=== PATIENT | female | born 1935 | race Caucasian/White ===

== ENCOUNTER 2018-05-18 10:21 | Observation (INO) | payer MEDICARE ==
--- NOTE | 2018-05-18 10:59 | ED ---
Lower Extremity - HPI Summary HPI Summary: A 83 y/o female brought in by ambulance presents to the ED c/o left leg pain reaching 6/10 in severity. In the ED room, the patient has a pulse of 164/83. As per triage, "Pt complaints of left leg pain since jan. Patient was suppose to have Sx but didn't go through with surgery due to bad heart valve. Patient fell 6 weeks ago". Patient stated that she is worried about her dog (11 y/o adela) as it is very thin and has not been eating. Additionally, the patient noted that her house is a disaster. She stated that she is being treated at several hospitals for medical issues for incontinence, aortic stenosis, valve replacement, and hip replacement, but cannot remember what hospitals she is being treated at. She mentions [facility] and [facility], but cannot recall her treatment at each facility. She stated that there was a planned hip replacement on February 07, 2018, but it was not done due to the patient's valve condition where it was pushed to May 2018. She came to the ED today because when she was attempting to feed her dog, all of her muscles in the left leg hurt. She noted that she could not ambulate and came to [facility] because she does not have any close friends and family and is hoping someone will feed her dog. Patient stated that she use to have a productive cough that brought up yellow flem, however, she is fine now. She denies any diarrhea, fever, chills, or diaphoresis. She stated that she fell 4 weeks back. Patient has not been eating well for past 2 days. Patient stated that she has no electricity and rodent infestation at her home. - History of Current Complaint Chief Complaint: EDExtremityLower Stated Complaint: DECREASED MOBILITY Time Seen by Provider: 05/18/18 10:26 Hx Obtained From: Patient Mechanism Of Injury: Fall From A Standing Position, Other - PAIN HAS BEEN PRESENT SINCE JANUARY 2018 Onset of Pain: Immediate Onset/Duration: Still Present Severity Initially: Moderate Severity Currently: Moderate Pain Intensity: 6 Pain Scale Used: 0-10 Numeric Location: Is Discrete @ - LEFT LEG Character Of Pain: Spasmodic Associated Signs And Symptoms: Positive: Negative Aggravating Factor(s): Standing Alleviating Factor(s): Nothing Able to Bear Weight: No - PER PATIENT - Allergies/Home Medications Allergies/Adverse Reactions: Allergies Allergy/AdvReac Type Severity Reaction Status Date / Time Opioids - Morphine Analogues Allergy Vomiting Verified 05/18/18 10:36 Penicillins Allergy Unknown Verified 05/18/18 10:36 Reaction Details Home Medications: Home Medications Metoprolol Tartrate TAB* [Lopressor TAB*] 25 mg PO BID 05/18/18 [History Confirmed 05/18/18] PMH/Surg Hx/FS Hx/Imm Hx Endocrine/Hematology History: Reports: Hx Thyroid Disease Denies: Hx Diabetes Cardiovascular History: Reports: Hx Hypertension, Other Cardiovascular Problems/ Disorders - MILD AORTIC STENOSIS PER PT Respiratory History: Reports: Hx Asthma Denies: Hx Chronic Obstructive Pulmonary Disease (COPD) GI History: Denies: Hx Ulcer Musculoskeletal History: Reports: Hx Arthritis - KNEES Sensory History: Reports: Hx Cataracts - BILAT, Hx Contacts or Glasses - GLASSES Denies: Hx Hearing Aid Opthamlomology History: Reports: Hx Cataracts - BILAT, Hx Contacts or Glasses - GLASSES Psychiatric History: Reports: Hx Anxiety - Surgical History Surgery Procedure, Year, and Place: THYROIDECTOMY, GALL BLADDER REMOVED, right knee replacement Hx Anesthesia Reactions: No Infectious Disease History: No Infectious Disease History: Denies: Hx Clostridium Difficile, Hx Hepatitis, Hx Human Immunodeficiency Virus (HIV), Hx of Known/Suspected MRSA, Hx Shingles, Hx Tuberculosis, Hx Known/ Suspected VRE, Hx Known/Suspected VRSA, History Other Infectious Disease, Traveled Outside the [place] in Last 30 Days - Family History Known Family History: Positive: Cardiac Disease - CHF, Hypertension, Diabetes - Social History Alcohol Use: None Substance Use Type: Reports: None Smoking Status (MU): Never Smoked Tobacco Review of Systems Negative: Fever, Chills, Skin Diaphoresis Negative: Erythema Negative: Sore Throat Negative: Chest Pain Negative: Shortness Of Breath, Cough Positive: Other - POSITIVE: APPETITE CHANGES. Negative: Abdominal Pain, Vomiting, Diarrhea, Nausea Negative: dysuria, hematuria Positive: Other - POSITIVE: LEFT LEG PAIN. Negative: Myalgia, Edema Negative: Rash Neurological: Other - NEGATIVE: DIZZINESS All Other Systems Reviewed And Are Negative: Yes Physical Exam - Summary Physical Exam Summary: Constitutional: Well-developed, Well-nourished, Alert. (-) Distressed Skin: Warm, Dry HENT: Normocephalic; Atraumatic Eyes: Conjunctiva normal Neck: Musculoskeletal ROM normal neck. (-) JVD, (-) Stridor, (-) Tracheal deviation Cardio: Rhythm regular, rate normal, Heart sounds normal; Intact distal pulses; The pedal pulses are 2+ and symmetric. Radial pulses are 2+ and symmetric. (-) Murmur Pulmonary/Chest wall: Effort normal. (-) Respiratory distress, (-) Wheezes, (-) Rales Abd: Soft, (-) epigastric tenderness, (-) Distension, (-) Guarding, (-) Rebound Musculoskeletal: Tender in left hip and left knee. Significant weeping edema retirement up to the calf. Lymph: (-) Cervical adenopathy Neuro: Alert, Oriented x3 Psych: Mood and affect Normal Triage Information Reviewed: Yes Vital Signs On Initial Exam: Initial Vitals Temp Pulse Resp BP Pulse Ox 99.0 F 79 16 164/83 100 05/18/18 10:26 05/18/18 10:26 05/18/18 10:26 05/18/18 10:26 05/18/18 10:26 Vital Signs Reviewed: Yes Diagnostics - Vital Signs Vital Signs Temp Pulse Resp BP Pulse Ox 05/18/18 10:26 99.0 F 79 16 164/83 100 - Laboratory Result Diagrams: 05/18/18 11:40 05/18/18 11:17 Lab Statement: Any lab studies that have been ordered have been reviewed, and results considered in the medical decision making process. - Radiology CXR Radiology Interpretation Completed By: Radiologist Summary of Radiographic Findings: CARDIOMEGALY. INTERSTITIAL EDEMA CONSISTENT WITH VASCULAR CONGESTION. NO ALVEOLAR CONSOLIDATION IS NOTED. ED PHYSICIAN REVIEWED THIS RADIOLOGY REPORT. KNEE XR Radiology Interpretation Completed By: Radiologist Summary of Radiographic Findings: There is deformity of the left knee with degenerative changes of the. patellofemoral joint. ED PHYSICIAN REVIEWED THIS RADIOLOGY REPORT. - CT PELVIS CT CT Interpretation Completed By: Radiologist Summary of CT Findings: 1. OSTEOPENIA. 2. OSTEOARTHRITIS. 3. NO ACUTE OSSEOUS INJURY. IF SYMPTOMS PERSIST, RECOMMEND REPEAT IMAGING. ED PHYSICIAN REVIEWED THIS RADIOLOGY REPORT. Lower Extremity Course/Dx - Course Assessment/Plan: A 83 y/o female brought in by ambulance presents to the ED c/o left leg pain reaching 6/10 in severity. In the ED room, the patient has a pulse of 164/83. She came to the ED today because when she was attempting to feed her dog, all of her muscles in the left leg hurt. She noted that she could not ambulate and came to [facility] because she does not have any close friends and family and is hoping someone will feed her dog. Patient stated that she use to have a productive cough that brought up yellow flem, however, she is fine now. She denies any diarrhea, fever, chills, or diaphoresis. She stated that she fell 4 weeks back. Patient has not been eating well for past 2 days. Patient stated that she has no electricity and rodent infestation at her home. Physical examination findings significant for tender in left hip and left knee. Significant weeping edema retirement up to the calf. Assessment/Plan revealed significant concerns for the patient. Patient is not eating. There could be safety issues with hoarding at patient's house. Patient has no electricity and has a rodent infestation. A Pelvis CT revealed 1. Osteopenia. 2. Osteoarthritis. 3. No acute osseous injury. If symptoms persist, recommend repeat imaging. A CXR revealed cardiomegaly. Interstitial edema consistent with vascular congestion. No alveolar consolidation is noted. A Knee XR revealed there is deformity of the left knee with degenerative changes of the patellofemoral joint. Hematology, coagulation, and Chemistry screens were done. No significant laboratory abnormalities were found except hyperglycemia of 103 mg/dL and elevated BNP of 264 pg/mL. Troponin I was 0.01. In the ED course, the patient received [place] and Lasix IV. Patient care was discussed with hospitalist , Dr. Benji Contreras, who accepts patient for admission. Patient will be admitted with a diagnosis of failure to thrive, degenerative joint disease of hip, CHF, and pulmonary edema. Patient is agreeable with this plan. - Diagnoses Provider Diagnoses: Failure to thrive, Degenerative joint disease (DJD) of hip, CHF (congestive heart failure), Pulmonary edema - Physician Notifications Discussed Care Of Patient With: Benji Contreras Time Discussed With Above Provider: 13:01 Instructed by Provider To: Other - ACCEPTS PATIETN FOR ADMISSION. Discharge - Sign-Out/Discharge Documenting (check all that apply): Patient Departure - ADMIT, Sign-Out Jennifer - JAXON Signing out patient TO: Benji Contreras Receiving patient FROM: Varinder Silveira - Discharge Plan Condition: Stable Disposition: ADMITTED TO [facility] Referrals: Ronda COOPER DANCE CHOREOGRAPHERGertrude Dietrich [Primary Care Provider] - - Attestation Statements Document Initiated by Scribe: Yes Documenting Scribe: Jeanmarie Rodrigues Provider For Whom Scribe is Documenting (Include Credential): Varinder Silveira MD Scribe Attestation: Jeanmarie Candelaria, scribed for Varinder Silveira MD on 05/18/18 at 1310. Status of Scribe Document: Ready
[2018-05-18 11:33] LABS: Activated Partial Thrombo Time 18.3 seconds (26.0-36.3); INR 0.9 (0.77-1.02)
[2018-05-18 11:47] LABS: Hematocrit 42 % (35-47); Hemoglobin 13.4 g/dl (12.0-16.0); Mean Corpuscular HGB Conc 32 g/dl (31-36); Mean Corpuscular Hemoglobin 28 pg (27-31); Mean Corpuscular Volume 88 fL (80-97); Mean Platelet Volume 7.6 fL (7.4-10.4); Platelet Count 287 10^3/ul (150-450); Red Blood Count 4.73 10^6/ul (4.00-5.40); Red Cell Distribution Width 15 % (10.5-15); White Blood Count 7.7 10^3/ul (3.5-10.8)
[2018-05-18 12:09] LABS: Albumin 4.1 g/dL (3.2-5.2); Calcium 9.6 mg/dL (8.6-10.3); Potassium 4.3 mmol/L (3.5-5.0); Total Bilirubin 0.6 mg/dL (0.2-1.0)
[2018-05-18 12:15] LABS: Albumin/Globulin Ratio 1.4 (1-3); BUN/Creatinine Ratio 58.8 (8-20); EGFR African American 139.4 (>60); EGFR Non-African American 115.2 (>60); Globulin 2.9 g/dL (2-4)
[2018-05-18] MEDS ORDERED: Furosemide IV* 10 MG/ML 2 ML VIAL (20 MG) IV ONE (12:21)
[2018-05-18 12:22] LABS: Troponin I 0.01 ng/mL (<0.04)
[2018-05-18 12:59] LABS: Immature Granulocytes 1 % (0-9); Lymphocytes % 14 %; Neutrophil % 81 %
[2018-05-18 13:01] LABS: ABS Neutrophils 6.3 10^3/ul (1.5-7.7)
[2018-05-18 13:02] LABS: ABS Basophils 0 10^3/ul (0-0.2); ABS Eosinophils 0.3 10^3/ul (0-0.6)
[2018-05-18] MEDS: HYDROcodone/ACETAMIN 5-325 MG* 1 TAB PO ONE ×2 (13:31→14:27)
[2018-05-18] MEDS ORDERED: Ondansetron ODT TAB* 4 MG SL ONE (13:36)
[2018-05-18] MEDS ORDERED: Acetaminophen TAB* 325 MG PO PRN (13:37)
[2018-05-18] MEDS ORDERED: Ondansetron INJ* 2 MG/ML VIAL IV PRN (13:37)
[2018-05-18] MEDS ORDERED: Diazepam TAB(*) 5 MG ONE (13:46)
[2018-05-18] MEDS: Diazepam TAB(*) 5 MG PO PRN ×2 (13:47→20:01)
[2018-05-18] MEDS ORDERED: Albuterol 2.5 MG/3 ML NEB.SOL* (0.083%) INH PRN (14:00)
--- NOTE | 2018-05-18 15:39 | HP ---
AMENDED REPORT NOW INCLUDES DESIGNATED COSIGNER CC: Dr. Alisa De Souza; Dr. Amado; Dr. Koehler, [place] * HISTORY AND PHYSICAL: DATE OF ADMISSION: 05/18/18 PRIMARY CARE PROVIDER: Dr. Alisa De Souza. ATTENDING PHYSICIAN WHILE IN THE HOSPITAL: Dr. Benji Contreras * (report dictated by Rick Glez NP). CONSULTING HANDYMAN: Dr. Amado. PRIMARY ORTHOPEDIC SURGEON: Dr. Koehler from [place]. CHIEF COMPLAINT: 1. Left hip pain. 2. Fall. HISTORY OF PRESENT ILLNESS: Ms. Lamar is an 83-year-old female patient, carries a history of severe aortic stenosis to critical aortic stenosis, who has a history of cataracts, hypothyroidism, COPD, fibromyalgia, aortic stenosis , there is a question of history of atrial fibrillation, and history of breast cancer, who also has significant arthritis particularly in her left hip and left knee, who comes into the ED today stating that she was having trouble getting around the house because she was having significant amount of pain in the left hip. She said that she fell on her knee about a week ago. She has had increasing falls. She has been having trouble setting mouse traps and taking care of her home and having trouble bathing because she has been in so much pain. She does have a hip replacement scheduled for a month out from now with Dr. Koehler in [place], [place], but unfortunately, she just could not bear the pain anymore, so she decided to come into the ED today. She denies having any chest pain or shortness of breath. Denies having any abdominal pain. She denies having any vomiting or diarrhea. There have been no fevers or chills. She denies having any recent change in medications with the exception she was recently started on Valium and tramadol for pain. She says that the discomfort was just becoming too great. She decided to come into the ED today to be evaluated. She was evaluated here in the ED. There was concern initially by our ED provider that she may have CHF, although she does not exhibit any signs of shortness of breath or complaints of this. We were asked to evaluate for admission. PAST MEDICAL HISTORY: Again, significant for: 1. Severe aortic stenosis. 2. Cataracts. 3. Hypothyroidism. 4. COPD. 5. Fibromyalgia. 6. Question of history of atrial fibrillation. 7. Breast cancer. 8. She has a history of left bundle branch block as well. PAST SURGICAL HISTORY: She has had: 1. Tonsillectomy. 2. D and C. 3. Thyroidectomy. 4. Laparoscopic cholecystectomy. 5. Mastectomy. 6. Right total knee replacement. MEDICATIONS: Home medications include according to the list that she provided: 1. Toprol 25 mg p.o. twice a day. 2. Synthroid 100 mcg p.o. daily. 3. Aspirin 325 mg t.i.d. as needed. 4. Amlodipine 10 mg daily. 5. Valium 5 mg daily. ALLERGIES TO MEDICATIONS: Include: 1. PENICILLIN. 2. OPIATES. FAMILY HISTORY: Reviewed and essentially noncontributory. SOCIAL HISTORY: She does not smoke. She does not drink. Surrogate decision maker is not appointed at this point. She lives alone. REVIEW OF SYSTEMS: There is no documented fever. She denies having any significant weight change. She denies having any double vision. There was no ear discharge. There is no rhinorrhea, no sore throat. She denies having any chest pain. She denies any shortness of breath. Denies any orthopnea. There is no nocturnal dyspnea. No nausea, no vomiting, no abdominal pain. No dysuria , no frequency. No seizure, no loss of consciousness. No pruritus and no skin ulcerations. Review of 14 systems was completed, all others negative. PHYSICAL EXAMINATION GENERAL: At this time, Ms. Lamar is an 83-year-old female patient. She appears to be again disheveled. She appears to be chronically ill-appearing. She does not appear to be in any acute distress. VITAL SIGNS: Blood pressure 158/87, pulse of 78, respirations are 18, O2 sat 95 %, temperature 99.0. HEENT: Head: Atraumatic and normocephalic. Eyes: EOMs intact. Sclerae anicteric and not pale. Throat: Oral mucosa appears to be moist. No oropharyngeal erythema. NECK: Supple. LUNGS: Clear to auscultation. There were no wheezes, rales, or rhonchi. HEART: Sounds S1, S2. She had a regular rate and rhythm. There were no murmurs, rubs, or gallops. ABDOMEN: Soft, flat, nontender. Bowel sounds were present. EXTREMITIES: She had bilateral lower extremity edema. She has a history of chronic lymphedema. The bottom of her feet did appear to have fecal matter on them, but no open areas were noted. She had no erythema or redness, but she did have pitting edema bilaterally and chronic venous stasis changes. She has limited range of motion to her left hip with hip extension and flexion that causes her significant pain in her quadriceps and hamstring muscles. She is moving upper extremities with 5/5 strength. NEUROLOGIC: She is awake. She is alert. She is oriented. She knows it is April, but she does not know what day of the week it is. Her speech was clear. Tongue was midline. No facial drooping. She had no gross focal deficits. SKIN: Intact. DIAGNOSTIC STUDIES/LAB DATA: Labs today are revealing a WBC of 7.7, RBC of 4.73, hemoglobin of 13.4, hematocrit of 42, platelet count 287. INR of 0.90, PTT of 18.3. Sodium 141, potassium of 4.3, chloride 108, bicarb 23, BUN 30, creatinine of 0.51, glucose 103, lactic 0.9, calcium 9.6. Total bili 0.6, AST 15, ALT 10, alk phos 59. Troponin 0.01, BNP of 264. Albumin of 4.1. She had a knee x-ray obtained today, which showed there is varus deformity of the knee with degenerative changes of the patellofemoral joint. She had a pelvis CT obtained today, which showed osteopenia, osteoarthritis severe in the left hip. No acute osseous injury is seen. Chest x-ray obtained today, which revealed cardiomegaly, interstitial edema consistent with vascular congestion. No alveolar consolidation is noted. Old medical records were reviewed. ASSESSMENT AND PLAN: Ms. Lamar is an 83-year-old female patient coming into the ED today with complaints of significant left hip pain, difficulty with ambulation. She was evaluated in the ED. There were initial concerns for congestive heart failure. She will be admitted under observation status for: 1. Left hip pain: I suspect this is probably a chronic issue related to the patient's severe osteoarthritis. She has scheduled hip replacement in a month from now with Dr. Koehler. I am getting records. She has known severe to critical aortic stenosis. According to the patient's PCP who I touched base with, Dr. Alisa De Souza, number [phone], explained to me that they were planning on fixing her valve in conjunction with replacing her hip down in [place]. She is not having any cardiac symptoms, but her main complaint is pain in the left hip and having decreased mobilization. I would like to go ahead and get her Lidoderm patch, start tramadol p.r.n. and Valium, have PT evaluate her and get the records from Dr. Koehler' office and continue to follow. 2. Concern for congestive heart failure: She is not having any shortness of breath. She is not wheezing on exam. I would be hesitant to give her Lasix because if we lower her blood pressure too much with significant aortic stenosis that could certainly cause her to faint and other symptoms, so at this point, I am holding off and not giving her any diuretics. I will repeat her echo. She apparently had a cath done in January of 2018 just recently, so I am trying to get that record from the [place] if possible. 3. Social issues: Again, according to Dr. De Souza, the patient's house is in disarray, she is not able to care for herself, she has not been able to bathe herself because of the pain, she has been missing appointments occasionally, in addition to this having trouble with her medications and remembering when to take them. She has been having a significant amount of pain. There has been concern that she has been declining because she has not been up ambulatory due to the pain. So, at this point, Social Work is evaluating the patient. We may need to consider a rehab stay until she has the procedure done. 4. Hypothyroidism: Continue Synthroid. 5. Chronic obstructive pulmonary disease: I will order p.r.n. albuterol. She does not appear to be in exacerbation. 6. Fibromyalgia: We will continue pain meds as prescribed. 7. History of question of atrial fibrillation: I do not see this mentioned in Dr. Amado's notes, but there is a history of left bundle branch block. We will monitor her. 8. Breast cancer: Follow up with PCP. 9. DVT prophylaxis: She is high risk. She will be placed on heparin subcu. 10. Code status: Full code. 11. Fluids, electrolytes, and nutrition: She can have a regular diet. TIME SPENT: Time spent on the admission was 60 minutes, greater than half of the time was spent [id number] with the patient obtaining my history and physical, other half time was spent going over the plan of care with the patient and implementing plan of care. I discussed the plan of care with my attending, Dr. Contreras; he is in agreement. RICK GLEZ, MAIL OPENER [id number]/CPS #: [id number] INÉS
[2018-05-18] MEDS: Heparin VIAL(*) 5000 UNITS/ML VIAL (FIVE THOUSAND) SUBCUT SCH ×2 (15:57→22:35)
[2018-05-18] MEDS: Gabapentin CAP(*) 100 MG PO SCH ×2 (16:22→19:56)
[2018-05-18 18:24] LABS: EGFR African American 98.3 (>60); EGFR Non-African American 81.3 (>60)
[2018-05-18] MEDS: traMADol TAB* 50 MG PO PRN (20:00)
[2018-05-18] MEDS: Metoprolol Tartrate TAB* 25 MG PO SCH (20:02)
[2018-05-18] MEDS ORDERED: Ondansetron ODT TAB* 4 MG PO PRN (20:35)
[2018-05-18] MEDS ORDERED: Ondansetron ODT TAB* 4 MG ONE (20:51)
[2018-05-18] MEDS ORDERED: Lidocaine Patch REMOVE* 1 NOTE MISC SCH (21:00)
[2018-05-19] MEDS: traMADol TAB* 50 MG PO PRN (04:06)
[2018-05-19] MEDS: Diazepam TAB(*) 5 MG PO PRN (04:16)
[2018-05-19] MEDS ORDERED: Levothyroxine TAB* 100 MCG TAB PO SCH (06:00)
[2018-05-19] MEDS: Heparin VIAL(*) 5000 UNITS/ML VIAL (FIVE THOUSAND) SUBCUT SCH ×2 (06:17→13:27)
[2018-05-19 06:58] LABS: Hematocrit 34 % (35-47); Hemoglobin 11.3 g/dl (12.0-16.0); Mean Corpuscular HGB Conc 33 g/dl (31-36); Mean Corpuscular Hemoglobin 29 pg (27-31); Mean Corpuscular Volume 88 fL (80-97); Mean Platelet Volume 7.6 fL (7.4-10.4); Platelet Count 218 10^3/ul (150-450); Red Blood Count 3.88 10^6/ul (4.00-5.40); Red Cell Distribution Width 15 % (10.5-15); White Blood Count 6.1 10^3/ul (3.5-10.8)
[2018-05-19 07:10] LABS: INR 0.95 (0.77-1.02)
[2018-05-19 07:16] LABS: BUN/Creatinine Ratio 60.3 (8-20); Calcium 8.8 mg/dL (8.6-10.3); EGFR African American 109.2 (>60); EGFR Non-African American 90.2 (>60); Potassium 4.3 mmol/L (3.5-5.0)
[2018-05-19 07:31] LABS: ABS Basophils 0 10^3/ul (0-0.2); ABS Eosinophils 0.3 10^3/ul (0-0.6); ABS Lymphocytes 1.2 10^3/ul (1.0-4.8); ABS Monocytes 0.6 10^3/ul (0-0.8); ABS Neutrophils 4.1 10^3/ul (1.5-7.7)
[2018-05-19 07:35] LABS: Lymphocytes % 25 %; Monocytes % 8 %; Neutrophil % 65 %
[2018-05-19] MEDS ORDERED: amLODIPine TAB* 5 MG PO SCH (09:00)
[2018-05-19] MEDS ORDERED: Lidocaine PATCH 5%* 1 PATCH TRANSDERM SCH (09:00)
[2018-05-19] MEDS ORDERED: Polyethylene Glycol 3350* 17 GM PACKET PO SCH (09:00)
[2018-05-19 10:02] LABS: Troponin I 0.03 ng/mL (<0.04)
[2018-05-19] MEDS: Metoprolol Tartrate TAB* 25 MG PO SCH (10:54)
[2018-05-19] MEDS: Gabapentin CAP(*) 100 MG PO SCH ×2 (10:54→13:26)
[2018-05-19 12:40] LABS: Urine Appearance Cloudy; Urine Bacteria 3+ (Absent); Urine Bilirubin Negative (Negative); Urine Blood 1+ (Negative); Urine Color Yellow; Urine Glucose Negative (Negative); Urine Ketones Negative (Negative); Urine Nitrite Negative (Negative); Urine Protein Negative (Negative); Urine Red Blood Cell Trace(0-2/hpf) (Absent); Urine Specific Gravity 1.023 (1.010-1.030); Urine Urobilinogen Negative (Negative); Urine White Blood Cell 2+(11-20/hpf) (Absent)
--- NOTE | 2018-05-19 14:05 | TRS ---
TRANSFER SUMMARY: DATE OF ADMISSION: 05/18/18 DATE OF TRANSFER: 05/19/18 ACCEPTING FACILITY: [facility]. PRINCIPAL TRANSFER DIAGNOSES: 1. Failure to thrive. 2. Critical aortic stenosis. 3. Left hip osteoarthritis. 4. Left hip flexion contracture. 5. Left knee osteoarthritis. SECONDARY TRANSFER DIAGNOSES: 1. Hypothyroidism. 2. Cataract. 3. Chronic obstructive pulmonary disease. 4. Fibromyalgia. 5. History of left bundle branch block. 6. Questionable history of atrial fibrillation. MEDICATIONS AT THE TIME OF TRANSFER: 1. Metoprolol 25 mg b.i.d. 2. Valium 5 mg q.6 p.r.n. anxiety. 3. Aspirin 325 t.i.d., p.r.n. pain. 4. Levothyroxine 100 mcg daily. 5. Amlodipine 10 mg daily. PHYSICAL EXAM AT THE TIME OF TRANSFER: Temperature 97.5, heart rate 80, respiratory rate 20, pulse ox 96% on room air, blood pressure 123/62. General: Alert, well-appearing female in no acute distress. She is breathing comfortably, has no orthopnea, is able to speak in full sentences and is oriented to person, place, time and situation. HEENT: Pupils equal, round and reactive to light. Oral mucosa is moist with no pharyngeal exudates or erythema. Neck: Jugular veins are distended with JVP noted to approximately 10 cm. Chest: She is in a regular rate and rhythm with a systolic murmur and S2 is diminished. The murmur radiates to the carotids. She has diminished breath sounds at the bases, but no wheezes or rhonchi. Abdomen: Soft, nontender, nondistended. No guarding or rebound. No CVA tenderness. Extremities: She is tender to palpation in the left thigh, but it is soft and without any skin changes. She has decreased active and passive range of motion in the left hip and the left knee. Bilateral feet have chronic skin changes with shriveled skin and unkempt toenails. She has no lower extremity edema. Her deep tendon reflexes are 2+ in the patellar and her DP and PT pulses are 2+ bilaterally. HOSPITAL COURSE BY PROBLEM: 1. Failure to thrive: Ms. Lamar came to the emergency department because she was unable to walk. It sounds like these symptoms have been ongoing for several weeks and has slowly progressed possibly even over the past month. She had been barely been able to get around her mobile home. She does not cite any specific events that led up to this, but that this has been a slow decline recently. She has fallen several times over the past month. Her workup has included a pelvis CT and a knee x-ray, neither of which showed fractures. he has no metabolic evidence for weakness. I am waiting for a urinalysis to see if that may be contributing to her weakness; however, it has been very subacute in her description and she has had no fever or leukocytosis to suggest an underlying infectious etiology. She denies syncope or shortness of breath or chest pain contributing to her decreased functional capacity. So I do not believe or sense that it is her critical aortic stenosis that is being symptomatic and leading to her decline, but rather that it is her hip, knee and flexion contracture as she describes ongoing pain that has prevented her from maintaining mobility. Currently in our hospital, she has a 2 person max assist to get to the commode just a few feet away from her bed. Certainly, one option would be to discharge her from [facility] to a short-term rehab in hopes of completing rehabilitation in preparation for her scheduled surgery on 06/21/18, which she tells me is when her valve will be replaced, so that her hip can be repaired, though I do not have records from [facility] confirming this. While this is an option, I am very concerned that she would deteriorate further at rehab and I do not think she has viable rehab potential given critical aortic stenosis and in fact rehab could be dangerous for someone given her valvular heart disease. Therefore, I have spoken with Dr. Nunes from [facility], who agrees to accept her on his service. My proposal would be that the aortic valve repair or replacement occurs sooner than later with the hopes that this would allow her to proceed with orthopedic intervention, which is very would give her the potential to live independently as she had been doing prior to this event. 2. Critical aortic stenosis: I do not believe she is in decompensated heart failure. She has had 2 troponins here, which have been negative and she has not had syncope, chest pain, shortness of breath or orthopnea. Still, this certainly need to be repaired sooner than later and certainly prior to any orthopedic intervention, which is why I have proposed transfer as summarized previously. 3. Hypothyroidism: Continue current dose of Synthroid. 4. Hypertension: I have continued her home doses of Toprol and amlodipine with caution for hypotension and I would have a low threshold to discontinue the amlodipine. Her MAP at the time of discharge is 75. 5. Disposition: Ms. Lamar is being transferred to [facility] on . She is agreeable to this transfer and I have arranged for this to occur with Dion Bradford and the transfer center. [id number]/[facility] #: [id number] MTDD
[2018-05-19 14:08] LABS: ABS Eosinophils 0.1 10^3/ul (0-0.6)
[2018-05-19 14:39] VITALS: BP 117/47
== END 2018-05-19 14:40 | disposition short-term general hospital (02) ==
LOC: ED 10:21 → MED 13:31
PROVIDERS: ADMIT Internal Medicine; ATTEND Internal Medicine
DX: I35.0 Nonrheumatic aortic (valve) stenosis (principal); M79.605 Pain in left leg; I50.9 Heart failure, unspecified; J81.1 Chronic pulmonary edema; Z88.0 Allergy status to penicillin; M25.552 Pain in left hip; I10 Essential (primary) hypertension; R62.7 Adult failure to thrive; M85.80 Other specified disorders of bone density and structure, unspecified site; M19.90 Unspecified osteoarthritis, unspecified site
CPT/HCPCS: 36415; 71045; 72192; 80048; 80053; 81003; 81015; 82565; 83605; 83880; 84484; 84520; 85025; 85060; 85610; 85730; 87040; 87077; 87086; 87186; 96372; 96374; 96375; 99284; A9270-GY; G0378; J1644; J1940; J2405

== ENCOUNTER → 2018-08-09 12:40 | Emergency (ER) | payer MEDICARE ==
[~2018-08-09 12:40] MED LIST: Diazepam TAB(*) 5 MG PO ONE
[2018-08-09 13:52] LABS: Urine Appearance Clear; Urine Bilirubin Negative (Negative); Urine Blood Negative (Negative); Urine Color Straw; Urine Glucose Negative (Negative); Urine Ketones Negative (Negative); Urine Nitrite Negative (Negative); Urine Protein Negative (Negative); Urine Specific Gravity 1.008 (1.010-1.030); Urine Urobilinogen Negative (Negative)
[2018-08-09 13:53] LABS: Hematocrit 38 % (33-41); Hemoglobin 12.6 g/dL (12.0-16.0); Mean Corpuscular HGB Conc 33 g/dL (31-36); Mean Corpuscular Hemoglobin 28 pg (27-31); Mean Corpuscular Volume 83 fL (80-97); Mean Platelet Volume 7.4 fL (7.4-10.4); Platelet Count 266 10^3/uL (150-450); Red Blood Count 4.55 10^6 /uL (3.70-4.87); Red Cell Distribution Width 15 % (10.5-15); White Blood Count 8.2 10^3/uL (3.5-10.8)
--- NOTE | 2018-08-09 14:08 | ED ---
Abdominal Pain/Female - HPI Summary HPI Summary: This patient is an 83 year old F sent by the physicians kennel assistant of [facility] via EMS to [facility] with a chief complaint of RLQ abdominal pain since 4 weeks ago. The patient rates the pain 10/10 in severity. Abdominal pain pathway initiated upon arrival. Patient denies urinary symptoms and an indwelling Keita. UA is negative. WBC is 8.2 (normal). PMHx of dementia, PSHx of appendectomy. She reports that she is in physical therapy because she is unable to ambulate. No explanation was given as to why she can not ambulate. Vital signs while in room: HR 68 bpm, BP 159/98. Home Medications Medication Instructions Recorded Confirmed Type Amlodipine Besylate 5 mg PO DAILY 12/29/13 08/09/18 History Levothyroxine TAB* [Synthroid 100 100 mcg PO 0800 12/29/13 08/09/18 History MCG TAB*] Diazepam TAB(*) [Valium TAB(*)] 5 mg PO Q12H PRN 08/05/15 08/09/18 History Metoprolol Tartrate TAB* 25 mg PO BID 05/18/18 08/09/18 History [Lopressor TAB*] Acetaminophen [Acetaminophen ER] 650 mg PO Q4H PRN 05/26/18 08/09/18 History Albuterol Sulfate [Proventil Hfa] 2 puff INH Q4H PRN 05/26/18 08/09/18 History Mirabegron [Myrbetriq] 25 mg PO DAILY 05/26/18 08/09/18 History Olopatadine 0.1% OPHTH (NF) 1 drop BOTH EYES DAILY 05/26/18 08/09/18 History [Patanol 0.1% OPHTH (NF)] Ondansetron HCl [Zofran 4 MG TAB] 4 mg PO QID PRN 05/26/18 08/09/18 History Pregabalin CAP(*) [Lyrica CAP(*)] 25 mg PO BID 05/26/18 08/09/18 History QUEtiapine TAB* [Seroquel 25 MG 50 mg PO BEDTIME 05/26/18 08/09/18 History TAB*] Senna TAB* [Senokot TAB*] 1 tab PO BID PRN 05/26/18 08/09/[address] CAP* [Cymbalta CAP*] 20 mg PO ONCE 08/09/18 08/09/18 History Polyethylene Glycol 3350* 17 gm PO DAILY 08/09/18 08/09/18 History [Miralax*] traMADol TAB* [Ultram*] 50 mg PO Q12H PRN 08/09/18 08/09/18 History - History of Current Complaint Chief Complaint: EDAbdPain Stated Complaint: ABD PAIN PER EMS Time Seen by Provider: 08/09/18 12:53 Hx Obtained From: Patient Onset/Duration: Lasting Weeks, Still Present Timing: Constant Severity Currently: Severe Pain Intensity: 10 Pain Scale Used: 0-10 Numeric Location: Discrete At: RLQ Radiates: No Aggravating Factor(s): Nothing Alleviating Factor(s): Nothing Associated Signs and Symptoms: Negative: Urinary Symptoms, Other: - indwelling Keita Allergies/Adverse Reactions: Allergies Allergy/AdvReac Type Severity Reaction Status Date / Time Opioids - Morphine Analogues Allergy Vomiting Verified 05/26/18 18:35 Penicillins Allergy Unknown Verified 05/26/18 18:35 Reaction Details Home Medications: Home Medications DULoxetine DR CAP* [Cymbalta CAP*] 20 mg PO ONCE 08/09/18 [History Confirmed ] Polyethylene Glycol 3350* [Miralax*] 17 gm PO DAILY 08/09/18 [History Confirmed 08/09/18] traMADol TAB* [Ultram*] 50 mg PO Q12H PRN 08/09/18 [History Confirmed 08/09/18] PMH/Surg Hx/FS Hx/Imm Hx Endocrine/Hematology History: Reports: Hx Thyroid Disease Denies: Hx Diabetes Cardiovascular History: Reports: Hx Hypertension, Other Cardiovascular Problems/ Disorders - MILD AORTIC STENOSIS PER PT Respiratory History: Reports: Hx Asthma Denies: Hx Chronic Obstructive Pulmonary Disease (COPD) GI History: Denies: Hx Ulcer Musculoskeletal History: Reports: Hx Arthritis - KNEES Sensory History: Reports: Hx Cataracts - BILAT, Hx Contacts or Glasses - GLASSES Denies: Hx Hearing Aid Opthamlomology History: Reports: Hx Cataracts - BILAT, Hx Contacts or Glasses - GLASSES Psychiatric History: Reports: Hx Anxiety - Surgical History Surgery Procedure, Year, and Place: THYROIDECTOMY, GALL BLADDER REMOVED, right knee replacement Hx Anesthesia Reactions: No Infectious Disease History: No Infectious Disease History: Denies: Hx Clostridium Difficile, Hx Hepatitis, Hx Human Immunodeficiency Virus (HIV), Hx of Known/Suspected MRSA, Hx Shingles, Hx Tuberculosis, Hx Known/ Suspected VRE, Hx Known/Suspected VRSA, History Other Infectious Disease, Traveled Outside the [place] in Last 30 Days - Family History Known Family History: Positive: Cardiac Disease - CHF, Hypertension, Diabetes - Social History Alcohol Use: None Substance Use Type: Reports: None Smoking Status (MU): Never Smoked Tobacco Review of Systems Positive: Abdominal Pain - RLQ abdominal pain Negative: other - Urinary symptoms and indwelling keita All Other Systems Reviewed And Are Negative: Yes Physical Exam - Summary Physical Exam Summary: Appearance: Ill-appearing, moderate pain distress, well-nourished. Patient examined while she is lying down flat. Skin: Warm, color reflects adequate perfusion, dry Head: Normal Head/Face inspection, atraumatic Eyes: Conjunctiva clear ENT: Normal inspection Neck: Supple, no nodes, no JVD Respiratory: Lungs clear, normal breath sounds, no respiratory distress Cardio: RRR, No murmur, pulses normal, brisk capillary refill Abdomen: Complains of pain from her hernia, but umbilical hernia is reducible. No redness and no swelling. No rebound, no guarding, no masses, no bruits, non- distended Bowel sounds: Present Musculoskeletal: Strength Intact/ROM intact, no calf tenderness, no edema. Diffuse scaly plaques on her lower anterior tibia. Psychological: Normal Neuro: Alert, muscle tone normal, no focal deficit Triage Information Reviewed: Yes Vital Signs On Initial Exam: Initial Vitals Temp Pulse Resp BP Pulse Ox 99.6 F 69 16 159/98 93 08/09/18 12:49 08/09/18 12:49 08/09/18 12:49 08/09/18 12:49 08/09/18 12:49 Vital Signs Reviewed: Yes Diagnostics - Vital Signs Vital Signs Temp Pulse Resp BP Pulse Ox 08/09/18 13:33 20 08/09/18 13:23 68 19 178/89 94 08/09/18 13:00 71 14 92 08/09/18 12:53 67 159/98 94 08/09/18 12:51 69 93 08/09/18 12:49 99.6 F 69 16 159/98 93 - Laboratory Lab Results: Lab Results 08/09/18 08/09/18 Range/Units 13:38 13:42 WBC 8.2 (3.5-10.8) 10^3/uL RBC 4.55 (3.70-4.87) 10^6 /uL Hgb 12.6 (12.0-16.0) g/dL Hct 38 (33-41) % MCV 83 (80-97) fL MCH 28 (27-31) pg MCHC 33 (31-36) g/dL RDW 15 (10.5-15) % Plt Count 266 (150-450) 10^3/uL MPV 7.4 (7.4-10.4) fL Neut % (Auto) Pending Lymph % (Auto) Pending [place] % (Auto) Pending Eos % (Auto) Pending Baso % (Auto) Pending Absolute Neuts (auto) Pending Absolute Lymphs (auto) Pending Absolute Monos (auto) Pending Absolute Eos (auto) Pending Absolute Basos (auto) Pending Absolute Nucleated RBC Pending Nucleated RBC % Pending Urine Color Straw Urine Appearance Clear Urine pH 9.0 (5-9) Ur Specific [place] 1.008 L (1.010-1.030) Urine Protein Negative (Negative) Urine Ketones Negative (Negative) Urine Blood Negative (Negative) Urine Nitrate Negative (Negative) Urine Bilirubin Negative (Negative) Urine Urobilinogen Negative (Negative) Ur Leukocyte Esterase Negative (Negative) Urine Glucose Negative (Negative) Result Diagrams: 08/09/18 13:42 08/09/18 13:42 Lab Statement: Any lab studies that have been ordered have been reviewed, and results considered in the medical decision making process. - EKG 14:18 Cardiac Rate: NL - 71 bpm EKG Rhythm: Sinus Rhythm ST Segment: Non-Specific Ectopy: None EKG Comparison: Other - No prior EKG to compare. Summary of EKG Findings: First degree AV block. Prolonged IVCT in LBBB pattern. Prolonged QTc. No prior EKG to compare. Re-Evaluation - Re-Evaluation 1 Re-Evaluation Time: 15:19 Comment: Patient is hungry and received a sandwich. 2 Re-Evaluation Time: 15:55 Comment: I performed another physical exam of the patient. She says, "I don't think I should stay here longer." Patient keeps repeating that she wants the door open. Vitals: HR 78 bpm, BP 172/70. 3 Re-Evaluation Time: 16:11 Comment: Patient asked about how to treat the pain. She was advised to undergo measures to stop the hernia from popping out and to take Tylenol. Vitals: HR 83 bpm. BP 156/84. Abdominal Pain Fem Course/Dx - Course Course Of Treatment: Pt complains of claustrophobia, has difficulty remaining in room for evaluation. Pt given diazepam 5 mg PO, her usual medicine for anxiety. Pt asks for something to calm her down. Labs are unremarkable except for CRP which is 29.67. She was able to eat a sandwich in the ED and her pain improved here. She agreed that she should go home. Negative Sgarbossa criteria. Patient is d/c with dx of abdominal pain and umbilical hernia, advised to follow up with Dr. Mohan Gomes, surgery. - Diagnoses Provider Diagnoses: Abdominal pain, Umbilical hernia Discharge - Sign-Out/Discharge Documenting (check all that apply): Patient Departure - D/C home Patient Received Moderate/Deep Sedation with Procedure: No - Discharge Plan Condition: Stable Disposition: HOME Patient Education Materials: Umbilical Hernia (ED), Abdominal Pain (ED) Referrals: Mohan Gomes MD [Medical Doctor] - 08/16/18 (for umbilical hernia, abdominal pain) Gertrude West RN [Primary Care Provider] - 2 Days Additional Instructions: Your labs did not show any serious abnormalities except an elevated CRP which is a nonspecific marker for infection or inflammation, but your white blood cell count was elsa. The labs did not indicate a definite cause of your pain today. You were able to eat a turkey sandwich in the ER. Your urine did not show infection. In the ER you were given your usual dose of valium 5mg to help you with claustrophobia while you were being evaluated in the ER. Your pain was improved without any pain medication. We saw your umbilical hernia but it does not need emergency surgery at this time. We did not make an appointment with surgery for you, but you should follow up with them within a week for evaluation for elective surgery of the umbilical hernia. Return to the ER if you have any new or worsening symptoms. - Attestation Statements Document Initiated by Kaseyibe: Yes Documenting Scribe: Jasper Brenner Provider For Whom Scribe is Documenting (Include Credential): Pamela Hudson MD Scribe Attestation: Jasper Candelaria, scribed for Pamela Hudson MD on 08/09/18 at 1941.
[2018-08-09 14:11] LABS: ALT 6 U/L (7-52); AST 11 U/L (13-39); Albumin 3.5 g/dL (3.2-5.2); Albumin/Globulin Ratio 1.1 (1-3); Alkaline Phosphatase 66 U/L (34-104); Amylase 45 U/L (29-103); Anion Gap 6 mmol/L (2-11); BUN/Creatinine Ratio 20.9 (8-20); Blood Urea Nitrogen 9 mg/dL (6-24); C Reactive Protein 29.67 mg/L (<8.01); CO2 Carbon Dioxide 27 mmol/L (22-32); Calcium 9.1 mg/dL (8.6-10.3); Chloride 104 mmol/L (101-111); EGFR African American 169.7 (>60); EGFR Non-African American 140.2 (>60); Globulin 3.2 g/dL (2-4); Glucose 88 mg/dL (70-100); Potassium 3.9 mmol/L (3.5-5.0); Sodium 137 mmol/L (135-145); Total Protein 6.7 g/dL (6.4-8.9)
[2018-08-09 14:12] LABS: Troponin I 0.01 ng/mL (<0.04)
[2018-08-09 14:18] LABS: INR 1.04 (0.77-1.02)
[2018-08-09 14:26] LABS: Lymphocytes % 14 %; Monocytes % 11 %; Neutrophil % 75 %
[2018-08-09 14:29] LABS: ABS Neutrophils 6.2 10^3/ul (1.5-7.7)
[2018-08-09 16:11] VITALS: BP 156/84
== END | disposition home or self-care (01) ==
LOC: ED 12:40
DX: R10.31 Right lower quadrant pain (principal); I44.7 Left bundle-branch block, unspecified; R94.31 Abnormal electrocardiogram [ECG] [EKG]; I10 Essential (primary) hypertension; K42.9 Umbilical hernia without obstruction or gangrene; E07.9 Disorder of thyroid, unspecified; J45.909 Unspecified asthma, uncomplicated; Z79.899 Other long term (current) drug therapy; Z79.890 Hormone replacement therapy; Z88.5 Allergy status to narcotic agent; Z88.0 Allergy status to penicillin
CPT/HCPCS: 36415; 80053; 81003; 82150; 83605; 83690; 84484; 85025; 85060; 85610; 85730; 86140; 93005; 99283; A9270-GY

== ENCOUNTER 2018-11-14 06:37 | Inpatient (IN) | payer MEDICARE ==
[2018-11-14] MEDS ORDERED: Levofloxacin 750 MG IVPREMIX(* 750 MG/150 ML BAG IVPB ONE (06:55)
[2018-11-14 07:20] LABS: ABS Basophils 0.1 10^3/ul (0-0.2); ABS Eosinophils 0.1 10^3/ul (0-0.6); ABS Lymphocytes 0.6 10^3/ul (1.0-4.8); ABS Monocytes 0.9 10^3/ul (0-0.8); Eosinophil % 0.5 %; Hematocrit 34 % (35-47); Hemoglobin 11.4 g/dL (12.0-16.0); Lymphocyte % 5.7 %; Mean Corpuscular HGB Conc 34 g/dL (31-36); Mean Corpuscular Hemoglobin 28 pg (27-31); Mean Corpuscular Volume 82 fL (80-97); Mean Platelet Volume 7.4 fL (7.4-10.4); Platelet Count 209 10^3/uL (150-450); Red Blood Count 4.09 10^6 /uL (3.70-4.87); Red Cell Distribution Width 17 % (10-15); White Blood Count 10.6 10^3/uL (3.5-10.8)
[2018-11-14 07:36] LABS: INR 1.21 (0.82-1.09)
[2018-11-14 07:37] LABS: Albumin 3.7 g/dL (3.2-5.2); Albumin/Globulin Ratio 1.2 (1-3); BUN/Creatinine Ratio 48.9 (8-20); C Reactive Protein 115.95 mg/L (<8.01); Calcium 8.9 mg/dL (8.6-10.3); EGFR Non-African American 133.1 (>60); Globulin 3.1 g/dL (2-4); Potassium 3.9 mmol/L (3.5-5.0); Total Bilirubin 0.7 mg/dL (0.2-1.0); Total Protein 6.8 g/dL (6.4-8.9)
[2018-11-14 07:45] LABS: Troponin I 0.01 ng/mL (<0.04)
--- NOTE | 2018-11-14 08:25 | ED ---
HPI Febrile Illness - HPI Summary HPI Summary: This patient is an 83-year-old female presenting to the ED from [facility] with worsening SOB 2 days. [facility] medical staff noted a decline with worsening shortness of breath requiring cough. Patient is brought by way of EMS. She denies history of COPD or asthma. Per nursing staff, they state they have had an influx of PNA throughout the group home. She is currently on 2L with sat at 93%. - History of Current Complaint Chief Complaint: EDShortnessOfBreath Time Seen by Provider: 11/14/18 06:47 Hx Obtained From: Patient, EMS, Medical Records Hx From Patient Unobtainable Due To: Dementia Onset/Duration: Started Days Ago Timing: Constant Initial Severity: Severe Current Severity: Severe Pain Intensity: 0 Pain Scale Used: 0-10 Numeric Alleviating Factors: Nothing Associated Signs and Symptoms: Negative - Risk Factors Pseudomonas Risk Factors: Negative Serious Bacterial Infection Risk Factors: Negative - Allergy/Home Medications Allergies/Adverse Reactions: Allergies Allergy/AdvReac Type Severity Reaction Status Date / Time Opioids - Morphine Analogues Allergy Intermediate Vomiting Verified 11/14/18 07: 20 codeine Allergy Unknown Unknown Verified 11/14/18 06:51 Reaction Details Penicillins Allergy Unknown Unknown Verified 11/14/18 07:20 Reaction Details Home Medications: Home Medications Al Hydrox/Mg Hydrox/Simet LIQ* [Maalox Plus*] 30 ml PO Q6H PRN 11/14/18 [ History Confirmed 11/14/18] Albuterol HFA INHALER* [Ventolin HFA Inhaler*] 2 puff INH Q4H PRN 11/14/18 [ History Confirmed 11/14/18] Bisacodyl SUPP* [Dulcolax Supp*] 1 supp [place] DAILY PRN 11/14/18 [History Confirmed 11/14/18] Capsaicin 0.025% CREAM* [Zostrix 0.025% CREAM*] 1 applic TOPICAL TID 11/14/18 [ History Confirmed 11/14/18] DULoxetine CAP* [Cymbalta CAP*] 30 mg PO DAILY 11/14/18 [History Confirmed ] Estradiol VAG CM (NF) [Estrace VAG CM (NF)] 1 dose VAGINAL QPM 11/14/18 [ History Confirmed 11/14/18] Levothyroxine TAB* [Synthroid 88 MCG TAB*] 88 mcg PO DAILY 11/14/18 [History Confirmed 11/14/18] Lidocaine [Aspercreme] 1 patch TOPICAL DAILY 11/14/18 [History Confirmed ] Magnesium Hydroxide [Milk of Magnesia] 30 ml PO DAILY PRN 11/14/18 [History Confirmed 11/14/18] Methocarbamol TAB* [Robaxin 500 MG TAB*] 500 mg PO Q12H PRN 11/14/18 [History Confirmed 11/14/18] Quetiapine Fumarate [Seroquel 50 mg tab] 50 mg PO BEDTIME 11/14/18 [History Confirmed 11/14/18] Sennosides [Senokot] 1 tab PO DAILY 11/14/18 [History Confirmed 11/14/18] Simethicone [Gas Relief] 1 tab PO Q6H PRN 11/14/18 [History Confirmed 11/14/18] PMH/Surg Hx/FS Hx/Imm Hx Previously Healthy: Yes Endocrine/Hematology History: Reports: Hx Thyroid Disease Denies: Hx Diabetes Cardiovascular History: Reports: Hx Hypertension, Hx Valvular Heart Disease - mild , per pt , Other Cardiovascular Problems/Disorders - MILD AORTIC STENOSIS PER PT Respiratory History: Reports: Hx Asthma Denies: Hx Chronic Obstructive Pulmonary Disease (COPD) GI History: Denies: Hx Ulcer Musculoskeletal History: Reports: Hx Arthritis - KNEES Sensory History: Reports: Hx Cataracts - BILAT, Hx Contacts or Glasses - GLASSES Denies: Hx Hearing Aid Opthamlomology History: Reports: Hx Cataracts - BILAT, Hx Contacts or Glasses - GLASSES Neurological History: Reports: Hx Dementia Psychiatric History: Reports: Hx Anxiety - Surgical History Surgery Procedure, Year, and Place: THYROIDECTOMY, GALL BLADDER REMOVED, appendectomy, right knee replacement Hx Anesthesia Reactions: No - Immunization History Hx Pertussis Vaccination: No Immunizations Up to Date: Yes Infectious Disease History: No Infectious Disease History: Denies: Hx Clostridium Difficile, Hx Hepatitis, Hx Human Immunodeficiency Virus (HIV), Hx of Known/Suspected MRSA, Hx Shingles, Hx Tuberculosis, Hx Known/ Suspected VRE, Hx Known/Suspected VRSA, History Other Infectious Disease, Traveled Outside the [place] in Last 30 Days - Family History Known Family History: Positive: Cardiac Disease - CHF, Hypertension, Diabetes - Social History Occupation: Unemployed Lives: [facility] Alcohol Use: None Hx Substance Use: No Substance Use Type: Reports: None Hx Tobacco Use: No Smoking Status (MU): Never Smoked Tobacco Review of Systems Negative: Fever, Chills, Fatigue, Skin Diaphoresis Negative: Palpitations, Chest Pain Positive: Shortness Of Breath, Cough Genitourinary: Negative Positive: no symptoms reported, see HPI Negative: Arthralgia, Myalgia Neurological: Negative All Other Systems Reviewed And Are Negative: Yes Physical Exam Triage Information Reviewed: Yes Vital Signs On Initial Exam: Initial Vitals Pulse Resp Pulse Ox 84 30 96 11/14/18 06:42 11/14/18 06:42 11/14/18 06:42 Vital Signs Reviewed: Yes Appearance: Positive: Well-Appearing, Well-Nourished Skin: Positive: Warm, Skin Color Reflects Adequate Perfusion Head/Face: Positive: Normal Head/Face Inspection Eyes: Positive: EOMI, Conjunctiva Clear Neck: Positive: Supple Respiratory/Lung Sounds: Positive: Clear to Auscultation, Breath Sounds Present Cardiovascular: Positive: RRR, Pulses are Symmetrical in both Upper and Lower Extremities Musculoskeletal: Positive: Strength/ROM Intact Neurological: Positive: Speech Normal Psychiatric: Positive: Affect/Mood Appropriate Diagnostics - Vital Signs Vital Signs Temp Pulse Resp BP Pulse Ox 11/14/18 08:01 87 25 94 11/14/18 07:43 83 22 152/65 94 11/14/18 07:37 96 11/14/18 07:12 80 24 154/64 97 11/14/18 07:01 26 11/14/18 06:44 98.8 F 81 22 148/67 96 11/14/18 06:42 84 30 96 - Laboratory Lab Results: Lab Results 11/14/18 11/14/18 11/14/18 Range/Units 07:03 07:03 07:03 WBC 10.6 (3.5-10.8) 10^3/uL RBC 4.09 (3.70-4.87) 10^6 /uL Hgb 11.4 L (12.0-16.0) g/dL Hct 34 L (35-47) % MCV 82 (80-97) fL MCH 28 (27-31) pg MCHC 34 (31-36) g/dL RDW 17 H (10-15) % Plt Count 209 (150-450) 10^3/uL MPV 7.4 (7.4-10.4) fL Neut % (Auto) 84.7 % Lymph % (Auto) 5.7 % [place] % (Auto) 8.3 % Eos % (Auto) 0.5 % Baso % (Auto) 0.8 % Absolute Neuts (auto) 9.0 H (1.5-7.7) 10^3/ul Absolute Lymphs (auto) 0.6 L (1.0-4.8) 10^3/ul Absolute Monos (auto) 0.9 H (0-0.8) 10^3/ul Absolute Eos (auto) 0.1 (0-0.6) 10^3/ul Absolute Basos (auto) 0.1 (0-0.2) 10^3/ul Absolute Nucleated RBC 0.0 10^3/ul Nucleated RBC % 0.0 INR (Anticoag Therapy) (0.82-1.09) Sodium 134 L (135-145) mmol/L Potassium 3.9 (3.5-5.0) mmol/L Chloride 101 (101-111) mmol/L Carbon Dioxide 25 (22-32) mmol/L Anion Gap 8 (2-11) mmol/L BUN 22 (6-24) mg/dL Creatinine 0.45 L (0.51-0.95) mg/dL Est GFR ( Amer) 161.0 (>60) Est GFR (Non-Af Amer) 133.1 (>60) BUN/Creatinine Ratio 48.9 H (8-20) Glucose 113 H (70-100) mg/dL Lactic Acid 0.5 (0.5-2.0) mmol/L Calcium 8.9 (8.6-10.3) mg/dL Total Bilirubin 0.70 (0.2-1.0) mg/dL AST 11 L (13-39) U/L ALT 6 L (7-52) U/L Alkaline Phosphatase 58 (34-104) U/L Troponin I 0.01 (<0.04) ng/mL C-Reactive Protein 115.95 H (<8.01) mg/L B-Natriuretic Peptide (<=100) pg/mL Total Protein 6.8 (6.4-8.9) g/dL Albumin 3.7 (3.2-5.2) g/dL Globulin 3.1 (2-4) g/dL Albumin/Globulin Ratio 1.2 (1-3) 11/14/18 11/14/18 Range/Units 07:03 07:03 WBC (3.5-10.8) 10^3/uL RBC (3.70-4.87) 10^6 /uL Hgb (12.0-16.0) g/dL Hct (35-47) % MCV (80-97) fL MCH (27-31) pg MCHC (31-36) g/dL RDW (10-15) % Plt Count (150-450) 10^3/uL MPV (7.4-10.4) fL Neut % (Auto) % Lymph % (Auto) % [place] % (Auto) % Eos % (Auto) % Baso % (Auto) % Absolute Neuts (auto) (1.5-7.7) 10^3/ul Absolute Lymphs (auto) (1.0-4.8) 10^3/ul Absolute Monos (auto) (0-0.8) 10^3/ul Absolute Eos (auto) (0-0.6) 10^3/ul Absolute Basos (auto) (0-0.2) 10^3/ul Absolute Nucleated RBC 10^3/ul Nucleated RBC % INR (Anticoag Therapy) 1.21 H (0.82-1.09) Sodium (135-145) mmol/L Potassium (3.5-5.0) mmol/L Chloride (101-111) mmol/L Carbon Dioxide (22-32) mmol/L Anion Gap (2-11) mmol/L BUN (6-24) mg/dL Creatinine (0.51-0.95) mg/dL Est GFR ( Amer) (>60) Est GFR (Non-Af Amer) (>60) BUN/Creatinine Ratio (8-20) Glucose (70-100) mg/dL Lactic Acid (0.5-2.0) mmol/L Calcium (8.6-10.3) mg/dL Total Bilirubin (0.2-1.0) mg/dL AST (13-39) U/L ALT (7-52) U/L Alkaline Phosphatase (34-104) U/L Troponin I (<0.04) ng/mL C-Reactive Protein (<8.01) mg/L B-Natriuretic Peptide 300 H (<=100) pg/mL Total Protein (6.4-8.9) g/dL Albumin (3.2-5.2) g/dL Globulin (2-4) g/dL Albumin/Globulin Ratio (1-3) Result Diagrams: 11/14/18 07:03 11/14/18 07:03 Lab Statement: Any lab studies that have been ordered have been reviewed, and results considered in the medical decision making process. Course/Dx - Course Course Of Treatment: Patient evaluated for worsening SOB and cough x 2 days. Severely rhonchorous throughout with no wheezing. BNP 300. CXR shows R infiltrate. Levaquin 750mg given to cover PNA. Patient improved and currently denies any SOB following O2 delivery. Hx includes dementia, wheelchair bound ( unknown reason) other than recent multiple falls. Dr. Hodges primary. - Febrile Illness Differential Diagnoses: Pneumonia - Diagnoses Provider Diagnoses: Pneumonia Discharge - Sign-Out/Discharge Documenting (check all that apply): Patient Departure Patient Received Moderate/Deep Sedation with Procedure: No - Discharge Plan Condition: Fair Disposition: ADMITTED TO [facility] Referrals: Ronda COOPER ANIMAL CARE TAKER,Gertrude [Primary Care Provider] - - Billing Disposition and Condition Condition: FAIR Disposition: Admitted to [facility]
[2018-11-14] MEDS ORDERED: Albuterol/Ipratropium NEB.SOL* Albuterol 2.5 MG/Ipratropium 0.5 MG 3 ML INH PRN (09:59)
[2018-11-14] MEDS ORDERED: Acetaminophen TAB* 325 MG PO PRN (09:59)
[2018-11-14] MEDS ORDERED: Albuterol/Ipratropium NEB.SOL* Albuterol 2.5 MG/Ipratropium 0.5 MG 3 ML INH ONE (10:03)
[2018-11-14] MEDS ORDERED: Al Hydrox/Mg Hydrox/Simet LIQ* 30 ML UDC PO PRN (10:21)
[2018-11-14] MEDS ORDERED: Bisacodyl SUPP* 10 MG SUPP PR PRN (10:21)
[2018-11-14] MEDS ORDERED: Albuterol HFA INHALER* 8 gm MDI INH PRN (10:21)
[2018-11-14] MEDS ORDERED: Simethicone TAB* 80 MG TAB.CHEW PO PRN (10:21)
[2018-11-14] MEDS ORDERED: Ondansetron TAB* 4 MG PO PRN (10:21)
[2018-11-14] MEDS ORDERED: ACETAMINOPHEN 650 MG PO PRN (10:21)
[2018-11-14] MEDS ORDERED: Magnesium Hydroxide LIQ* 30 ML UDC PO PRN (10:21)
[2018-11-14] MEDS ORDERED: cefTRIAXone(*) 1 GM in NS 0.9% 50 ML* 50 ML IVPB SCH (11:00)
[2018-11-14] MEDS ORDERED: cefTRIAXone(*) 1 GM in NS 0.9% 50 ML* 50 ML IVPB ONE (11:00)
[2018-11-14 11:42] LABS: Urine Appearance Cloudy; Urine Bacteria Absent (Absent); Urine Bilirubin Negative (Negative); Urine Blood Negative (Negative); Urine Color Amber; Urine Glucose Negative (Negative); Urine Ketones Negative (Negative); Urine Nitrite Negative (Negative); Urine Protein 1+(30 mg/dL) (Negative); Urine Red Blood Cell 1+(3-5/hpf) (Absent); Urine Specific Gravity 1.027 (1.010-1.030); Urine Urobilinogen Negative (Negative); Urine White Blood Cell Trace(0-5/hpf) (Absent)
[2018-11-14] MEDS: Enoxaparin(*) 40 MG/0.4 ML SYR SUBCUT SCH (12:35)
--- NOTE | 2018-11-14 13:56 | HP ---
CC: Gertrude Bond NP; Dr. Tori Hodges * HISTORY AND PHYSICAL: DATE OF ADMISSION: 11/14/18 PRIMARY CARE PROVIDER: Gertrude Bond NP. OTHER PROVIDER: Dr. Tori Hodges, [facility]. ATTENDING PHYSICIAN: Dr. Giovanna Chamberlain * (dictated by CHRISSY Adamson) CHIEF COMPLAINT: Cough. HISTORY OF PRESENT ILLNESS: Ms. Lamar is an 83-year-old female with a past medical history of dementia, personality disorder, aortic stenosis, hypertension , asthma, who is a poor historian. She presented to the ER from [facility] due to increasing confusion and cough. It is noted in her chart that she has had a recent URI and she has not felt well since. The plan was to begin her on azithromycin, but this was not yet started. She is here today with cough. She is unable to give an estimate of the length or time of her cough. She notes she has a "rattling" in her chest, again unsure how long she has had this. She admits to wheezing, productive cough with "milky colored" sputum and shortness of breath. She is currently requiring oxygen, which is not her baseline. She denies fevers, chills, confusion, although staff at [facility] report that the patient is more confused than usual. She denies chest pain, abdominal pain , vomiting or diarrhea. She admits to occasional nausea, which is chronic. She denies changes in urinary habits. She denies recent falls. In ER the patient received a full workup, which revealed an elevated an CRP of 115.95. She has O2 requirements due to shortness of breath. She is currently on 4 L of oxygen. ECG reveals normal sinus rhythm. Heart rate of 83, left bundle branch block, which is unchanged from 08/11/18. Chest x-ray shows right basilar infiltrate. The patient was given levofloxacin due to concern for pneumonia. Hospitalist team was asked to evaluate the patient for admission. PAST MEDICAL HISTORY: 1. Aortic stenosis. 2. Hypertension. 3. Asthma. 4. COPD. 5. Hypothyroidism. 6. History of left bundle branch block. 7. Fibromyalgia. 8. Osteoarthritis, bilateral knees. 9. Questionable history of AFib. 10. Dementia. 11. Personality disorder. 12. Anxiety. 13. Bilateral cataracts. PAST SURGICAL HISTORY: Thyroidectomy, cholecystectomy, appendectomy, right total knee arthroplasty. HOME MEDICATIONS: 1. Acetaminophen 650 mg p.o. q.4 hours p.r.n. pain, fever. 2. Maalox 30 mL p.o. q.6 hours p.r.n. dyspepsia. 3. Ventolin HFA 2 puffs inhalation q.4 hours p.r.n. shortness of breath. 4. Amlodipine besylate 5 mg p.o. daily. 5. Bisacodyl suppository 1 suppository per rectum daily p.r.n. constipation. 6. Zostrix 0.025% cream 1 application topically b.i.d. 7. Duloxetine 30 mg p.o. daily. 8. Estradiol vaginal cream 1 application vaginally q.p.m. 9. Levothyroxine 88 mcg p.o. daily. 10. Lidocaine 1 patch topically daily. 11. Milk of magnesium 30 mL p.o. daily p.r.n. constipation. 12. Methocarbamol 500 mg p.o. q.6 hours p.r.n. spasm. 13. Metoprolol tartrate 25 mg p.o., b.i.d. 14. Myrbetriq 25 mg p.o. daily. 15. Patanol 0.1% ophthalmic 1 drop to both eyes daily. 16. Ondansetron 4 mg p.o. q.4 hours p.r.n. nausea. 17. Polyethylene glycol 17 g p.o. daily. 18. Pregabalin 25 mg p.o. at bedtime. 19. Quetiapine fumarate 50 mg p.o. at bedtime. 20. Senna tab 1 tab p.o. daily. 21. Sennosides 1 tab p.o. daily. 22. Simethicone 1 tab p.o. q.6 hours p.r.n. dyspepsia. 23. Tramadol 50 mg p.o. daily. DRUG ALLERGIES: OPIOIDS, CODEINE, and PENICILLIN. FAMILY HISTORY: The patient is unable to give adequate family history. SOCIAL HISTORY: She does not smoke or drink. She currently resides at [facility]. REVIEW OF SYSTEMS: A 10-point review of systems has been performed and all the pertinent positives and negatives are in the HPI, all other systems are negative. PHYSICAL EXAMINATION GENERAL: Ms. Lamar is a well-developed well nourished, older white woman who is sitting up in bed. She is obese. She is pleasantly confused and often tangential, unable to reliably answer questions. She has audible stridor from across the room. She has some increased work of breathing, but is not currently in respiratory distress. VITAL SIGNS: Temperature 98.8 temporal, heart rate 94, respiratory rate 32, oxygen saturation 100% on 2L of O2. Blood pressure 159/68. HEENT: PERRL. Nonicteric sclerae. Hearing grossly intact. Oral mucous membranes are dry. There are no lesions. Pharynx is clear. CARDIOVASCULAR: Regular rate and rhythm with S1 and S2 present. There is a harsh systolic murmur. There is no rubs or gallops. No JVD. No lower extremity edema. Radial and pedal pulses are palpable. RESPIRATORY: Symmetrical chest expansion, slight increase in work of breathing. There are wheezes present throughout bilateral lungs, crackles at bilateral bases. There is no digital clubbing or cyanosis. ABDOMEN: Obese. Bowel sounds noted in all quadrants. The abdomen is soft and there is mild tenderness to palpation. MUSCULOSKELETAL: The patient has chronic arthritic changes noted on bilateral hands, bilateral feet with foot and toe disfigurement, right greater than left. NEURO: The patient is awake. She is alert. She is oriented to self. She is not oriented to place, but is easily redirected and able to relate where she is. Later in the conversation, she is unsure of the date. DIAGNOSTIC STUDIES/LABORATORY DATA: HGB 11.4, HCT 34. Sodium 134, creatinine 0.45, BUN 48.9, glucose 113, lactic acid 0.5, CRP 115/95, BNP 300. ASSESSMENT AND PLAN: Ms. Lamar is an 83-year-old female with a past medical history of hypertension, COPD, asthma, aortic stenosis, who presented to the ER today from [facility] with complaints of productive cough, shortness of breath , wheeze and was found to have right basilar infiltrate on chest x-ray. The patient will be admitted inpatient for, 1. Right basilar infiltrate. The patient is likely to have pneumonia. She is a poor historian and there is some concern that there may be aspiration. She received a dose of levofloxacin in the ER. She will transitioned to ceftriaxone 1 g IV daily. Clindamycin has been added for anaerobic coverage. Speech eval has been ordered. If this is within normal limits, it would be reasonable to discontinue clindamycin. Urine for legionella and strep has been ordered, DuoNeb q.4 hours while awake ordered due to wheezing. 2. Aortic stenosis. The patient has a history of aortic stenosis. No recent echo is seen, but it is noted that she was transferred to [place] in April due to failure to thrive, critical aortic stenosis and left hip osteoarthritis. Records have been requested from [place] to get further details. 3. Hypertension. Continue home medications, amlodipine, metoprolol. 4. Hypothyroidism. Continue levothyroxine . 5. Chronic obstructive pulmonary disease, asthma. Continue home inhaler. We will also add DuoNeb q.4 hours while awake. 6. Psychiatric. Patient has history of personality disorder, anxiety. She will continue her home medications, duloxetine and Seroquel. 7. Fibromyalgia. Continue home medications, pregabalin and tramadol. 8. History of left bundle branch block. Noted on today's EKG. No change from EKG from 08/11/18. 9. FEN. The patient has been placed on heart healthy diet. 10. DVT prophylaxis. According to the DVT Risk Assessment, the patient scores 3, placing her at high risk. She will be started on Lovenox. 11. Code status. Full code. TIME SPENT: Approximately 60 minutes was spent on this admission, approximately half that time was spent with the patient and in chart in review, obtaining history, performing physical, and reviewing the plan of care. The case has been reviewed with my attending, Dr. Chamberlain, who is agreement with the plan of care. CHRISSY QUIÑONEZ [id number]/[facility] #: [id number] INÉS
[2018-11-14] MEDS: Capsaicin 0.025% CREAM* 60 GM TOPICAL SCH ×2 (14:34→22:33)
[2018-11-14] MEDS: Clindamycin CAP* 150 MG PO SCH ×3 (14:34→23:37)
[2018-11-14] MEDS: NF: Estradiol VAG CM (NF) 1 APPLIC TUBE VAGINAL SCH (17:10)
[2018-11-14] MEDS: Pregabalin CAP(*) 25 MG PO SCH (20:43)
[2018-11-14] MEDS: QUEtiapine TAB* 25 MG PO SCH (20:43)
[2018-11-14] MEDS: Metoprolol Tartrate TAB* 25 MG PO SCH (20:43)
[2018-11-15 05:54] LABS: ABS Eosinophils 0.1 10^3/ul (0-0.6); ABS Monocytes 0.7 10^3/ul (0-0.8); ABS Neutrophils 6.7 10^3/ul (1.5-7.7); Eosinophil % 1.2 %; Hematocrit 31 % (35-47); Hemoglobin 10.3 g/dL (12.0-16.0); Lymphocyte % 12.1 %; Mean Corpuscular HGB Conc 34 g/dL (31-36); Mean Corpuscular Hemoglobin 28 pg (27-31); Mean Corpuscular Volume 82 fL (80-97); Mean Platelet Volume 7.9 fL (7.4-10.4); Nucleated Red Blood Cells % 0.1; Platelet Count 199 10^3/uL (150-450); Red Cell Distribution Width 17 % (10-15); White Blood Count 8.6 10^3/uL (3.5-10.8)
[2018-11-15 06:09] LABS: BUN/Creatinine Ratio 39.1 (8-20); Calcium 8.6 mg/dL (8.6-10.3); EGFR Non-African American 129.7 (>60); Potassium 3.8 mmol/L (3.5-5.0)
[2018-11-15 06:24] LABS: TSH (Thyroid Stimulating Horm) 1.75 mcIU/mL (0.34-5.60)
[2018-11-15] MEDS: Clindamycin CAP* 150 MG PO SCH ×2 (07:36→11:59)
[2018-11-15] MEDS: Levothyroxine TAB* 88 MCG TAB PO SCH (07:36)
[2018-11-15] MEDS: LIDOCAINE TOPICAL SCH ×2 (09:00→09:43)
[2018-11-15] MEDS ORDERED: SENNOSIDES PO SCH (09:00)
[2018-11-15] MEDS: DULoxetine DR CAP* 30 MG CAP.DR PO SCH (09:42)
[2018-11-15] MEDS: traMADol TAB* 50 MG PO SCH (09:42)
[2018-11-15] MEDS: Metoprolol Tartrate TAB* 25 MG PO SCH ×2 (09:43→20:05)
[2018-11-15] MEDS: amLODIPine TAB* 5 MG PO SCH (09:43)
[2018-11-15] MEDS: NF:Mirabegron (NF) 25 MG TAB PO SCH (09:44)
[2018-11-15] MEDS: Polyethylene Glycol 3350* 17 GM PACKET PO SCH (09:44)
[2018-11-15] MEDS: Senna TAB PO SCH (09:44)
[2018-11-15] MEDS: Enoxaparin(*) 40 MG/0.4 ML SYR SUBCUT SCH (09:45)
[2018-11-15] MEDS: NF:Olopatadine 0.1% OPHTH (NF) 1 DROP BTL BOTH EYES SCH (11:11)
[2018-11-15] MEDS: Capsaicin 0.025% CREAM* 60 GM TOPICAL SCH ×3 (11:11→20:04)
[2018-11-15] MEDS: cefTRIAXone(*) 1 GM in NS 0.9% 50 ML* 50 ML IVPB SCH (11:19)
--- NOTE | 2018-11-15 13:03 | PN ---
Subjective Date of Service: 11/15/18 Interval History: Patient is still feeling SOB. Patient has significant cough with intermittent sputum production. Patient has intermittent F/C, and N/V which respond to medication. Patient denies diarrhea, CP, dizziness or wheezing. [facility]. Family History: Unchanged from Admission Social History: Unchanged from Admission Past Medical History: Unchanged from Admission Objective Active Medications: Acetaminophen (Tylenol Tab*) 650 mg PO Q4H PRN PRN Reason: FEVER/PAIN Al Hydrox/Mg Hydrox/Simethicone (Maalox Plus*) 30 ml PO Q6H PRN PRN Reason: DYSPEPSIA Albuterol (Ventolin Hfa Inhaler*) 2 puff INH Q4H PRN PRN Reason: SHORTNESS OF BREATH Albuterol/Ipratropium (Duoneb (Albuterol 2.5 Mg/Ipratropium 0.5 Mg)) 1 neb INH RT.[id number] AWAKE PRN PRN Reason: sob/wheexing Amlodipine Besylate (Norvasc Tab*) 5 mg PO DAILY [facility] Last Admin: 11/15/18 09:43 Dose: 5 mg Bisacodyl (Dulcolax Supp*) 10 mg PA DAILY PRN PRN Reason: CONSTIPATION Capsaicin (Zostrix 0.025% Cream*) 1 applic TOPICAL TID [facility] Last Admin: 11/15/18 11:11 Dose: 1 applic Clindamycin HCl (Cleocin Cap*) 150 mg PO Q6HR [facility] Last Admin: 11/15/18 11:59 Dose: 150 mg Duloxetine HCl (Cymbalta Cap*) 30 mg PO DAILY [facility] Last Admin: 11/15/18 09:42 Dose: 30 mg Enoxaparin Sodium (Lovenox(*)) 40 mg SUBCUT Q24H [facility] Last Admin: 11/15/18 09:45 Dose: 40 mg Estradiol (Estrace Vag Cm (Nf)) 1 applic VAGINAL QPM [facility] Last Admin: 11/14/18 17:10 Dose: Not Given Ceftriaxone Sodium 1 gm/ (Sodium Chloride) 50 mls @ 100 mls/hr IVPB 1100 [facility] Last Admin: 11/15/18 11:19 Dose: 100 mls/hr Levothyroxine Sodium (Synthroid Tab*) 88 mcg PO 0600 [facility] Last Admin: 11/15/18 07:36 Dose: 88 mcg Magnesium Hydroxide (Milk Of Magnesia Liq*) 30 ml PO DAILY PRN PRN Reason: CONSTIPATION Metoprolol Tartrate (Lopressor Tab*) 25 mg PO BID [facility] Last Admin: 11/15/18 09:43 Dose: 25 mg Mirabegron (Myrbetriq (Nf)) 25 mg PO DAILY [facility] Last Admin: 11/15/18 09:44 Dose: Not Given Nf:Lidocaine [ (Aspercreme] 1 Patch)) 1 patch TOPICAL DAILY [facility] Last Admin: 11/15/18 09:43 Dose: Not Given Olopatadine HCl (Patanol 0.1% Ophth (Nf)) 1 drop BOTH EYES DAILY [facility]; Protocol Last Admin: 11/15/18 11:11 Dose: Not Given Ondansetron HCl (Zofran Tab*) 4 mg PO Q4H PRN PRN Reason: NAUSEA Last Admin: 11/15/18 11:58 Dose: 4 mg Polyethylene Glycol/Electrolytes (Miralax*) 17 gm PO DAILY [facility] Last Admin: 11/15/18 09:44 Dose: Not Given Pregabalin (Lyrica Cap(*)) 25 mg PO BEDTIME [facility] Last Admin: 11/14/18 20:43 Dose: 25 mg Quetiapine Fumarate (Seroquel Tab*) 50 mg PO BEDTIME [facility] Last Admin: 11/14/18 20:43 Dose: 50 mg Senna (Senokot Tab*) 1 tab PO DAILY [facility] Last Admin: 11/15/18 09:44 Dose: Not Given Simethicone (Mylicon Tab*) 80 mg PO Q6H PRN PRN Reason: DYSPEPSIA Tramadol HCl (Ultram*) 50 mg PO DAILY [facility] Last Admin: 11/15/18 09:42 Dose: 50 mg Vital Signs - 8 hr 11/15/18 11/15/18 11/15/18 07:15 09:42 11:15 Temperature 97.5 F 98.1 F Pulse Rate 76 66 Respiratory 16 17 20 Rate Blood Pressure 143/54 137/55 (mmHg) O2 Sat by Pulse 95 99 Oximetry 11/15/18 11:59 Temperature Pulse Rate Respiratory 18 Rate Blood Pressure (mmHg) O2 Sat by Pulse Oximetry Oxygen Devices in Use Now: None Appearance: Patient is an 83yo female who appears stated age and is sitting in the bed in NAD. Eyes: No Scleral Icterus, PERRLA Ears/Nose/Mouth/Throat: NL Teeth, Lips, Gums, Clear Oropharnyx, Mucous Membranes Moist Neck: NL Appearance and Movements; NL JVP, Trachea Midline Respiratory: Symmetrical Chest Expansion and Respiratory Effort, Clear to Auscultation Cardiovascular: NL Sounds; No Murmurs; No JVD, RRR, No Edema Abdominal: NL Sounds; No Tenderness; No Distention, No Hepatosplenomegaly Lymphatic: No Cervical Adenopathy Extremities: No Edema, No Clubbing, Cyanosis Skin: No Rash or Ulcers, No Nodules or Sclerosis Neurological: Alert and Oriented x 3, NL Sensation, NL Muscle Strength and Tone , - - CN II-XII Result Diagrams: 11/15/18 05:11 11/15/18 05:11 Additional Lab and Data: Lab Results Microbiology and Other Data: Microbiology 11/14/18 11:24 Urine Culture - Final Urine No Growth (<1,000 CFU/mL) 11/14/18 07:08 Aerobic Blood Culture - Preliminary Blood Venous No Growth Day 1 Anaerobic Blood Culture - Preliminary No Growth Day 1 11/14/18 07:03 Aerobic Blood Culture - Preliminary Blood Venous No Growth Day 1 Anaerobic Blood Culture - Preliminary No Growth Day 1 11/14/18 11:24 Legionella Urinary Antigen - Final Urine Negative Legionella Antigen Streptococcus pneumoniae Ag Screen - Final Negative S. pneumo Antigen Assess/Plan/Problems-Billing Assessment: Patient is an 83yo female with a PMH for Borderline Personality disorder, Advanced OA, and Advanced who is admitted to the hospital for pneumonia and is improving on IV antibiotics and supportive care. - Patient Problems (1) Pneumonia Current Visit: Yes Status: Acute Code(s): J18.9 - PNEUMONIA, UNSPECIFIED ORGANISM SNOMED Code(s): 538973642 Comment: - Community Acquired - Responding to IV antibiotics, Ceftriaxone and Azithromycin - Start Pulmonary Toilet - Able to be weaned off O2. (2) COPD (chronic obstructive pulmonary disease) Current Visit: Yes Status: Acute Code(s): J44.9 - CHRONIC OBSTRUCTIVE PULMONARY DISEASE, UNSPECIFIED SNOMED Code(s): 39325235 Comment: - Moderate exacerbation from Pneumonia - Continue scheduled inhalers - Improving, no longer hypoxic (3) Aortic stenosis Current Visit: Yes Status: Acute Code(s): I35.0 - NONRHEUMATIC AORTIC (VALVE ) STENOSIS SNOMED Code(s): 58051437 Comment: - Previously severe - Not symptomatic - Monitor fluid status - Not in HF (4) Osteoarthritis Current Visit: Yes Status: Acute Code(s): M19.90 - UNSPECIFIED OSTEOARTHRITIS, UNSPECIFIED SITE SNOMED Code(s): 926786443 Comment: - Continue outpatient PT/OT and F/U Orthopedists (5) Anxiety Current Visit: Yes Status: Acute Code(s): F41.9 - ANXIETY DISORDER, UNSPECIFIED SNOMED Code(s): 57212133 Comment: - Very anxious and confrontational - Continue home treatments. (6) HTN (hypertension) Current Visit: Yes Status: Acute Code(s): I10 - ESSENTIAL (PRIMARY) HYPERTENSION SNOMED Code(s): 88086366 Comment: - Continue Amlodipine and Metoprolol - Normotensive (7) Full code status Current Visit: Yes Status: Acute Code(s): Z78.9 - OTHER SPECIFIED HEALTH STATUS SNOMED Code(s): 727935038 (8) DVT prophylaxis Current Visit: Yes Status: Acute Code(s): Z29.9 - ENCOUNTER FOR PROPHYLACTIC MEASURES, UNSPECIFIED SNOMED Code(s): 319747217 Comment: - Lovenox SubQ Status and Disposition: Inpatient for Pneumonia
[2018-11-15] MEDS: NF: Estradiol VAG CM (NF) 1 APPLIC TUBE VAGINAL SCH (16:49)
[2018-11-15] MEDS: guaiFENesin ER TAB 600 MG PO SCH (20:04)
[2018-11-15] MEDS: Pregabalin CAP(*) 25 MG PO SCH (20:05)
[2018-11-15] MEDS: QUEtiapine TAB* 25 MG PO SCH (20:05)
[2018-11-16] MEDS: Levothyroxine TAB* 88 MCG TAB PO SCH (05:27)
[2018-11-16 07:14] LABS: ABS Eosinophils 0.2 10^3/ul (0-0.6); ABS Lymphocytes 1.1 10^3/ul (1.0-4.8); ABS Monocytes 0.5 10^3/ul (0-0.8); ABS Neutrophils 3.8 10^3/ul (1.5-7.7); Eosinophil % 4.1 %; Hematocrit 31 % (35-47); Hemoglobin 10.5 g/dL (12.0-16.0); Mean Corpuscular HGB Conc 33 g/dL (31-36); Mean Corpuscular Hemoglobin 28 pg (27-31); Mean Corpuscular Volume 83 fL (80-97); Nucleated Red Blood Cells % 0.1; Platelet Count 214 10^3/uL (150-450); Red Blood Count 3.79 10^6 /uL (3.70-4.87); Red Cell Distribution Width 17 % (10-15); White Blood Count 5.6 10^3/uL (3.5-10.8)
[2018-11-16 07:45] LABS: Calcium 8.8 mg/dL (8.6-10.3); EGFR African American 142.6 (>60); EGFR Non-African American 117.8 (>60); Magnesium 2.1 mg/dL (1.9-2.7); Potassium 3.8 mmol/L (3.5-5.0)
[2018-11-16] MEDS ORDERED: Azithromycin TAB* 250 MG PO SCH (09:00)
[2018-11-16] MEDS: traMADol TAB* 50 MG PO SCH (09:25)
[2018-11-16] MEDS: amLODIPine TAB* 5 MG PO SCH (09:25)
[2018-11-16] MEDS: Metoprolol Tartrate TAB* 25 MG PO SCH (09:25)
[2018-11-16] MEDS: DULoxetine DR CAP* 30 MG CAP.DR PO SCH (09:26)
[2018-11-16] MEDS: Capsaicin 0.025% CREAM* 60 GM TOPICAL SCH (09:26)
[2018-11-16] MEDS: LIDOCAINE TOPICAL SCH (09:26)
[2018-11-16] MEDS: guaiFENesin ER TAB 600 MG PO SCH (09:26)
[2018-11-16] MEDS: Senna TAB PO SCH (09:27)
[2018-11-16] MEDS: Enoxaparin(*) 40 MG/0.4 ML SYR SUBCUT SCH (09:27)
[2018-11-16] MEDS: Polyethylene Glycol 3350* 17 GM PACKET PO SCH (09:27)
[2018-11-16] MEDS: NF:Mirabegron (NF) 25 MG TAB PO SCH (09:27)
[2018-11-16] MEDS: NF:Olopatadine 0.1% OPHTH (NF) 1 DROP BTL BOTH EYES SCH (09:27)
[2018-11-16] MEDS: cefTRIAXone(*) 1 GM in NS 0.9% 50 ML* 50 ML IVPB SCH (11:05)
--- NOTE | 2018-11-16 11:14 | DS ---
CC: Dr. Tori Hodges * DISCHARGE SUMMARY: DATE OF ADMISSION: 11/14/18 DATE OF DISCHARGE: 11/16/18 PRIMARY CARE PROVIDER: Dr. Tori Hodges at [facility]. MY ATTENDING WHILE IN THE HOSPITAL: Dr. Purvi Fregoso.* (DICTATED BY CHRISSY HAMM) PRIMARY DISCHARGE DIAGNOSES: 1. Community-acquired pneumonia. 2. Mild chronic obstructive pulmonary disease exacerbation. SECONDARY DISCHARGE DIAGNOSES: 1. Aortic stenosis. 2. Hypertension. 3. Asthma. 4. Hypothyroidism. 5. Left bundle-branch block. 6. Fibromyalgia. 7. Osteoarthritis. 8. Dementia. 9. Personality disorder. 10. Anxiety. 11. Possible history of atrial fibrillation. 12. Cataracts. STUDIES DONE WHILE IN THE HOSPITAL: Chest x-ray from 11/14/18 read as right basilar infiltrate. Electrocardiogram from 11/14/18 read as left bundle-branch block, normal sinus rhythm, rate of 83, QTc of 499, no significant ST-segment elevation or depression. No significant changes from previous exam. MEDICATIONS AT DISCHARGE: 1. Amlodipine 5 mg p.o. daily. 2. Metoprolol tartrate 25 mg p.o. b.i.d. 3. Tylenol 650 mg p.o. q.4 hours as needed. 4. Zofran 4 mg p.o. q.4 hours as needed. 5. Senna 1 tab p.o. daily. 6. Pregabalin 25 mg p.o. at bedtime. 7. Patanol 1 drop both eyes daily. 8. Myrbetriq 25 mg p.o. daily. 9. Tramadol 50 mg p.o. daily. 10. MiraLAX 17 g p.o. daily. 11. Albuterol inhaler 2 puffs inhalation q.4 hours as needed. 12. Robaxin 500 mg p.o. q.12 hours as needed. 13. Milk of magnesia 30 mL p.o. daily as needed. 14. Simethicone 1 tab p.o. q.6 hours as needed. 15. Maalox 30 mL p.o. q.6 hours as needed. 16. Dulcolax 1 suppository per rectum daily as needed. 17. Sennosides 1 tab p.o. daily. 18. Quetiapine 50 mg p.o. at bedtime. 19. Synthroid 88 mcg p.o. daily. 20. Duloxetine 30 mg p.o. daily. 21. Lidocaine 1 patch topical daily. 22. Estradiol 1 dose vaginal daily. 23. Capsaicin 1 application topical t.i.d. 24. DuoNeb 1 nebulizer q.4 hours as needed. 25. Azithromycin 250 mg p.o. daily x3. 26. Cefuroxime 500 mg p.o. b.i.d. x14. 27. Guaifenesin 200 mg p.o. b.i.d. New medications at discharge: 1. DuoNeb. 2. Azithromycin. 3. Cefuroxime. 4. Mucinex. Medications discontinued at discharge: None. HOSPITAL COURSE: This is a brief summary of the patient's presentation. For more details, please see history and physical from 11/14/18 by CHRISSY Adamson, with past medical history significant for the above, who presented to the emergency department after being sent from [facility] with shortness of breath, wheezing, and productive cough as well as new hypoxia. The patient was admitted to the hospital, started on ceftriaxone and azithromycin. The patient did have a URI recently and had a dull thickening phenomenon. The patient had a chest x-ray showing right basilar infiltrate. The patient received levofloxacin in the emergency department. The patient improved on first day of her admission being able to be weaned initially down on her oxygen to 2 L and then off the evening of 11/15/18. The patient had no fevers, no tachycardia, no hypotension. The patient, as per her previous baseline, was very agitated while in the hospital and was constantly yelling and screaming for help despite not having complaints justifying this behavior. The patient on the morning of 11/16/18 was not needing oxygen and was able to scream into the hallway for approximately 3 minutes straight without getting short of breath. The patient was stable and amenable for discharge back to [facility] on 11/16/18. PHYSICAL EXAMINATION ON DISCHARGE: General: The patient is an 83-year-old female who appears the stated age and sitting comfortably in bed, in no acute distress. Vital Signs: At the time of evaluation, temperature 97.6, pulse rate of 70, respiratory rate 18, oxygen saturation 95% on room air, and blood pressure 146/44. HEENT: Head normocephalic and atraumatic. Sclerae anicteric. No conjunctival injection. Nasal mucosa moist. Oral mucosa moist. No pharyngeal erythema, discharge, or exudate. Neck: Supple and nontender. No lymphadenopathy. No carotid bruit auscultated. No JVD. Cardiac: Regular rate and rhythm. Grade 3/6 systolic ejection murmur heard best at the right upper sternal border. Respiratory: Slight expiratory wheezing heard throughout , significant improvement from previous exam. Rhonchi in the bases. Abdomen: Soft, nontender, and nondistended. Bowel sounds present and normoactive in all 4 quadrants. No hepatosplenomegaly. No abdominal bruits auscultated. No hepatojugular reflux. Genitourinary: No suprapubic or CVA tenderness. Skin: Clear and intact. No rashes. Neuro: Cranial nerves II through XII intact. Alert and oriented x3. Psychiatric: Agitated, screaming frequently, but calms down after a minor amount of time in the room. DISCHARGE PLAN: The patient will be discharged back to [facility]. The patient will continue on 7 more days of Ceftin and 3 more days of azithromycin. The patient has a slight COPD exacerbation from her pneumonia. The patient was not started on steroids in the hospital and is improving. It is likely that once she completes treatment for her pneumonia, her COPD exacerbation will be treated as well. Caution will be used with steroids due to the concern for exacerbating the patient's behavioral concerns, which are danger to herself and others. The patient should continue to be considered for outpatient aortic valve replacement as well as possible knee replacement both of which were previously considered, but were put on hold due to her poor rehab potential. The patient should continue with PT and OT to support her per goal of being able to go home independently. The patient should have heart healthy diet without caffeine, engage in activity as tolerated. The patient should have her home inhalers and then DuoNebs as needed every 4 hours as above. The patient should be considered for ongoing physical therapy as well to help improve her functional status if she has persistent symptoms after her pneumonia subsided. TIME SPENT: Approximately 60 minutes was spent on this discharge of this patient, 30 of which was spent [id number] with the patient obtaining history and physical and discussing treatment plan. CHRISSY HAMM [id number]/[facility] #: [id number] INÉS
[2018-11-16] MEDS ORDERED: Diazepam INJ (NF) 5 MG/ML 10 ML VIAL (50 MG TOTAL) IV ONE (12:19)
[2018-11-16] MEDS ORDERED: Haloperidol INJ IV/IM* 5 MG/ML AMP IV SLOW PU ONE (12:28)
[2018-11-16 13:18] VITALS: BP 120/56
== END 2018-11-16 13:00 | DRG 190 ==
LOC: ED 06:37 → MED 09:59
PROVIDERS: ADMIT Internal Medicine; ATTEND Internal Medicine
DX: J44.0 Chronic obstructive pulmonary disease with (acute) lower respiratory infection (principal); J18.9 Pneumonia, unspecified organism; J44.1 Chronic obstructive pulmonary disease with (acute) exacerbation; I35.0 Nonrheumatic aortic (valve) stenosis; I10 Essential (primary) hypertension; E03.9 Hypothyroidism, unspecified; I44.7 Left bundle-branch block, unspecified; M79.7 Fibromyalgia; F03.90 Unspecified dementia, unspecified severity, without behavioral disturbance, psychotic disturbance, mood disturbance, and anxiety; F60.9 Personality disorder, unspecified; F41.9 Anxiety disorder, unspecified; I48.91 Unspecified atrial fibrillation; M17.0 Bilateral primary osteoarthritis of knee; M19.042 Primary osteoarthritis, left hand; M19.041 Primary osteoarthritis, right hand; Z79.1 Long term (current) use of non-steroidal anti-inflammatories (NSAID); Z79.899 Other long term (current) drug therapy; Z88.5 Allergy status to narcotic agent; Z88.0 Allergy status to penicillin
CPT/HCPCS: 36415; 71046; 80048; 80053; 81003; 81015; 83605; 83735; 83880; 84443; 84484; 85025; 85610; 86140; 87040; 87086; 87899; 93005; 99284; A9270-GY; J0696; J1630; J1650; J3360

== ENCOUNTER 2019-04-27 11:53 | Inpatient (IN) | payer MEDICARE ==
[2019-04-27] MEDS ORDERED: NS 0.9% 1000 ML** 1,000 ML IV ONE (11:56)
--- NOTE | 2019-04-27 12:04 | ED ---
Altered Mental Status - HPI Summary HPI Summary: This pt is a 84 y/o female, with hx of dementia, presenting to [facility]. EMS reports aide noticed pt was not acting right and seemed more pale than usual today. Per EMS pt was saturating in the high 80s on room air. EMS states pt is not usually on oxygen. Per EMS second blood pressure was 80/50 and the first one was hard to get. Patient is c/ o left leg pain and left abdominal pain. Pt states her pain began 30 minutes ago. Denies vomiting or diarrhea. Patient presents screaming and yelling. PMHx: dementia, ulcer on coccyx, COPD, HTN, borderline personality disorder, anxiety disorder, hyperthyroidism. Per EMS pt is full code and has no family locally. Medications reviewed. Allergies noted. - History Of Current Complaint Stated Complaint: CONFUSION PER EMS Time Seen by Provider: 04/27/19 11:54 Hx Obtained From: Patient, EMS Onset/Duration: Still Present Timing: Lasting Hours Severity Currently: Moderate Character: Confusion Aggravating Factor(s): Unknown Alleviating Factor(s): Unknown Associated Signs And Symptoms: Negative: Fever - Allergies/Home Medications Allergies/Adverse Reactions: Allergies Allergy/AdvReac Type Severity Reaction Status Date / Time Opioids - Morphine Analogues Allergy Intermediate Vomiting Verified 04/27/19 12: 02 codeine Allergy Unknown Unknown Verified 04/27/19 12:02 Reaction Details Penicillins Allergy Unknown Unknown Verified 04/27/19 12:02 Reaction Details PMH/Surg Hx/FS Hx/Imm Hx Endocrine/Hematology History: Reports: Hx Thyroid Disease Denies: Hx Diabetes Cardiovascular History: Reports: Hx Hypertension, Hx Valvular Heart Disease - mild , per pt , Other Cardiovascular Problems/Disorders - MILD AORTIC STENOSIS PER PT Respiratory History: Reports: Hx Asthma Denies: Hx Chronic Obstructive Pulmonary Disease (COPD) GI History: Denies: Hx Ulcer Musculoskeletal History: Reports: Hx Arthritis - KNEES Sensory History: Reports: Hx Cataracts - BILAT, Hx Contacts or Glasses Denies: Hx Hearing Aid Opthamlomology History: Reports: Hx Cataracts - BILAT, Hx Contacts or Glasses Neurological History: Reports: Hx Dementia Psychiatric History: Reports: Hx Anxiety, Other Psychiatric Issues/Disorders - Borderline personality disorder - Surgical History Surgery Procedure, Year, and Place: THYROIDECTOMY, GALL BLADDER REMOVED, appendectomy, right knee replacement Hx Anesthesia Reactions: No Infectious Disease History: Denies: Hx Clostridium Difficile, Hx Hepatitis, Hx Human Immunodeficiency Virus (HIV), Hx of Known/Suspected MRSA, Hx Shingles, Hx Tuberculosis, Hx Known/ Suspected VRE, Hx Known/Suspected VRSA, History Other Infectious Disease - Family History Known Family History: Positive: Cardiac Disease - CHF, Hypertension, Diabetes - Social History Alcohol Use: None Hx Substance Use: No Substance Use Type: Reports: None Hx Tobacco Use: No Smoking Status (MU): Never Smoked Tobacco Review of Systems Negative: Fever Positive: Abdominal Pain. Negative: Vomiting, Diarrhea Musculoskeletal: Other - POSITIVE: left leg pain Neurological: Other - POSITIVE: confusion All Other Systems Reviewed And Are Negative: Yes Physical Exam - Summary Physical Exam Summary: Constitutional: Well-developed, Well-nourished, Alert. Screaming but redirectable. Skin: Warm, Dry HENT: Normocephalic; Atraumatic. No external signs of trauma. Eyes: Conjunctiva normal Neck: Musculoskeletal ROM normal neck. (-) JVD, (-) Stridor, (-) Tracheal deviation Cardio: Rhythm regular, rate normal, Heart sounds normal; Intact distal pulses; The pedal pulses are 2+ and symmetric. Radial pulses are 2+ and symmetric. (-) Murmur Pulmonary/Chest wall: Effort normal. (-) Respiratory distress, (-) Wheezes, (-) Rales Abd: Soft, Tenderness in the left abdomen, (-) Distension, (-) Guarding, (-) Rebound Musculoskeletal: (-) Edema. Tenderness in the left leg. No external signs of trauma. Lymph: (-) Cervical adenopathy Neuro: Alert but not oriented, some garbled speech. Psych: Mood and affect Normal Triage Information Reviewed: Yes Vital Signs On Initial Exam: Initial Vitals Temp Pulse Resp BP Pulse Ox 98.8 F 113 21 147/70 90 04/27/19 11:57 04/27/19 11:57 04/27/19 11:57 04/27/19 11:57 04/27/19 11:57 Vital Signs Reviewed: Yes Procedures - Sedation Patient Received Moderate/Deep Sedation with Procedure: No Diagnostics - Laboratory Result Diagrams: 04/27/19 12:10 04/27/19 12:10 Lab Statement: Any lab studies that have been ordered have been reviewed, and results considered in the medical decision making process. - Radiology Chest XR Radiology Interpretation Completed By: Radiologist Summary of Radiographic Findings: IMPRESSION: Question of right upper lobe infiltrate. Dr. Durant has reviewed this report. - CT Brain CT CT Interpretation Completed By: Radiologist Summary of CT Findings: IMPRESSION: Atrophy. There is no evidence of intracranial mass or hemorrhage. Dr. Durant has reviewed this report. Abdomen/Pelvis CT CT Interpretation Completed By: Radiologist Summary of CT Findings: IMPRESSION: Periumbilical hernia containing fat although there is stranding noted. Incarceration of the periumbilical herniated fat is not totally excluded and clinical correlation is suggested. Otherwise no other masses or fluid collections are noted. There is a right renal cyst. Prominent extra and intrahepatic ducts likely due to postcholecystectomy state of the patient. There is likely a sacral decubitus ulcer noted with underlying edema and scant fluid noted just left of midline at the distal tip of the sacrum and coccyx. Small foci of air and fluid are noted presumably within the gluteus muscle. Dr. Durant has reviewed this report. - EKG 12:00 Cardiac Rate: Tachycardia - at 108 bpm EKG Rhythm: Sinus Tachycardia EKG Comparison: No Significant Change - unchanged from EKG on 11/14/18. Summary of EKG Findings: EKG at 1200 shows sinus tachycardia at a rate of 108 bpm. LBBB. Unchanged from EKG on 11/14/18. Re-Evaluation - Re-Evaluation First Eval Re-Evaluation Time: 14:15 Comment: ED nurse called [facility] and they report patient is not normally on oxygen. Altered Mental Statu Course/Dx - Course Course Of Treatment: Patient is here with worsening altered mental status. Patient has dementia at baseline. Upon arrival, patient is screaming but able to have a normal conversation. Patient is not oriented to place or situation. Patient only complaint was left lower quadrant pain. Patient had a CT brain and CT abdomen/pelvis which were both negative for any acute process. Patient had chest x-ray showed a right upper lobe pneumonia. Patient was 88% on room air which is new for her. Patient is admitted to the hospitalist for pneumonia and hypoxemia. - Diagnoses Provider Diagnoses: Right upper lobe pneumonia, Hypoxia, Altered mental status, Dementia - Provider Notifications Discussed Care Of Patient With: Mary Diaz - hospitalist Time Discussed With Above Provider: 14:32 Instructed by Provider To: Admit As Inpatient Discharge ED - Sign-Out/Discharge Documenting (check all that apply): Patient Departure - Admit to [facility] - Discharge Plan Condition: Stable Disposition: ADMITTED TO [facility] - Billing Disposition and Condition Condition: STABLE Disposition: Admitted to [facility] - Attestation Statements Document Initiated by Diya: Yes Documenting Scribe: Purvi Montilla Provider For Whom Kaseyibdwayne is Documenting (Include Credential): Tunde Durant MD Scribe Attestation: Purvi Candelaria scribed for Tunde Durant MD on 04/27/19 at 1716. Scribe Documentation Reviewed: Yes Provider Attestation: The documentation as recorded by the Purvi hill accurately reflects the service I personally performed and the decisions made by Tunde jeong MD Status of Scribe Document: Viewed
[2019-04-27 12:18] LABS: Hematocrit 37 % (35-47); Hemoglobin 12.4 g/dL (12.0-16.0); Mean Corpuscular HGB Conc 34 g/dL (31-36); Mean Corpuscular Hemoglobin 29 pg (27-31); Mean Corpuscular Volume 85 fL (80-97); Mean Platelet Volume 7.5 fL (7.4-10.4); Platelet Count 394 10^3/uL (150-450); Red Blood Count 4.33 10^6 /uL (3.70-4.87); Red Cell Distribution Width 16 % (10-15)
[2019-04-27 12:29] LABS: INR 1.33 (0.82-1.09)
[2019-04-27 12:35] LABS: ALT 11 U/L (7-52); AST 25 U/L (13-39); Albumin 3.3 g/dL (3.2-5.2); Alkaline Phosphatase 74 U/L (34-104); Anion Gap 10 mmol/L (2-11); BUN/Creatinine Ratio 55.1 (8-20); Blood Urea Nitrogen 27 mg/dL (6-24); CO2 Carbon Dioxide 23 mmol/L (22-32); Calcium 8.9 mg/dL (8.6-10.3); Chloride 106 mmol/L (101-111); Creatine Kinase 448 U/L (10-223); EGFR African American 145.6 (>60); EGFR Non-African American 120.3 (>60); Globulin 3.3 g/dL (2-4); Glucose 151 mg/dL (70-100); Potassium 3.2 mmol/L (3.5-5.0); Sodium 139 mmol/L (135-145); Total Protein 6.6 g/dL (6.4-8.9)
[2019-04-27 12:40] LABS: Troponin I 0.03 ng/mL (<0.03)
[2019-04-27] MEDS ORDERED: Iohexol 300* (CONTRAST) 10 ML SDV IV ONE (12:52)
[2019-04-27 13:11] LABS: TSH (Thyroid Stimulating Horm) 0.81 mcIU/mL (0.34-5.60)
[2019-04-27 13:13] LABS: Free T4 1.24 ng/dL (0.61-1.12)
[2019-04-27] MEDS ORDERED: Morphine 4 MG/ML VIAL (1 ml) 4 MG/ML VIAL IV ONE ×2 (13:20→13:25)
[2019-04-27] MEDS ORDERED: Acetaminophen TAB* 325 MG PO ONE (13:20)
[2019-04-27] MEDS ORDERED: Ondansetron INJ* 2 MG/ML VIAL IV ONE (13:25)
[2019-04-27] MEDS ORDERED: Cefepime(*) 2 GM in NS 0.9% 50 ML* 50 ML IVPB ONE (13:41)
[2019-04-27] MEDS ORDERED: Levofloxacin 750 MG IVPREMIX(* 750 MG/150 ML BAG IVPB ONE (13:41)
[2019-04-27 15:06] LABS: C Reactive Protein 129.59 mg/L (<8.01)
[2019-04-27 15:48] LABS: Troponin I 0.04 ng/mL (<0.03)
[2019-04-27] MEDS ORDERED: NS 0.9% 1000 ML** 1,000 ML IV SCH (16:00)
--- NOTE | 2019-04-27 16:21 | PN ---
Sepsis Event Evaluation Date of Evaluation: 04/27/19 Time of Evaluation: 16:20 Current Stage of Sepsis: Sepsis Vital Signs - Last 12 Hours: Vital Signs - 12 hr Temp Pulse Resp BP Pulse Ox 04/27/19 16:03 108 26 117/57 97 04/27/19 16:00 118 21 97 04/27/19 15:33 143 17 91/63 88 04/27/19 15:25 98.8 F 93 18 133/71 97 04/27/19 15:04 118 35 133/71 96 04/27/19 15:00 129 22 92 04/27/19 14:33 117 25 102/79 80 04/27/19 14:03 115 32 111/72 92 04/27/19 14:00 95 27 90 04/27/19 13:36 110 30 136/66 92 04/27/19 13:34 106 27 56/22 86 04/27/19 13:16 103 31 92 04/27/19 12:33 17 152/90 04/27/19 12:03 93 22 147/70 93 04/27/19 12:00 112 24 92 04/27/19 11:58 105 19 91 04/27/19 11:57 98.8 F 113 21 147/70 90 Lactic Acid: 04/27/19 04/27/19 12:09 15:11 Lactic Acid 2.4 H* 1.8 - Cardiopulmonary Exam Capillary Refill: Immediate Respiratory: Symmetrical Chest Expansion and Respiratory Effort Cardiovascular: RRR, - - Systolic murmur at sternal border - Peripheral Pulse Exam Radial Pulses: Bilateral Normal Pedal Pulses: Bilateral Normal Posterior Tibial Pulse: Bilateral Normal Femoral Pulses: Bilateral Normal Popliteal Pulses: Bilateral Normal - Skin Exam Skin Exam: Normal Turgor - [place] Coma Scale Best Eye Response: 4 - Spontaneous Best Motor Response: 6 - Obeys Commands Best Verbal Response: 4 - Confused Coma Scale Total: 14 Assess/Plan/Problems-Billing Assessment:
[2019-04-27] MEDS: KCL 20 MEQ/100 ML IVPREMIX* 20 MEQ/100 ML BAG IV SCH ×2 (17:02→20:36)
[2019-04-27] MEDS ORDERED: Magnesium Hydroxide LIQ* 30 ML UDC PO PRN (18:45)
[2019-04-27] MEDS ORDERED: Bisacodyl SUPP* 10 MG SUPP PR PRN (18:45)
[2019-04-27] MEDS ORDERED: Acetaminophen TAB* 325 MG PO PRN (18:45)
[2019-04-27] MEDS ORDERED: Albuterol HFA INHALER* 8 gm MDI INH PRN (18:45)
[2019-04-27] MEDS ORDERED: oxyCODONE TAB* 5 MG TAB PO ONE (18:47)
[2019-04-27 18:59] LABS: Troponin I 0.05 ng/mL (<0.03)
[2019-04-27] MEDS: DOXYcycline CAP(*) 100 MG PO SCH (20:23)
[2019-04-27] MEDS: Cyclobenzaprine TAB* 10 MG PO SCH (20:24)
[2019-04-27] MEDS: QUEtiapine TAB* 25 MG PO SCH (20:25)
[2019-04-27] MEDS: Pregabalin 25 mg CAP (*) PO SCH (20:27)
[2019-04-27] MEDS: Metoprolol Tartrate TAB* 25 MG PO SCH (20:27)
[2019-04-27] MEDS: oxyCODONE TAB* 5 MG TAB PO SCH (20:28)
[2019-04-27] MEDS: traZODone TAB* 50 MG TAB PO SCH (20:28)
[2019-04-27] MEDS: Acetaminophen TAB* 325 MG PO SCH (20:29)
[2019-04-27] MEDS ORDERED: Lidocaine Patch REMOVE* 1 NOTE MISC SCH (21:00)
[2019-04-27] MEDS: Lidocaine Patch REMOVE* 1 NOTE MISC SCH (21:23)
[2019-04-27] MEDS: Capsaicin 0.025% CREAM* 60 GM TOPICAL SCH (21:23)
--- NOTE | 2019-04-27 22:44 | HP ---
CC: Providers at [facility] MEDICINE HISTORY AND PHYSICAL: DATE OF ADMISSION: 04/27/19 ATTENDING PHYSICIAN: Dr. Mary Diaz * (dictation provided by Olivia Berman NP ) CHIEF COMPLAINT: Hypoxia and altered mental status. HISTORY OF PRESENT ILLNESS: Ms. Lamar is an 84-year-old female with past medical history of dementia and all information is obtained from discussion with the [facility] staff today. Per the report, Ms. Lamar has a history of aortic stenosis noted to be severe to critical, hypertension, and asthma, dementia, and personality disorder. She has been noted to be "dusky, diaphoretic, and hallucinating." She has been noted to have leg weakness x24 to 48 hours. Today, she had an O2 saturation checked and it was 88% at rest and therefore she was brought to the emergency room for evaluation. Here in the ED, she was 88% on 2 L and now is responding well to 4 L nasal cannula. In the emergency room, the workup showed a white blood cell count of 11 only. Her CRP was elevated to 129.59, lactic acid 2.4. She is not febrile, but is mildly tachycardic with heart rate running 100, at times up to 120. Again, she does have acute hypoxic respiratory failure, requiring 4 L nasal cannula, which is new and she has a mildly elevated troponin to 0.03. Chest x-ray shows concern for a right upper lobe infiltrate. Abdomen and pelvis CT shows no abnormality other than the known sacral decubitus ulcer. She did have a CT brain that showed no acute abnormality. PAST MEDICAL HISTORY: 1. Dementia. 2. History of personality disorder. 3. Oxheoh-rq-cbdsxzcx aortic stenosis. 4. Hypertension. 5. Asthma. MEDICATIONS: 1. Amlodipine 5 mg p.o. daily. 2. Lidocaine 1 patch to each knee daily. 3. Escitalopram 5 mg p.o. daily (dose is being tapered). 4. Senna 1 tab p.o. daily. 5. Pregabalin 25 mg p.o. at bedtime. 6. Myrbetriq 25 mg p.o. daily. 7. Levothyroxine 88 mcg p.o. daily. 8. Capsicin cream topically t.i.d. 9. Quetiapine 25 mg p.o. bedtime (dose being tapered). 10. Polyethylene glycol 17 g p.o. daily. 11. Olopatadine 0.1% 1 drop both eyes daily. 12. Clotrimazole cream topically daily. 13. Ondansetron 4 mg p.r.n. 14. Albuterol inhaler p.r.n. 15. Tylenol 650 mg p.o. p.r.n. 16. Metoprolol tartrate 25 mg p.o. b.i.d. 17. Milk of magnesia 30 mL p.o. daily p.r.n. 18. Dulcolax suppository daily p.r.n. 19. Tylenol 975 mg p.o. b.i.d. routinely. 20. Trazodone 50 mg p.o. at bedtime. 21. Oxycodone 5 mg p.o. t.i.d. 22. Cyclobenzaprine 10 mg p.o. t.i.d. ALLERGIES: OPIOIDS including MORPHINE, AVELOX, CODEINE, and PENICILLIN. FAMILY HISTORY: Unobtainable. SOCIAL HISTORY: Unobtainable. The patient is resident of [facility]. REVIEW OF SYSTEMS: Unobtainable. PHYSICAL EXAMINATION GENERAL: Ms. Lamar is lying in the bed. She is screaming continuously throughout my attempted evaluation. She will stop at times and yell and converse more coherently, but otherwise is mostly screaming and yelling what appears to be gibberish, but very intently. She seemed to move all extremities. She has no facial asymmetry. VITAL SIGNS: Temperature 99.1, pulse rate 108, respiratory rate 26, O2 saturation 97% on 4 L nasal cannula, blood pressure 117/57. HEENT: Pupils equal and reactive. LUNG: Clear. There is no wheezing or rhonchi appreciated. HEART: S1, S2 with systolic murmur. ABDOMEN: Soft and nontender with bowel sounds positive x4. Periumbilical hernia noted, nontender to palpation. EXTREMITIES: No cyanosis. Positive 1+ edema. SKIN: The patient has a 2 x 2 x 2 cm packed decubitus ulcer sacral, which is covered now with a Mepilex. No evidence of erythema or drainage. The patient also has a left foot decubitus ulcer as well that is shallow and no erythema or drainage. DIAGNOSTIC STUDIES/LAB DATA: WBC 11.0, hemoglobin 12.4, hematocrit 37, platelet count 394. INR 1.33. VBG shows a pH of 7.50, pCO2 32, pO2 51.0, bicarbonate 26.5. Sodium 139, potassium 3.2, chloride 106, serum bicarbonate 23, BUN 27, creatinine 0.49, glucose 151, lactic acid 2.4. Troponin 0.03. CRP 129.59. BNP 52. Abdomen and pelvis CT is read as follows: "Periumbilical hernia containing fat , although there is stranding noted, incarceration of the periumbilical hernia, fat is not excluded and clinical correlation is suggested, otherwise no other masses or fluid collections are noted. There is a right renal cyst. Prominent extra and intrahepatic ducts likely due to post cholecystectomy state of the patient. There is a likely sacral decubitus ulcer noted with underlying edema and scant fluid noted just left of midline at the distal tip of the sacrum and coccyx. Small foci of air and fluid are noted presumably within the gluteus muscle." Chest x-ray shows question of right upper lobe infiltrate. CT brain shows atrophy. There is no evidence of intracranial mass or hemorrhage. ASSESSMENT: Ms. Lamar is an 84-year-old female with past medical history of dementia, personality disorder, severe aortic stenosis, hypertension, asthma, who presents to the hospital with concern for hypoxia, found to have acute hypoxemic respiratory failure with suspected pneumonia. Our plans are for observation in the hospital for the followin. Acute hypoxemic respiratory failure with pneumonia: Based on the overall clinical picture, I suspected that she does have pneumonia. Our plans will be to treat with ceftriaxone. She will have oxygen per titration. She will have albuterol inhaler p.r.n. with doxycycline. 2. Severe sepsis with pneumonia as per above. Her lactic acid was 2.4. We will repeat appropriately in 3 hours. She has had intravenous fluid in the emergency room. I am being cautious with intravenous fluid based on the fact she has severe- to-critical aortic stenosis and we will dose additional fluids based on the repeat lactic acid. Blood cultures are ordered. 3. Question of hernia. No evidence of significant pain on palpation. We will monitor. 4. Dementia. Plan for supportive care. 5. Chronic pain, continue home medications. 6. Question of aspiration. The patient is swallowing well with bedside swallow per nursing staff. We will order a full swallow evaluation by Speech Therapy when they are available. 7. DVT prophylaxis with heparin subcu. 8. Code status is full code and my MOLST form is on the chart. I did attempt to call the patient's proxy, but I left a message and I have not heard back from them. 9. Disposition: To telemetry. TIME SPENT: Approximately 60 minutes was spent on the admission of this patient , more than half that time was spent with the patient at the bedside reviewing the events leading up to this hospitalization, performing the physical examination, and reviewing my plan of care. OLIVIA BERMAN NP [id number]/CPS #: [id number] INÉS
[2019-04-27] MEDS: Heparin VIAL(*) 5000 UNITS/ML VIAL (FIVE THOUSAND) SUBCUT SCH (23:02)
[2019-04-28] MEDS: diPHENhydraMINE PO* 25 MG PO PRN ×2 (00:57→21:20)
[2019-04-28] MEDS: Acetaminophen TAB* 325 MG PO PRN (01:00)
--- NOTE | 2019-04-28 01:05 | PN ---
Resident Interval ProgressNote Date of Service: 04/28/19 Called to see patient for abdominal pain, Patient had been screaming loudly constantly since I am on shift. Nurse detected that she was screaming when pressing on her abdomen, especially the right lower abdomen. Patient was screaming harder when I stepped in the room. She is a [facility] resident came in for sepsis likely due to pneumonia. PE: Wide awake, screaming loudly with a hoarse voice, but no painful expression Abdomen: soft, BS positive suspicious diffuse tenderness (she actually screamed whenever I pressed on her abdomen, however she stopped screaming when I distracted her while still pressing on it). She again screamed when I palpated her legs, arms, chest. However she could talk to me normally without screaming when I distracted her. A+P I am not convinced that her diffuse pain was real, it's more attention seeking to me. She did have CTAP which didn't reveal any acute pathology when she came in yesterday. I would hold off further investigation, and give her some Benadryl for sleep. I will monitor her symptoms and consider repeat scan if any change in her signs and symptoms.
[2019-04-28] MEDS: Levothyroxine TAB* 88 MCG TAB PO SCH (06:04)
[2019-04-28] MEDS: Heparin VIAL(*) 5000 UNITS/ML VIAL (FIVE THOUSAND) SUBCUT SCH ×3 (06:05→20:19)
[2019-04-28 06:27] LABS: ABS Basophils 0.1 10^3/ul (0-0.2); ABS Eosinophils 0.1 10^3/ul (0-0.6); ABS Lymphocytes 1.1 10^3/ul (1.0-4.8); ABS Monocytes 1.3 10^3/ul (0-0.8); ABS Neutrophils 8.2 10^3/ul (1.5-7.7); Eosinophil % 0.6 %; Hematocrit 33 % (35-47); Hemoglobin 11.1 g/dL (12.0-16.0); Lymphocyte % 9.8 %; Mean Corpuscular HGB Conc 34 g/dL (31-36); Mean Corpuscular Hemoglobin 29 pg (27-31); Mean Corpuscular Volume 85 fL (80-97); Mean Platelet Volume 7.6 fL (7.4-10.4); Platelet Count 318 10^3/uL (150-450); Red Blood Count 3.85 10^6 /uL (3.70-4.87); Red Cell Distribution Width 16 % (10-15); White Blood Count 10.7 10^3/uL (3.5-10.8)
[2019-04-28 06:45] LABS: BUN/Creatinine Ratio 42.6 (8-20); Calcium 8.8 mg/dL (8.6-10.3); EGFR African American 99.7 (>60); EGFR Non-African American 82.4 (>60); Potassium 4.3 mmol/L (3.5-5.0)
[2019-04-28] MEDS ORDERED: Lidocaine PATCH 5%* 1 PATCH TRANSDERM SCH (09:00)
[2019-04-28] MEDS: Acetaminophen TAB* 325 MG PO SCH ×2 (09:59→20:08)
[2019-04-28] MEDS: amLODIPine TAB* 5 MG PO SCH (09:59)
[2019-04-28] MEDS: Senna TAB 8.6 mg* TAB PO SCH (09:59)
[2019-04-28] MEDS: DOXYcycline CAP(*) 100 MG PO SCH ×2 (09:59→20:19)
[2019-04-28] MEDS: Cyclobenzaprine TAB* 10 MG PO SCH ×3 (10:00→20:13)
[2019-04-28] MEDS: Metoprolol Tartrate TAB* 25 MG PO SCH ×2 (10:00→20:20)
[2019-04-28] MEDS: oxyCODONE TAB* 5 MG TAB PO SCH ×3 (10:00→20:20)
[2019-04-28] MEDS: Escitalopram * 5 MG TAB PO SCH (10:00)
[2019-04-28] MEDS: Lidocaine PATCH 5%* 1 PATCH TRANSDERM SCH (10:01)
[2019-04-28] MEDS: Clotrimazole 1% CREAM* 45 GM TOPICAL SCH (10:02)
[2019-04-28] MEDS: Capsaicin 0.025% CREAM* 60 GM TOPICAL SCH ×3 (10:02→20:24)
[2019-04-28] MEDS: Polyethylene Glycol 3350* 17 GM PACKET PO SCH (10:03)
[2019-04-28] MEDS: NF:Mirabegron (NF) 25 MG TAB PO SCH (11:04)
[2019-04-28] MEDS: cefTRIAXone(*) 1 GM in NS 0.9% 50 ML* 50 ML IVPB SCH (14:37)
--- NOTE | 2019-04-28 16:09 | PN ---
Subjective Date of Service: 04/28/19 Interval History: Behavioral disturbance at baseline. Yelling but able to have a full appropriate conversation.Reports that she feels better Objective Active Medications: Acetaminophen (Tylenol Tab*) 650 mg PO Q6H PRN PRN Reason: PAIN - MILD Last Admin: 04/28/19 01:00 Dose: 650 mg Acetaminophen (Tylenol Tab*) 975 mg PO BID [facility] Last Admin: 04/28/19 09:59 Dose: 975 mg Albuterol (Ventolin Hfa Inhaler*) 2 puff INH Q4H PRN PRN Reason: SHORTNESS OF BREATH Amlodipine Besylate (Norvasc Tab*) 5 mg PO DAILY [facility] Last Admin: 04/28/19 09:59 Dose: 5 mg Bisacodyl (Dulcolax Supp*) 10 mg DC DAILY PRN PRN Reason: CONSTIPATION Capsaicin (Zostrix 0.025% Cream*) 1 applic TOPICAL TID [facility] Last Admin: 04/28/19 14:42 Dose: 1 applic Clotrimazole (Clotrimazole 1%*) 1 applic TOPICAL DAILY [facility] Last Admin: 04/28/19 10:02 Dose: 1 applic Cyclobenzaprine HCl (Flexeril Tab*) 10 mg PO TID [facility] Last Admin: 04/28/19 14:40 Dose: 10 mg Diphenhydramine HCl (Benadryl Po*) 25 mg PO BEDTIME PRN PRN Reason: INSOMNIA Last Admin: 04/28/19 00:57 Dose: 25 mg Doxycycline Hyclate (Vibramycin Cap(*)) 100 mg PO BID [facility] Last Admin: 04/28/19 09:59 Dose: 100 mg Escitalopram Oxalate (Lexapro *) 5 mg PO DAILY [facility] Last Admin: 04/28/19 10:00 Dose: 5 mg Heparin Sodium (Porcine) (Heparin Vial(*)) 5,000 units SUBCUT Q8HR [facility] Last Admin: 04/28/19 14:39 Dose: 5,000 units Ceftriaxone Sodium 1 gm/ (Sodium Chloride) 50 mls @ 100 mls/hr IVPB Q24H [facility] Last Admin: 04/28/19 14:37 Dose: 100 mls/hr Levothyroxine Sodium (Synthroid Tab*) 88 mcg PO 0600 [facility] Last Admin: 04/28/19 06:04 Dose: 88 mcg Lidocaine (Lidoderm 5% Patch*) 1 patch TRANSDERM DAILY [facility] Last Admin: 04/28/19 10:01 Dose: 1 patch Magnesium Hydroxide (Milk Of Magnginna Liq*) 30 ml PO DAILY PRN PRN Reason: CONSTIPATION Metoprolol Tartrate (Lopressor Tab*) 25 mg PO BID [facility] Last Admin: 04/28/19 10:00 Dose: 25 mg Mirabegron (Myrbetriq (Nf)) 25 mg PO DAILY [facility] Last Admin: 04/28/19 11:04 Dose: Not Given Oxycodone HCl (Roxycodone Tab*) 5 mg PO TID [facility] Last Admin: 04/28/19 14:41 Dose: 5 mg Pharmacy Profile Note (Lidocaine Patch Remove*) 1 note N/A 2100 [facility] Last Admin: 04/27/19 21:23 Dose: Not Given Polyethylene Glycol/Electrolytes (Miralax*) 17 gm PO DAILY [facility] Last Admin: 04/28/19 10:03 Dose: 17 gm Pregabalin (Lyrica 25 Mg Cap (*)) 25 mg PO BEDTIME [facility] Last Admin: 04/27/19 20:27 Dose: 25 mg Quetiapine Fumarate (Seroquel Tab*) 25 mg PO BEDTIME [facility] Last Admin: 04/27/19 20:25 Dose: 25 mg Senna (Senokot 8.6 Mg Tab*) 1 tab PO DAILY [facility] Last Admin: 04/28/19 09:59 Dose: 1 tab Trazodone HCl (Desyrel Tab*) 50 mg PO BEDTIME [facility] Last Admin: 04/27/19 20:28 Dose: 50 mg Vital Signs - 8 hr 04/28/19 04/28/19 04/28/19 10:00 14:40 14:41 Respiratory 20 20 20 Rate Oxygen Devices in Use Now: Nasal Cannula Eyes: No Scleral Icterus Ears/Nose/Mouth/Throat: NL Teeth, Lips, Gums Neck: NL Appearance and Movements; NL JVP Respiratory: Symmetrical Chest Expansion and Respiratory Effort Cardiovascular: NL Sounds; No Murmurs; No JVD Abdominal: NL Sounds; No Tenderness; No Distention Extremities: No Edema Neurological: Alert and Oriented x 3 Result Diagrams: 04/28/19 06:17 04/28/19 06:17 Microbiology and Other Data: Microbiology 04/27/19 16:30 Nasal Screen MRSA (PCR) - Final Nasal Mrsa Not Detected Assess/Plan/Problems-Billing Assessment: - Patient Problems (1) Pneumonia Current Visit: Yes Status: Acute Code(s): J18.9 - PNEUMONIA, UNSPECIFIED ORGANISM SNOMED Code(s): 058570164 Comment: Continue Ceftriaxone and Doxycycline Improving Will assess oximetry on ambulation urinary legionella,pneumococcal ag when able blood cx pending duoneb prn (2) Urinary incontinence Current Visit: Yes Status: Acute Code(s): R32 - UNSPECIFIED URINARY INCONTINENCE SNOMED Code(s): 645453055 Comment: on medications at home ?urinary retention but only 100 ml on bladder scan Will avoid keita catheter if able (3) Anxiety Current Visit: Yes Status: Acute Code(s): F41.9 - ANXIETY DISORDER, UNSPECIFIED SNOMED Code(s): 39633054 Comment: and personality disorder at baseline but able to have an appropriate conversation Status and Disposition: PT/OT
[2019-04-28] MEDS ORDERED: Albuterol/Ipratropium NEB.SOL* Albuterol 2.5 MG/Ipratropium 0.5 MG 3 ML INH PRN (16:10)
[2019-04-28] MEDS: Lidocaine Patch REMOVE* 1 NOTE MISC SCH ×2 (20:20→20:26)
[2019-04-28] MEDS: Pregabalin 25 mg CAP (*) PO SCH (20:21)
[2019-04-28] MEDS: QUEtiapine TAB* 25 MG PO SCH (20:22)
[2019-04-28] MEDS: traZODone TAB* 50 MG TAB PO SCH (20:22)
[2019-04-29] MEDS: Levothyroxine TAB* 88 MCG TAB PO SCH (04:59)
[2019-04-29 05:05] LABS: ABS Eosinophils 0.3 10^3/ul (0-0.6); ABS Lymphocytes 0.9 10^3/ul (1.0-4.8); ABS Monocytes 0.7 10^3/ul (0-0.8); ABS Neutrophils 4.7 10^3/ul (1.5-7.7); Eosinophil % 3.9 %; Hematocrit 31 % (35-47); Hemoglobin 10.4 g/dL (12.0-16.0); Lymphocyte % 13.5 %; Mean Corpuscular HGB Conc 33 g/dL (31-36); Mean Corpuscular Hemoglobin 29 pg (27-31); Mean Corpuscular Volume 86 fL (80-97); Mean Platelet Volume 7.9 fL (7.4-10.4); Platelet Count 281 10^3/uL (150-450); Red Blood Count 3.66 10^6 /uL (3.70-4.87); Red Cell Distribution Width 16 % (10-15); White Blood Count 6.5 10^3/uL (3.5-10.8)
[2019-04-29 05:31] LABS: BUN/Creatinine Ratio 65.1 (8-20); Calcium 8.6 mg/dL (8.6-10.3); EGFR African American 169.3 (>60); EGFR Non-African American 139.9 (>60); Potassium 3.9 mmol/L (3.5-5.0)
[2019-04-29] MEDS: NF:Mirabegron (NF) 25 MG TAB PO SCH (10:22)
[2019-04-29] MEDS: DOXYcycline CAP(*) 100 MG PO SCH ×2 (10:44→20:35)
[2019-04-29] MEDS: oxyCODONE TAB* 5 MG TAB PO SCH ×3 (10:45→20:38)
[2019-04-29] MEDS: Polyethylene Glycol 3350* 17 GM PACKET PO SCH (10:48)
[2019-04-29] MEDS: Heparin VIAL(*) 5000 UNITS/ML VIAL (FIVE THOUSAND) SUBCUT SCH ×2 (10:49→20:36)
[2019-04-29] MEDS: Senna TAB 8.6 mg* TAB PO SCH (10:49)
[2019-04-29] MEDS: Escitalopram * 5 MG TAB PO SCH (10:49)
[2019-04-29] MEDS: Cyclobenzaprine TAB* 10 MG PO SCH ×3 (10:50→20:35)
[2019-04-29] MEDS: Metoprolol Tartrate TAB* 25 MG PO SCH ×2 (10:50→20:37)
[2019-04-29] MEDS: amLODIPine TAB* 5 MG PO SCH (10:50)
[2019-04-29] MEDS: Acetaminophen TAB* 325 MG PO SCH ×2 (10:51→20:34)
[2019-04-29] MEDS: Clotrimazole 1% CREAM* 45 GM TOPICAL SCH (10:51)
[2019-04-29] MEDS: Lidocaine PATCH 5%* 1 PATCH TRANSDERM SCH (10:52)
[2019-04-29] MEDS: Capsaicin 0.025% CREAM* 60 GM TOPICAL SCH ×3 (10:56→20:44)
--- NOTE | 2019-04-29 11:24 | PN ---
Subjective Date of Service: 04/29/19 Interval History: Much better today.Very calm.Not yelling.Reports that she was in pain yesterday and not feeling well and scared and that makes her yell. Objective Active Medications: Acetaminophen (Tylenol Tab*) 650 mg PO Q6H PRN PRN Reason: PAIN - MILD Last Admin: 04/28/19 01:00 Dose: 650 mg Acetaminophen (Tylenol Tab*) 975 mg PO BID [facility] Last Admin: 04/29/19 10:51 Dose: 975 mg Albuterol (Ventolin Hfa Inhaler*) 2 puff INH Q4H PRN PRN Reason: SHORTNESS OF BREATH Albuterol/Ipratropium (Duoneb (Albuterol 2.5 Mg/Ipratropium 0.5 Mg)) 1 neb INH Q4H PRN PRN Reason: SOB/WHEEZING Amlodipine Besylate (Norvasc Tab*) 5 mg PO DAILY [facility] Last Admin: 04/29/19 10:50 Dose: 5 mg Bisacodyl (Dulcolax Supp*) 10 mg [place] DAILY PRN PRN Reason: CONSTIPATION Capsaicin (Zostrix 0.025% Cream*) 1 applic TOPICAL TID [facility] Last Admin: 04/29/19 10:56 Dose: 1 applic Clotrimazole (Clotrimazole 1%*) 1 applic TOPICAL DAILY [facility] Last Admin: 04/29/19 10:51 Dose: 1 applic Cyclobenzaprine HCl (Flexeril Tab*) 10 mg PO TID [facility] Last Admin: 04/29/19 10:50 Dose: 10 mg Diphenhydramine HCl (Benadryl Po*) 25 mg PO BEDTIME PRN PRN Reason: INSOMNIA Last Admin: 04/28/19 21:20 Dose: 25 mg Doxycycline Hyclate (Vibramycin Cap(*)) 100 mg PO BID [facility] Last Admin: 04/29/19 10:44 Dose: 100 mg Escitalopram Oxalate (Lexapro *) 5 mg PO DAILY [facility] Last Admin: 04/29/19 10:49 Dose: 5 mg Heparin Sodium (Porcine) (Heparin Vial(*)) 5,000 units SUBCUT Q12HR [facility] Last Admin: 04/29/19 10:49 Dose: 5,000 units Ceftriaxone Sodium 1 gm/ (Sodium Chloride) 50 mls @ 100 mls/hr IVPB Q24H [facility] Last Admin: 04/28/19 14:37 Dose: 100 mls/hr Sodium Chloride (Ns 0.9% 1000 Ml) 1,000 mls @ 75 mls/hr IV PER RATE [facility] Levothyroxine Sodium (Synthroid Tab*) 88 mcg PO 0600 [facility] Last Admin: 04/29/19 04:59 Dose: 88 mcg Lidocaine (Lidoderm 5% Patch*) 1 patch TRANSDERM DAILY [facility] Last Admin: 04/29/19 10:52 Dose: 1 patch Magnesium Hydroxide (Milk Of Magnesia Liq*) 30 ml PO DAILY PRN PRN Reason: CONSTIPATION Metoprolol Tartrate (Lopressor Tab*) 25 mg PO BID [facility] Last Admin: 04/29/19 10:50 Dose: 25 mg Mirabegron (Myrbetriq (Nf)) 25 mg PO DAILY [facility] Last Admin: 04/29/19 10:22 Dose: Not Given Oxycodone HCl (Roxycodone Tab*) 5 mg PO TID [facility] Last Admin: 04/29/19 10:45 Dose: 5 mg Pharmacy Profile Note (Lidocaine Patch Remove*) 1 note N/A 2100 [facility] Last Admin: 04/28/19 20:26 Dose: 1 note Polyethylene Glycol/Electrolytes (Miralax*) 17 gm PO DAILY [facility] Last Admin: 04/29/19 10:48 Dose: 17 gm Pregabalin (Lyrica 25 Mg Cap (*)) 25 mg PO BEDTIME [facility] Last Admin: 04/28/19 20:21 Dose: 25 mg Quetiapine Fumarate (Seroquel Tab*) 25 mg PO BEDTIME [facility] Last Admin: 04/28/19 20:22 Dose: 25 mg Senna (Senokot 8.6 Mg Tab*) 1 tab PO DAILY [facility] Last Admin: 04/29/19 10:49 Dose: 1 tab Trazodone HCl (Desyrel Tab*) 50 mg PO BEDTIME [facility] Last Admin: 04/28/19 20:22 Dose: 50 mg Vital Signs - 8 hr 04/29/19 04/29/19 04/29/19 03:34 07:56 10:45 Temperature 98.2 F 97.6 F Pulse Rate 82 85 Respiratory 16 16 16 Rate Blood Pressure 144/56 118/42 (mmHg) O2 Sat by Pulse 98 97 Oximetry 04/29/19 10:50 Temperature Pulse Rate Respiratory 16 Rate Blood Pressure (mmHg) O2 Sat by Pulse Oximetry Oxygen Devices in Use Now: Nasal Cannula Eyes: No Scleral Icterus Ears/Nose/Mouth/Throat: NL Teeth, Lips, Gums Neck: NL Appearance and Movements; NL JVP Respiratory: Symmetrical Chest Expansion and Respiratory Effort, - - bronchial breath sounds Cardiovascular: NL Sounds; No Murmurs; No JVD Abdominal: NL Sounds; No Tenderness; No Distention Extremities: No Edema Neurological: Alert and Oriented x 3 Result Diagrams: 04/29/19 04:39 04/29/19 04:39 Microbiology and Other Data: Microbiology 04/27/19 16:30 Nasal Screen MRSA (PCR) - Final Nasal Mrsa Not Detected Assess/Plan/Problems-Billing Assessment: - Patient Problems (1) Pneumonia Current Visit: Yes Status: Acute Code(s): J18.9 - PNEUMONIA, UNSPECIFIED ORGANISM SNOMED Code(s): 628851947 Comment: Continue Ceftriaxone and Doxycycline Improving Will assess oximetry on ambulation urinary legionella,pneumococcal ag when able blood cx pending duoneb prn (2) Urinary incontinence Current Visit: Yes Status: Acute Code(s): R32 - UNSPECIFIED URINARY INCONTINENCE SNOMED Code(s): 581239910 Comment: on medications at home ?urinary retention but only 100 ml on bladder scan Will avoid keita catheter if able (3) Anxiety Current Visit: Yes Status: Acute Code(s): F41.9 - ANXIETY DISORDER, UNSPECIFIED SNOMED Code(s): 09810715 Comment: and personality disorder at baseline but able to have an appropriate conversation (4) Rhabdomyolysis Current Visit: Yes Status: Acute Code(s): M62.82 - RHABDOMYOLYSIS SNOMED Code(s): 165658391 Comment: Gentle hydration CK rising Will be careful with her critical (5) Aortic stenosis Current Visit: No Status: Acute Code(s): I35.0 - NONRHEUMATIC AORTIC (VALVE ) STENOSIS SNOMED Code(s): 22400959 Comment: - Previously severe - Not symptomatic - Monitor fluid status - Not in HF -If no improvement in sob, will repeat Echo.No recent echo noted (6) Elevated troponin Current Visit: Yes Status: Acute Code(s): R79.89 - OTHER SPECIFIED ABNORMAL FINDINGS OF BLOOD CHEMISTRY SNOMED Code(s): 567099905 Comment: In the setting of Rhabdo No CP Status and Disposition: PT/OT
[2019-04-29] MEDS: NS 0.9% 1000 ML** 1,000 ML IV SCH (12:18)
[2019-04-29] MEDS: cefTRIAXone(*) 1 GM in NS 0.9% 50 ML* 50 ML IVPB SCH (14:34)
[2019-04-29] MEDS: Lidocaine Patch REMOVE* 1 NOTE MISC SCH (20:36)
[2019-04-29] MEDS: Pregabalin 25 mg CAP (*) PO SCH (20:42)
[2019-04-29] MEDS: QUEtiapine TAB* 25 MG PO SCH (20:43)
[2019-04-29] MEDS: traZODone TAB* 50 MG TAB PO SCH (20:43)
[2019-04-30] MEDS: NS 0.9% 1000 ML** 1,000 ML IV SCH (05:42)
[2019-04-30] MEDS: Levothyroxine TAB* 88 MCG TAB PO SCH (05:48)
[2019-04-30 06:27] LABS: ABS Basophils 0.1 10^3/ul (0-0.2); ABS Eosinophils 0.3 10^3/ul (0-0.6); ABS Lymphocytes 0.8 10^3/ul (1.0-4.8); ABS Monocytes 0.7 10^3/ul (0-0.8); ABS Neutrophils 5.1 10^3/ul (1.5-7.7); Eosinophil % 3.6 %; Hematocrit 32 % (35-47); Hemoglobin 10.6 g/dL (12.0-16.0); Lymphocyte % 11.8 %; Mean Corpuscular HGB Conc 33 g/dL (31-36); Mean Corpuscular Hemoglobin 29 pg (27-31); Mean Corpuscular Volume 86 fL (80-97); Mean Platelet Volume 7.9 fL (7.4-10.4); Platelet Count 309 10^3/uL (150-450); Red Blood Count 3.71 10^6 /uL (3.70-4.87); Red Cell Distribution Width 16 % (10-15)
[2019-04-30 06:42] LABS: BUN/Creatinine Ratio 64.1 (8-20); Calcium 8.4 mg/dL (8.6-10.3); EGFR African American 189.5 (>60); EGFR Non-African American 156.6 (>60); Potassium 3.9 mmol/L (3.5-5.0)
[2019-04-30] MEDS: Acetaminophen TAB* 325 MG PO SCH ×2 (10:17→21:37)
[2019-04-30] MEDS: Cyclobenzaprine TAB* 10 MG PO SCH ×4 (10:18→21:39)
[2019-04-30] MEDS: oxyCODONE TAB* 5 MG TAB PO SCH ×3 (10:18→21:38)
[2019-04-30] MEDS: Metoprolol Tartrate TAB* 25 MG PO SCH ×2 (10:19→21:39)
[2019-04-30] MEDS: Senna TAB 8.6 mg* TAB PO SCH (10:20)
[2019-04-30] MEDS: Heparin VIAL(*) 5000 UNITS/ML VIAL (FIVE THOUSAND) SUBCUT SCH ×2 (10:20→21:54)
[2019-04-30] MEDS: DOXYcycline CAP(*) 100 MG PO SCH ×2 (10:20→21:39)
[2019-04-30] MEDS: amLODIPine TAB* 5 MG PO SCH (10:20)
[2019-04-30] MEDS: Lidocaine PATCH 5%* 1 PATCH TRANSDERM SCH (10:20)
[2019-04-30] MEDS: Escitalopram * 5 MG TAB PO SCH (10:20)
[2019-04-30] MEDS: NF:Mirabegron (NF) 25 MG TAB PO SCH (10:21)
[2019-04-30] MEDS: Capsaicin 0.025% CREAM* 60 GM TOPICAL SCH ×3 (10:21→21:56)
[2019-04-30] MEDS: Polyethylene Glycol 3350* 17 GM PACKET PO SCH (10:21)
[2019-04-30] MEDS: Clotrimazole 1% CREAM* 45 GM TOPICAL SCH (10:21)
[2019-04-30] MEDS: cefTRIAXone(*) 1 GM in NS 0.9% 50 ML* 50 ML IVPB SCH (13:52)
--- NOTE | 2019-04-30 15:23 | PN ---
Subjective Date of Service: 04/30/19 Interval History: Still sob but reports feeling better.Tried to wean oxygen but still on 4.5l oxygen.Does not use any at baseline. Objective Active Medications: Acetaminophen (Tylenol Tab*) 650 mg PO Q6H PRN PRN Reason: PAIN - MILD Last Admin: 04/28/19 01:00 Dose: 650 mg Acetaminophen (Tylenol Tab*) 975 mg PO BID [facility] Last Admin: 04/30/19 10:17 Dose: 975 mg Albuterol (Ventolin Hfa Inhaler*) 2 puff INH Q4H PRN PRN Reason: SHORTNESS OF BREATH Albuterol/Ipratropium (Duoneb (Albuterol 2.5 Mg/Ipratropium 0.5 Mg)) 1 neb INH Q4H PRN PRN Reason: SOB/WHEEZING Amlodipine Besylate (Norvasc Tab*) 5 mg PO DAILY [facility] Last Admin: 04/30/19 10:20 Dose: 5 mg Bisacodyl (Dulcolax Supp*) 10 mg [place] DAILY PRN PRN Reason: CONSTIPATION Capsaicin (Zostrix 0.025% Cream*) 1 applic TOPICAL TID [facility] Last Admin: 04/30/19 13:52 Dose: 1 applic Clotrimazole (Clotrimazole 1%*) 1 applic TOPICAL DAILY [facility] Last Admin: 04/30/19 10:21 Dose: 1 applic Cyclobenzaprine HCl (Flexeril Tab*) 10 mg PO TID [facility] Last Admin: 04/30/19 14:04 Dose: Not Given Diphenhydramine HCl (Benadryl Po*) 25 mg PO BEDTIME PRN PRN Reason: INSOMNIA Last Admin: 04/28/19 21:20 Dose: 25 mg Doxycycline Hyclate (Vibramycin Cap(*)) 100 mg PO BID [facility] Last Admin: 04/30/19 10:20 Dose: 100 mg Escitalopram Oxalate (Lexapro *) 5 mg PO DAILY [facility] Last Admin: 04/30/19 10:20 Dose: 5 mg Heparin Sodium (Porcine) (Heparin Vial(*)) 5,000 units SUBCUT Q12HR [facility] Last Admin: 04/30/19 10:20 Dose: 5,000 units Ceftriaxone Sodium 1 gm/ (Sodium Chloride) 50 mls @ 100 mls/hr IVPB Q24H [facility] Last Admin: 04/30/19 13:52 Dose: 100 mls/hr Levothyroxine Sodium (Synthroid Tab*) 88 mcg PO 0600 [facility] Last Admin: 04/30/19 05:48 Dose: 88 mcg Lidocaine (Lidoderm 5% Patch*) 1 patch TRANSDERM DAILY [facility] Last Admin: 04/30/19 10:20 Dose: 1 patch Magnesium Hydroxide (Milk Of Magnesia Liq*) 30 ml PO DAILY PRN PRN Reason: CONSTIPATION Metoprolol Tartrate (Lopressor Tab*) 25 mg PO BID [facility] Last Admin: 04/30/19 10:19 Dose: 25 mg Mirabegron (Myrbetriq (Nf)) 25 mg PO DAILY [facility] Last Admin: 04/30/19 10:21 Dose: Not Given Oxycodone HCl (Roxycodone Tab*) 5 mg PO TID [facility] Last Admin: 04/30/19 13:51 Dose: 5 mg Pharmacy Profile Note (Lidocaine Patch Remove*) 1 note N/A 2100 [facility] Last Admin: 04/29/19 20:36 Dose: 1 note Polyethylene Glycol/Electrolytes (Miralax*) 17 gm PO DAILY [facility] Last Admin: 04/30/19 10:21 Dose: 17 gm Pregabalin (Lyrica 25 Mg Cap (*)) 25 mg PO BEDTIME [facility] Last Admin: 04/29/19 20:42 Dose: 25 mg Quetiapine Fumarate (Seroquel Tab*) 25 mg PO BEDTIME [facility] Last Admin: 04/29/19 20:43 Dose: 25 mg Senna (Senokot 8.6 Mg Tab*) 1 tab PO DAILY [facility] Last Admin: 04/30/19 10:20 Dose: 1 tab Trazodone HCl (Desyrel Tab*) 50 mg PO BEDTIME [facility] Last Admin: 04/29/19 20:43 Dose: 50 mg Vital Signs - 8 hr 04/30/19 04/30/19 04/30/19 07:46 08:00 10:18 Temperature 98.4 F Pulse Rate 87 Respiratory 16 16 18 Rate Blood Pressure 140/61 (mmHg) O2 Sat by Pulse 95 Oximetry 04/30/19 04/30/19 04/30/19 11:10 12:47 13:51 Temperature 98.6 F Pulse Rate 101 Respiratory 16 18 18 Rate Blood Pressure 147/61 (mmHg) O2 Sat by Pulse 95 Oximetry Oxygen Devices in Use Now: Nasal Cannula Eyes: No Scleral Icterus Ears/Nose/Mouth/Throat: NL Teeth, Lips, Gums Neck: NL Appearance and Movements; NL JVP Respiratory: Symmetrical Chest Expansion and Respiratory Effort Cardiovascular: NL Sounds; No Murmurs; No JVD Abdominal: NL Sounds; No Tenderness; No Distention Extremities: No Edema Neurological: Alert and Oriented x 3 Result Diagrams: 04/30/19 05:58 04/30/19 05:58 Microbiology and Other Data: Microbiology 04/27/19 16:30 Nasal Screen MRSA (PCR) - Final Nasal Mrsa Not Detected Assess/Plan/Problems-Billing Assessment: - Patient Problems (1) Pneumonia Current Visit: Yes Status: Acute Code(s): J18.9 - PNEUMONIA, UNSPECIFIED ORGANISM SNOMED Code(s): 413366044 Comment: Continue Ceftriaxone and Doxycycline Improving Will assess oximetry on ambulation urinary legionella,pneumococcal ag when able blood cx neg duoneb prn (2) Urinary incontinence Current Visit: Yes Status: Acute Code(s): R32 - UNSPECIFIED URINARY INCONTINENCE SNOMED Code(s): 480313794 Comment: on medications at home ?urinary retention but only 100 ml on bladder scan Will avoid keita catheter if able (3) Anxiety Current Visit: Yes Status: Acute Code(s): F41.9 - ANXIETY DISORDER, UNSPECIFIED SNOMED Code(s): 12746191 Comment: and personality disorder at baseline but able to have an appropriate conversation (4) Rhabdomyolysis Current Visit: Yes Status: Acute Code(s): M62.82 - RHABDOMYOLYSIS SNOMED Code(s): 921162047 Comment: Gently hydrated CK was rising Will be careful with her critical Will stop IVF today Recheck CPK (5) Aortic stenosis Current Visit: No Status: Acute Code(s): I35.0 - NONRHEUMATIC AORTIC (VALVE ) STENOSIS SNOMED Code(s): 52670103 Comment: - Previously severe - Not symptomatic - Monitor fluid status - Not in HF -If no improvement in sob, will repeat Echo.No recent echo noted (6) Elevated troponin Current Visit: Yes Status: Acute Code(s): R79.89 - OTHER SPECIFIED ABNORMAL FINDINGS OF BLOOD CHEMISTRY SNOMED Code(s): 514532319 Comment: In the setting of Rhabdo No CP Status and Disposition: Per d/w [facility], pt is a nina lift at baseline but on no oxygen.sob improving. if able to wean oxygen to 1-2l and pt improves, anticipate d/c back to [facility] tomorrow
--- NOTE | 2019-04-30 17:29 | CONSULT ---
Subjective Date of Service: 04/30/19 Interval History: Ms. Lamar is an 84 yo female with PMH significant for dementia, personality disorder, severe , HTN, asthma, and COPD; she presented to the emergency room with complaints of hypoxia and altered mental status. She was admitted to the hospital for acute hypoxic respiratory failure, severe sepsis, and PNA. 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 This has been present at least 208 days according to the documentation from [facility]. She has been followed by Dr. Mcneil with recommendations for packing the wound with 1/4 inch iodoform gauze and cover the wound with a dressing. Last measurements at [facility] on 04/16/19; 0.4 cm x 0.3 cm x 2.5 cm at 11 o'clock. The area was also previously sharp debrided. Also presented with a wound to the left lateral foot. Patient seen and examined at bedside. Verbal consent obtained for wound consultation and photograph. Family History: Unchanged from Admission Social History: Unchanged from Admission Past Medical History: Unchanged from Admission Review of Systems - Measurements Intake and Output: Intake and Output Last 24 Hours 04/28/19 04/29/19 04/30/19 05/01/19 06:59 06:59 06:59 06:59 Intake Total 771 228 3949 1160 Balance 116 538 0602 1160 Weight 145 lb 1.6 oz Intake: IV Fluids 200 500 859 NS (0.9%) 859 IVPB 60 ABX - CEFTRIAXONE 60 Oral 60 531 [id number] [id number] Other: Estimated Void Medium Large Medium # Voids 1 1 1 - Review of Systems Constitutional Symptoms: Negative: Fever, Other - Chills Dermatology: Positive: Other - Wound to buttocks Objective Active Medications: Acetaminophen (Tylenol Tab*) 650 mg PO Q6H PRN Reason: PAIN - MILD Acetaminophen (Tylenol Tab*) 975 mg PO BID [facility] Albuterol (Ventolin Hfa Inhaler*) 2 puff INH Q4H PRN Reason: SHORTNESS OF BREATH Albuterol/Ipratropium (Duoneb (Albuterol 2.5 Mg/Ipratropium 0.5 Mg)) 1 neb INH Q4H PRN Reason: SOB/WHEEZING Amlodipine Besylate (Norvasc Tab*) 5 mg PO DAILY [facility] Bisacodyl (Dulcolax Supp*) 10 mg [place] DAILY PRN Reason: CONSTIPATION Capsaicin (Zostrix 0.025% Cream*) 1 applic TOPICAL TID [facility] Clotrimazole (Clotrimazole 1%*) 1 applic TOPICAL DAILY [facility] Cyclobenzaprine HCl (Flexeril Tab*) 10 mg PO TID [facility] Diphenhydramine HCl (Benadryl Po*) 25 mg PO BEDTIME PRN Reason: INSOMNIA Doxycycline Hyclate (Vibramycin Cap(*)) 100 mg PO BID [facility] Escitalopram Oxalate (Lexapro *) 5 mg PO DAILY [facility] Heparin Sodium (Porcine) (Heparin Vial(*)) 5,000 units SUBCUT Q12HR [facility] Ceftriaxone Sodium 1 gm/ (Sodium Chloride) 50 mls @ 100 mls/hr IVPB Q24H [facility] Levothyroxine Sodium (Synthroid Tab*) 88 mcg PO 0600 [facility] Lidocaine (Lidoderm 5% Patch*) 1 patch TRANSDERM DAILY [facility] Magnesium Hydroxide (Milk Of Magnesia Liq*) 30 ml PO DAILY PRN Reason: CONSTIPATION Metoprolol Tartrate (Lopressor Tab*) 25 mg PO BID [facility] Mirabegron (Myrbetriq (Nf)) 25 mg PO DAILY [facility] Oxycodone HCl (Roxycodone Tab*) 5 mg PO TID [facility] Pharmacy Profile Note (Lidocaine Patch Remove*) 1 note N/A 2100 [facility] Polyethylene Glycol/Electrolytes (Miralax*) 17 gm PO DAILY [facility] Pregabalin (Lyrica 25 Mg Cap (*)) 25 mg PO BEDTIME [facility] Quetiapine Fumarate (Seroquel Tab*) 25 mg PO BEDTIME [facility] Senna (Senokot 8.6 Mg Tab*) 1 tab PO DAILY [facility] Trazodone HCl (Desyrel Tab*) 50 mg PO BEDTIME [facility] Vital Signs 04/30/19 04/30/19 04/30/19 10:18 11:10 12:47 Temperature 98.6 F Pulse Rate 101 Respiratory 18 16 18 Rate Blood Pressure 147/61 (mmHg) O2 Sat by Pulse 95 Oximetry Oxygen Devices in Use Now: Nasal Cannula Appearance: NAD, laying in bed Ears/Nose/Mouth/Throat: Mucous Membranes Moist Respiratory: Symmetrical Chest Expansion and Respiratory Effort Extremities: - - 1+ bilateral DP pulses Skin: - - See skin note below Neurological: - - Alert and Oriented to person Result Diagrams: 04/30/19 05:58 04/30/19 05:58 Additional Lab and Data: Laboratory Tests 04/27/19 04/30/19 04/30/19 12:10 05:58 05:58 WBC 7.0 Hgb 10.6 L Hct 32 L Plt Count 309 Sodium 140 Potassium 3.9 Chloride 110 Carbon Dioxide 25 BUN 25 H Creatinine 0.39 L Glucose 95 C-Reactive Protein 129.59 H Total Protein 6.6 Albumin 3.3 Skin Deviation Note - Skin Deviation Findings Left sacral area - There is a wound, measures 0.8 cm x 0.7 cm x 3 cm at 11 o' clock. The surrounding skin is intact, slightly macerated. There is scant drainage. Left foot - There is an area of dark discoloration, measures 2.3 cm x 2.5 cm. There is no fluctulance or induration. The surrounding skin is intact. There is no drainage. Wound Problem/Plan Assessment: Ms. Lamar is an 84 yo female with PMH significant for dementia, personality disorder, severe , HTN, asthma, and COPD; she presented to the emergency room with complaints of hypoxia and altered mental status. She was admitted to the hospital for acute hypoxic respiratory failure, sepsis, and PNA. 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 1. Left sacral wound. This wound has been present for at least 208. The wound has been treated by the wound care provider at [facility]. Was last debrided 04/16/19. Recommend gently packing the wound with iodoform 1/4 inch gauze and cover with a nonadherent dressing (i.e. Telfa), paper tape and change daily and as needed for soiling. Due to length of time that this has been present, should consider MRI to evaluate for underlying osteomyelitis. Frequent turning and repositioning. Will add a prealbumin to the last labs to evaluate nutritional status. She should not be up in a chair for more than 1-2 hours at a time. 2. Left lateral foot deep tissue injury. Keep the foot elevated off the bed and avoid pressure to the area. 3. Diet. Heart Healthy Diet. 4. Code Status. DNR. 5. Disposition. Inpatient, disposition per primary medicine team. TIME SPENT: Time for this wound culture was 25 minutes and 15 minutes was spent with the patient discussing past medical history; removing the old dressing; assessing, measuring, and photographing the wound; and reapplying a new dressing. Is Patient a Wound Clinic Patient: No Attending: Isabella Palumbo
[2019-04-30] MEDS: traZODone TAB* 50 MG TAB PO SCH (21:38)
[2019-04-30] MEDS: Pregabalin 25 mg CAP (*) PO SCH ×2 (21:39→21:52)
[2019-04-30] MEDS: QUEtiapine TAB* 25 MG PO SCH (21:40)
[2019-04-30] MEDS: Lidocaine Patch REMOVE* 1 NOTE MISC SCH (21:56)
[2019-05-01] MEDS: Acetaminophen TAB* 325 MG PO PRN (02:39)
[2019-05-01] MEDS: diPHENhydraMINE PO* 25 MG PO PRN (02:39)
[2019-05-01] MEDS: Levothyroxine TAB* 88 MCG TAB PO SCH (05:33)
[2019-05-01 12:31] LABS: Hematocrit 34 % (35-47); Hemoglobin 11.3 g/dL (12.0-16.0); Mean Corpuscular HGB Conc 33 g/dL (31-36); Mean Corpuscular Hemoglobin 29 pg (27-31); Mean Corpuscular Volume 86 fL (80-97); Mean Platelet Volume 7.6 fL (7.4-10.4); Platelet Count 340 10^3/uL (150-450); Red Blood Count 3.98 10^6 /uL (3.70-4.87); Red Cell Distribution Width 16 % (10-15); White Blood Count 7.6 10^3/uL (3.5-10.8)
[2019-05-01 12:48] LABS: BUN/Creatinine Ratio 68.4 (8-20); Calcium 8.7 mg/dL (8.6-10.3); EGFR African American 195.2 (>60); EGFR Non-African American 161.3 (>60)
[2019-05-01 13:27] LABS: ABS Basophils 0.1 10^3/ul (0-0.2); ABS Eosinophils 0.1 10^3/ul (0-0.6); ABS Lymphocytes 0.8 10^3/ul (1.0-4.8); ABS Monocytes 0.7 10^3/ul (0-0.8); ABS Neutrophils 5.8 10^3/ul (1.5-7.7); Eosinophil % 1.8 %; Lymphocyte % 10.9 %
[2019-05-01] MEDS: Capsaicin 0.025% CREAM* 60 GM TOPICAL SCH (14:23)
[2019-05-01] MEDS: Clotrimazole 1% CREAM* 45 GM TOPICAL SCH (14:23)
[2019-05-01] MEDS: Cyclobenzaprine TAB* 10 MG PO SCH ×2 (14:24→14:31)
[2019-05-01] MEDS: Heparin VIAL(*) 5000 UNITS/ML VIAL (FIVE THOUSAND) SUBCUT SCH (14:24)
[2019-05-01] MEDS: oxyCODONE TAB* 5 MG TAB PO SCH ×2 (14:25→14:32)
[2019-05-01] MEDS: NF:Mirabegron (NF) 25 MG TAB PO SCH (14:25)
[2019-05-01] MEDS: Senna TAB 8.6 mg* TAB PO SCH (14:25)
[2019-05-01] MEDS: Polyethylene Glycol 3350* 17 GM PACKET PO SCH (14:25)
[2019-05-01] MEDS: Acetaminophen TAB* 325 MG PO SCH (14:31)
[2019-05-01] MEDS: DOXYcycline CAP(*) 100 MG PO SCH (14:31)
[2019-05-01] MEDS: Escitalopram * 5 MG TAB PO SCH (14:31)
[2019-05-01] MEDS: amLODIPine TAB* 5 MG PO SCH (14:32)
[2019-05-01] MEDS: Metoprolol Tartrate TAB* 25 MG PO SCH (14:32)
[2019-05-01] MEDS: Lidocaine PATCH 5%* 1 PATCH TRANSDERM SCH (14:33)
--- NOTE | 2019-05-01 14:50 | DS ---
CC: [facility] * DISCHARGE SUMMARY: DATE OF ADMISSION: 04/27/19 DATE OF DISCHARGE: 05/01/19 DISCHARGE DIAGNOSES: 1. Acute hypoxemic respiratory failure. 2. Severe sepsis. 3. Right upper lobe pneumonia. 4. Left foot pressure injury. 5. Delirium. 6. Severe protein-calorie malnutrition. SECONDARY DIAGNOSES: 1. Dementia. 2. Personality disorder. 3. Severe to critical aortic stenosis. 4. Hypertension. 5. Asthma. 6. Sacral decubitus ulcer. MEDICATION LIST: 1. Acetaminophen 975 mg p.o. b.i.d. and 650 mg p.o. q.6 hours p.r.n. pain or fever to a maximum of 4 g of acetaminophen a day. 2. Albuterol HFA 2 puffs inhaled q.4 hours p.r.n. shortness of breath. 3. Amlodipine 5 mg p.o. daily. 4. Dulcolax suppository 1 per rectum daily as needed for constipation. 5. Capsaicin 0.025% cream topical t.i.d. 6. Clotrimazole 1% topical daily. 7. Cyclobenzaprine 10 mg p.o. t.i.d. 8. Escitalopram 5 mg p.o. daily. 9. Levothyroxine 88 mcg p.o. daily. 10. Lidocaine 1 patch topical daily. 11. Milk of magnesia 30 mL p.o. daily as needed for constipation. 12. Metoprolol tartrate 25 mg p.o. b.i.d. 13. Myrbetriq 25 mg p.o. daily. 14. Olopatadine 0.1% one drop to both eyes daily. 15. Ondansetron 4 mg p.o. q.4 hours p.r.n. nausea. 16. Oxycodone 5 mg p.o. t.i.d. 17. MiraLAX 17 g p.o. daily. 18. Lyrica 25 mg p.o. at bedtime. 19. Seroquel 25 mg p.o. at bedtime. 20. Senna 1 tablet p.o. daily. 21. Trazodone 50 mg p.o. at bedtime. New medication: 1. Doxycycline 100 mg p.o. b.i.d. for 3 more days. HOSPITAL COURSE: Ms. Lamar is an 84-year-old female with a past medical history as stated above, who was sent to the emergency room on 04/27/19 with hypoxia and altered mental status. As per HPI, the patient was noted to be dusky, diaphoretic and hallucinating and her oxygen saturation was 88%. For more details about her presentation, I refer you to her history and physical. Her workup in the emergency room included a chest x-ray that showed a right upper lobe infiltrate. The patient was admitted for further management. A CT of the abdomen and pelvis showed periumbilical hernia containing fat with no stranding noted, prominent extra and intrahepatic ducts likely due to post cholecystectomy state, and there is likely a sacral decubitus ulcer with underlying edema and scant fluid noted just left of midline at the distal tip of the sacrum and coccyx with small foci of air and fluid are noted presumably within the gluteus muscle. CT of the brain without contrast showed atrophy with no evidence of intracranial mass or hemorrhage. The patient's blood cultures yielded no growth. The patient's oxygen requirements while in the hospital increased up to 4.5 L and now with antibiotic therapy she has had progressive improvement and requires 2 L of supplemental oxygen. The patient was also seen in consultation by Wound Care and as per report the patient has a chronic sacral wound that has been present for more than 200 days according to documentation from [facility]. She also has an area of dark discoloration on her left foot. The recommendation was to gently pack the wound with iodoform one-quarter of an inch gauze and cover with a non-adherent dressing like Telfa, paper tape and change daily as needed for soiling. As the patient has had this wound for such a long time, they also recommended consideration for an MRI to evaluate for underlying osteomyelitis especially considering the findings on her CT. They also recommended checking her prealbumin level and that was low at 5. For the left foot deep tissue injury, the recommendation was to keep the foot elevated off the bed and avoid pressure to the area. The patient's respiratory status has improved. She will complete her pneumonia treatment and further workup of her wound can be pursued as an outpatient depending on her [facility] attending's opinion. PHYSICAL EXAMINATION: Vital Signs: Temperature 97.8, heart rate is 90, respiratory rate is 16, oxygen saturation 95% on 2 L nasal cannula, blood pressure is 118/46. General: The patient is an elderly lady, lying in bed, in no acute distress. HEENT: Pupils are equal. Moist mucous membranes. CVS: Normal S1, S2. Regular rate and rhythm. Chest: Breath sounds present bilaterally with no added sounds. Abdomen is soft, nontender. Bowel sounds present. Neuro: The patient is alert, awake, and oriented x2 to self and place. DIET: Heart-healthy diet. ACTIVITIES: As tolerated. DISPOSITION: Back to [facility]. STATUS WHILE IN THE HOSPITAL: Inpatient. Please keep in mind that this is a summarized version of this patient's hospital stay. If you need more information, please feel free to call me at or please obtain full medical records. TIME SPENT: Approximately 50 minutes was spent to complete this discharge. [id number]/CPS #: [id number] MTDD
[2019-05-01 15:16] VITALS: BP 114/50
== END 2019-05-01 15:53 | DRG 871 ==
LOC: ED 11:53 → MEDTELE 14:45 → OBSVTOIN 04-28 10:55
PROVIDERS: ADMIT Internal Medicine; ATTEND Internal Medicine
DX: A41.9 Sepsis, unspecified organism (principal); L89.324 Pressure ulcer of left buttock, stage 4; J96.01 Acute respiratory failure with hypoxia; J18.9 Pneumonia, unspecified organism; E43 Unspecified severe protein-calorie malnutrition; M62.82 Rhabdomyolysis; F03.91 Unspecified dementia, unspecified severity, with behavioral disturbance; F05 Delirium due to known physiological condition; R65.20 Severe sepsis without septic shock; L89.159 Pressure ulcer of sacral region, unspecified stage; L89.896 Pressure-induced deep tissue damage of other site; I10 Essential (primary) hypertension; J45.909 Unspecified asthma, uncomplicated; I35.0 Nonrheumatic aortic (valve) stenosis; R32 Unspecified urinary incontinence; R74.8 Abnormal levels of other serum enzymes; F41.9 Anxiety disorder, unspecified; F60.9 Personality disorder, unspecified; K42.9 Umbilical hernia without obstruction or gangrene; Z68.24 Body mass index [BMI] 24.0-24.9, adult; Z79.1 Long term (current) use of non-steroidal anti-inflammatories (NSAID); Z79.891 Long term (current) use of opiate analgesic; Z79.899 Other long term (current) drug therapy; Z88.5 Allergy status to narcotic agent; Z88.0 Allergy status to penicillin
CPT/HCPCS: 36415; 70450; 71045; 74177; 80048; 80053; 82550; 82803; 83605; 83690; 83880; 84134; 84439; 84443; 84484; 85025; 85060; 85610; 86140; 87040; 87641; 93005; 96374; 99285; A9270-GY; G0378; J0692; J0696; J1644; J2270; J2405; J3480; Q9967

== ENCOUNTER 2019-05-06 06:10 | Inpatient (IN) | payer MEDICARE ==
--- NOTE | 2019-05-06 06:19 | ED ---
Altered Mental Status - HPI Summary HPI Summary: The patient is an 84 y/o female arriving by ambulance to [facility] from [facility] with AMS with unknown time period. Per EMS, there is concern for sepsis as the patient was febrile at 103.1F with tachycardia and hypotension. Patient was recently diagnosed with PNA, and EMS auscultated fluid in the lungs. She was discharged from the hospital on 04/28/2019. PMHx: thyroid disease, HTN, valvular heart disease, aortic stenosis. Nonsmoker, no EtOH, no substance use. Medications reviewed. Allergies noted. Patient presents moaning in the stretcher unable to provide any history. Level 5 Caveat secondary to dementia and AMS. History obtained from EMS and medical records. Patient does not have any family locally. She has signed her MOLST form herself a year ago, but there is no current indication of her code status, although she has a health proxy on file that had not been successful in being contacted when the patient was last in the hospital. - History Of Current Complaint Stated Complaint: GENERAL ILLNESS PER EMS Time Seen by Provider: 05/06/19 06:15 Hx Obtained From: EMS, Medical Records Hx From Patient Unobtainable Due To: Altered Mental Status - Level 5 Caveat Onset/Duration: Unknown Severity Currently: Severe Associated Signs And Symptoms: Positive: Fever - Allergies/Home Medications Allergies/Adverse Reactions: Allergies Allergy/AdvReac Type Severity Reaction Status Date / Time Opioids - Morphine Analogues Allergy Intermediate Vomiting Verified 05/06/19 08: 03 codeine Allergy Unknown Unknown Verified 05/06/19 08:03 Reaction Details Penicillins Allergy Unknown Unknown Verified 05/06/19 08:03 Reaction Details Home Medications: Home Medications Ipratropium/Albuterol Sulfate [Iprat-Albut 0.5-3(2.5) mg/3 ml] 3 ml IH Q4H PRN 05/06/19 [History Confirmed 05/06/19] Lidocaine [Aspercreme Lidocaine Max] 4 % EX DAILY 05/06/19 [History Confirmed ] Mirabegron (NF) [Myrbetriq (NF)] 25 mg PO DAILY 05/06/19 [History Confirmed ] Polyethylene Glycol 3350 [Glycolax] 1 pow PO DAILY 05/06/19 [History Confirmed 05/06/19] PMH/Surg Hx/FS Hx/Imm Hx Endocrine/Hematology History: Reports: Hx Thyroid Disease Denies: Hx Diabetes Cardiovascular History: Reports: Hx Hypertension, Hx Valvular Heart Disease - mild , per pt , Other Cardiovascular Problems/Disorders - MILD AORTIC STENOSIS PER PT Respiratory History: Reports: Hx Asthma Denies: Hx Chronic Obstructive Pulmonary Disease (COPD) GI History: Denies: Hx Ulcer History: Denies: Hx Renal Disease Musculoskeletal History: Reports: Hx Arthritis - KNEES Sensory History: Reports: Hx Cataracts - BILAT, Hx Contacts or Glasses Denies: Hx Hearing Aid Opthamlomology History: Reports: Hx Cataracts - BILAT, Hx Contacts or Glasses Neurological History: Reports: Hx Dementia Psychiatric History: Reports: Hx Anxiety, Other Psychiatric Issues/Disorders - Borderline personality disorder - Surgical History Surgical History: Yes Surgery Procedure, Year, and Place: THYROIDECTOMY, GALL BLADDER REMOVED, appendectomy, right knee replacement Hx Anesthesia Reactions: No Infectious Disease History: Denies: Hx Clostridium Difficile, Hx Hepatitis, Hx Human Immunodeficiency Virus (HIV), Hx of Known/Suspected MRSA, Hx Shingles, Hx Tuberculosis, Hx Known/ Suspected VRE, Hx Known/Suspected VRSA, History Other Infectious Disease, Traveled Outside the [place] in Last 30 Days - Family History Known Family History: Positive: Cardiac Disease - CHF, Hypertension, Diabetes - Social History Alcohol Use: None Hx Substance Use: No Substance Use Type: Reports: None Hx Tobacco Use: No Smoking Status (MU): Never Smoked Tobacco Review of Systems Positive: Fever Positive: Other - tachycardia All Other Systems Reviewed And Are Negative: No - Comments Additional Review of Systems Comments: Level 5 Caveat secondary to dementia and AMS. Physical Exam - Summary Physical Exam Summary: Appearance: Elderly, Chronically ill-appearing, Moaning, Appearing uncomfortable , Contracted Skin: Warm, dry, no obvious rash Eyes: sclera anicteric, no conjunctival pallor ENT: mucous membranes moist Neck: deferred Respiratory: No signs of respiratory distress Cardiovascular: Appears well perfused, pulses are nml Abdomen: deferred Musculoskeletal: Contracted Neurological: Nonverbal and not responding to questions Psychiatric: Moaning in pain Triage Information Reviewed: Yes Vital Signs Reviewed: Yes Completion Of Physical Exam Limited Due To: Dementia, Altered Mental Status, Level 5 Procedures - Sedation Patient Received Moderate/Deep Sedation with Procedure: No Diagnostics - Laboratory Result Diagrams: 05/06/19 06:34 05/06/19 06:34 Lab Statement: Any lab studies that have been ordered have been reviewed, and results considered in the medical decision making process. - EKG 0619 Cardiac Rate: Other Rate - 191 BPM Summary of EKG Findings: Rate of 191 BPM, wide complex with irregularities, either sinus tachycardia or atrial fibrillation with RVR. ED physician has reviewed and interpreted this EKG. Re-Evaluation - Re-Evaluation First Eval Re-Evaluation Time: 06:20 Comment: Per nurse, patient has temperature of 105.1F rectally. Altered Mental Statu Course/Dx - Course Course Of Treatment: 84 y/o female presenting by ambulance from [facility] with concern for sepsis and AMS with fever, tachycardia, and hypotension en route. Patient unable to provide any history at this time. Recently discharged from [facility] on 04/28/19 with PNA. Physical exam reveals patient to be elderly, contracted, chronically ill-appearing, moaning, appearing uncomfortable but otherwise nonverbal and not responding to questions. We attempted to reach health proxy concerning the patient's curernt code status, but it went to the answering machine. I spoke with Dr. Zavala, who will pass along the patient's case. Patient was administered fluids and Tylenol for fever. EKG at 0619 reveals rate of 191 BPM, wide complex with irregularities, either sinus tachycardia or atrial fibrillation with RVR. Patient is a sign-out to Dr. Derrick Weldon MD, at 0700 on 05/06/2019, pending labs, CXR, and disposition. - Diagnoses Provider Diagnoses: Fever, Sepsis, Respiratory distress - Provider Notifications Discussed Care Of Patient With: Kenia Zavala - hospitalist Time Discussed With Above Provider: 06:30 Instructed by Provider To: Other - I discussed the patients case with Dr. Zavala , who is aware of the patient's case and will pass along her information. - Critical Care Time Critical Care Time: 30-74 min Discharge ED - Sign-Out/Discharge Documenting (check all that apply): Sign-Out Patient Signing out patient TO: Derrick Weldon - Patient is a sign-out to Dr. Derrick Weldon MD, at 0700 on 05/06/2019, pending labs, CXR, and disposition. - Discharge Plan Condition: Critical Disposition: ADMITTED TO [facility] - Billing Disposition and Condition Condition: CRITICAL Disposition: Admitted to [facility] - Attestation Statements Document Initiated by Diya: Yes Documenting Scribe: Susanne Rabago Provider For Whom Diya is Documenting (Include Credential): Dr. Suraj Blue MD Scribe Attestation: Susanne Candelaria, scribed for Dr. Suraj Blue MD on 05/09/19 at 1934. Scribe Documentation Reviewed: Yes Provider Attestation: The documentation as recorded by the Susanne hill accurately reflects the service I personally performed and the decisions made by me, Dr. Suraj Blue MD Status of Scribe Document: Viewed
[2019-05-06] MEDS: NS 0.9% 1000 ML** 1,000 ML IV.FLUID IV ONE ×2 (06:27→06:55)
[2019-05-06 06:47] LABS: ABS Basophils 0.1 10^3/ul (0-0.2); ABS Eosinophils 0.1 10^3/ul (0-0.6); ABS Lymphocytes 1.3 10^3/ul (1.0-4.8); ABS Monocytes 1.1 10^3/ul (0-0.8); ABS Neutrophils 6.5 10^3/ul (1.5-7.7); Eosinophil % 0.7 %; Hematocrit 36 % (35-47); Hemoglobin 11.9 g/dL (12.0-16.0); Lymphocyte % 14.8 %; Mean Corpuscular HGB Conc 34 g/dL (31-36); Mean Corpuscular Hemoglobin 29 pg (27-31); Mean Corpuscular Volume 86 fL (80-97); Platelet Count 393 10^3/uL (150-450); Red Blood Count 4.13 10^6 /uL (3.70-4.87); Red Cell Distribution Width 17 % (10-15)
[2019-05-06 07:00] LABS: Activated Partial Thrombo Time 54.1 seconds (26.0-38.0); INR 1.46 (0.82-1.09)
[2019-05-06] MEDS ORDERED: metroNIDAZOLE IV 500 MG/100ML* 500 MG/100 ML BAG IVPB ONE (07:00)
[2019-05-06] MEDS ORDERED: Ciprofloxacin 400MG IVPREMIX(* 400 MG/200 ML BAG IVPB ONE (07:00)
[2019-05-06] MEDS ORDERED: Vancomycin(*) 1,000 MG VIAL IVPB SCH (07:00)
[2019-05-06 07:03] LABS: ALT 16 U/L (7-52); AST 23 U/L (13-39); Albumin 3.2 g/dL (3.2-5.2); Alkaline Phosphatase 62 U/L (34-104); Anion Gap 9 mmol/L (2-11); BUN/Creatinine Ratio 54.2 (8-20); Blood Urea Nitrogen 39 mg/dL (6-24); CO2 Carbon Dioxide 26 mmol/L (22-32); Calcium 9.2 mg/dL (8.6-10.3); Chloride 107 mmol/L (101-111); EGFR African American 93.4 (>60); EGFR Non-African American 77.2 (>60); Globulin 3.3 g/dL (2-4); Glucose 152 mg/dL (70-100); Potassium 3.9 mmol/L (3.5-5.0); Sodium 142 mmol/L (135-145); Total Protein 6.5 g/dL (6.4-8.9)
--- NOTE | 2019-05-06 07:09 | ED ---
Progress - Progress Note Progress Note: This pt is a sign out to Dr. Weldon from Dr. Blue at shift change 0700 05/06 pending labs, CXR, and dispo. 7:15 I asked the patient's care with her friend Mohan Arita who is her POA. Per Mohan, patient does not want any significant interventions. He states he does not believe she would want intubation or CPR although she has not specifically stated this. patient covered broadly for infectious causes with Cipro, Flagyl, vancomycin. Patient given 3 L of fluids total. Patient given hypoxic to 80%, placed on nonrebreather, placed on Vapotherm. Patient O2 saturation up to 92, heart rate in the 120s. Patient's lactic acid was slightly elevated, troponin 0.08. Patient to be admitted to the ICU, discussed with Dr. Oliva Upon my evaluation, this patient had a high probability of imminent or life- threatening deterioration due to hypoxic respiratory failure, sepsis, which required my direct attention, intervention, and personal management. I have personally provided 75 minutes of critical care time exclusive of time spent on separately billable procedures. Time includes review of laboratory data , radiology results, discussion with consultants, and monitoring for potential decompensation. Interventions were performed as documented above. - Results/Orders Results/Orders: CXR shows: INCREASED DENSITY IN THE RIGHT PERIHILAR REGION. RECOMMEND FOLLOW-UP CHEST X-RAYS TO RESOLUTION. ED physician has reviewed this report. Re-Evaluation - Re-Evaluation First Eval Re-Evaluation Time: 07:35 Change: Unchanged Comment: Dr. Hodges is in the room reviewing if the pt is a suitable canidate for the ICU. Second Eval Re-Evaluation Time: 07:53 Change: Worse Comment: Pt was hypoxic at 80. Placed on face mask at 10 L and nasal canula at 5L. Dr. Oliva will be consulted to discuss admission to the ICU for further treatments. Course/Dx - Course Course Of Treatment: This pt is a sign out to Dr. Weldon from Dr. Blue at shift change 0700 05/06/2019 pending labs, CXR, and dispo. - Diagnoses Provider Diagnoses: Fever, Sepsis, Respiratory distress - Provider Notifications Discussed Care Of Patient With: Dayday Oliva Time Discussed With Above Provider: 08:03 Instructed by Provider To: Admit As Inpatient Discharge ED - Sign-Out/Discharge Documenting (check all that apply): Patient Departure - admitted to ICU - Discharge Plan Condition: Critical Disposition: ADMITTED TO [facility] - Billing Disposition and Condition Condition: CRITICAL Disposition: Admitted to [facility] - Attestation Statements Document Initiated by Diya: Yes Documenting Scribe: Charles Avelar Provider For Whom Diya is Documenting (Include Credential): Derrick Weldon MD Scribe Attestation: Charles Candelaria, scribed for Derrick Weldon MD on 05/06/19 at 0923. Scribe Documentation Reviewed: Yes Provider Attestation: The documentation as recorded by the Charles hill accurately reflects the service I personally performed and the decisions made by Derrick jeong MD Status of Scribe Document: Viewed
[2019-05-06] MEDS ORDERED: Vancomycin(*) 1,250 MG IV x ONCE IVPB ONE ×2 (07:15)
[2019-05-06 07:21] LABS: Troponin I 0.08 ng/mL (<0.03)
[2019-05-06 07:28] LABS: TSH (Thyroid Stimulating Horm) 0.55 mcIU/mL (0.34-5.60)
[2019-05-06 07:30] LABS: Free T4 1.05 ng/dL (0.61-1.12)
[2019-05-06] MEDS ORDERED: NS 0.9% 1000 ML** 1,000 ML IV.FLUID IV ONE (07:56)
[2019-05-06 08:03] LABS: Influenza A Molecular NEGATIVE (Negative); Influenza B Molecular NEGATIVE (Negative)
[2019-05-06] MEDS ORDERED: Ketorolac INJ* 30 MG/ML 1 ML VIAL IV ONE (08:30)
[2019-05-06] MEDS ORDERED: NS 0.9% 250 ML* 250 ML ONE (08:31)
[2019-05-06] MEDS ORDERED: Levalbuterol 0.63MG/3ML NEB* UNIT OF USE INH ONE (08:36)
[2019-05-06] MEDS ORDERED: Albuterol HFA INHALER* 8 gm MDI INH PRN (08:52)
[2019-05-06] MEDS ORDERED: oxyCODONE TAB* 5 MG TAB PO PRN (08:52)
[2019-05-06] MEDS ORDERED: Clotrimazole 1% CREAM* 45 GM TOPICAL SCH (09:00)
[2019-05-06] MEDS ORDERED: Olopatadine 0.1% OPHTH (NF) 1 DROP BTL BOTH EYES SCH (09:00)
[2019-05-06] MEDS ORDERED: Enoxaparin(*) 40 MG/0.4 ML SYR SUBCUT SCH (09:00)
[2019-05-06] MEDS ORDERED: Norepinephrine 16MCG/ML IVPRE* 4,000 MCG/250 ML BAG IV SCH (09:00)
[2019-05-06] MEDS ORDERED: Mirabegron (NF) 25 MG TAB PO SCH ×2 (09:00)
[2019-05-06] MEDS ORDERED: Escitalopram * 10 MG TAB PO SCH (09:00)
[2019-05-06] MEDS ORDERED: Norepinephrine 16MCG/ML IVPRE* 4,000 MCG/250 ML BAG IV ONE (09:01)
[2019-05-06 09:28] LABS: Troponin I 0.16 ng/mL (<0.03)
[2019-05-06 09:53] LABS: Urine Appearance Cloudy; Urine Bilirubin Negative (Negative); Urine Blood Negative (Negative); Urine Color Amber; Urine Glucose Negative (Negative); Urine Ketones Negative (Negative); Urine Nitrite Negative (Negative); Urine Protein 2+(100 mg/dL) (Negative); Urine Urobilinogen Negative (Negative)
[2019-05-06] MEDS ORDERED: Amiodarone IV VIAL** 50 MG/ML 3 ML (150 MG) VIAL IV PUSH ONE ×2 (09:53→16:29)
[2019-05-06] MEDS ORDERED: Amiodarone IV VIAL** 50 MG/ML 3 ML (150 MG) VIAL ONE (09:57)
[2019-05-06 10:00] LABS: Urine Bacteria Absent (Absent); Urine Red Blood Cell 1+(3-5/hpf) (Absent); Urine Squamous Epithelial Cell Present (Absent); Urine White Blood Cell 1+(6-10/hpf) (Absent)
[2019-05-06] MEDS ORDERED: Levothyroxine TAB* 88 MCG TAB PO SCH (10:00)
[2019-05-06] MEDS ORDERED: Ondansetron INJ* 2 MG/ML VIAL ONE (10:06)
[2019-05-06] MEDS ORDERED: Morphine INJ* 2 MG/ML 1 ML SYRINGE (TWO MG - NEW SYRINGE VERSION) ONE (10:06)
[2019-05-06] MEDS: Ondansetron INJ* 2 MG/ML VIAL IV PRN ×3 (10:07→22:08)
[2019-05-06] MEDS: Morphine INJ* 2 MG/ML 1 ML SYRINGE (TWO MG - NEW SYRINGE VERSION) IV PRN ×4 (10:08→22:08)
[2019-05-06] MEDS ORDERED: Amiodarone 360 MG IVPREMIX* 360 MG/200 ML BAG IV ONE (10:45)
[2019-05-06] MEDS: Metoprolol Tartrate TAB* 25 MG PO SCH ×2 (10:47→20:14)
[2019-05-06] MEDS ORDERED: Levalbuterol 0.63MG/3ML NEB* UNIT OF USE INH PRN (11:05)
[2019-05-06] MEDS ORDERED: Digoxin IV* 0.5 MG/2 ML AMP (0.25 MG/ML) IV SLOW PU ONE (11:42)
[2019-05-06] MEDS ORDERED: LORazepam INJ* 2 MG/ML 1 ML VIAL IV PUSH ONE (11:45)
[2019-05-06] MEDS ORDERED: Lorazepam PYXIS KEY PRN ×2 (11:45→23:53)
[2019-05-06] MEDS ORDERED: Lorazepam PYXIS KEY ONE (11:49)
[2019-05-06] MEDS ORDERED: LORazepam INJ* 2 MG/ML 1 ML VIAL ONE (11:50)
[2019-05-06] MEDS: Aztreonam (*) 2 GM in NS 0.9% 100 ML* 100 ML IV SCH ×2 (11:59→20:07)
[2019-05-06] MEDS: Phenylephrine 10 MG/ML VIAL* 50 MG in NS 0.9% 250 ML* 245 ML IV SCH ×2 (12:12→22:17)
[2019-05-06] MEDS ORDERED: Amiodarone IV VIAL** 50 MG/ML 3 ML (150 MG) VIAL SLOW PUSH ONE (12:14)
--- NOTE | 2019-05-06 13:24 | HP ---
ADMISSION HISTORY AND PHYSICAL: DATE OF ADMISSION: 05/06/19 PRIMARY CARE PROVIDER: Dr. Tori Hodges at [facility]. ATTENDING FOR THIS ADMISSION: Dr. Dayday Oliva.* (DICTATED BY GRACE REYES NP) CHIEF COMPLAINT: Hypoxia and altered mental status. HISTORY OF PRESENT ILLNESS: Ms. Lamar is an 84-year-old female patient who was just recently hospitalized from 04/27/19 through 05/01/19 for hypoxemic respiratory failure and pneumonia. The patient was transferred back to [facility] where she resides; however, the patient started to have some fever and there was concern for sepsis when she became tachycardic and hypotensive. In the ED, the patient was noted to have a very high heart rate, between the 180s to max heart rate of 201, temperature was 105 with a lactic acid of 2.3. She is encephalopathic and in severe respiratory distress. The patient was placed on Vapotherm in the emergency department and they reached out to the ICU for admission for septic shock and respiratory failure. PAST MEDICAL HISTORY: Significant for hypertension, asthma, critical aortic stenosis, dementia, personality disorder, osteoarthritis, chronic pain, and hypothyroidism. PAST SURGICAL HISTORY: Significant for thyroidectomy, cholecystectomy, appendectomy, and a right knee replacement. HOME MEDICATIONS: Include: 1. Amlodipine 5 mg p.o. daily. 2. Lidocaine patch to each knee daily. 3. Lexapro 5 mg p.o. daily. 4. Senna 1 tab p.o. daily. 5. Pregabalin 25 mg p.o. at bedtime. 6. Myrbetriq 25 mg p.o. daily. 7. Levothyroxine 88 mcg p.o. daily. 8. Capsaicin topical cream 3 times a day as needed. 9. Seroquel 25 mg at bedtime. 10. MiraLAX 17 g p.o. daily as needed. 11. Olopatadine ophthalmic 0.1% one drop each eye daily. 12. Clotrimazole cream topical daily. 13. Zofran 4 mg orally as needed. 14. Albuterol inhaler q.4 hours as needed. 15. Tylenol 650 mg p.o. q.4 hours as needed. 16. Metoprolol tartrate 25 mg p.o. b.i.d. 17. Milk of magnesia 30 mL p.o. daily as needed. 18. Dulcolax suppository daily as needed. 19. Trazodone 50 mg p.o. at bedtime. 20. Oxycodone 5 mg p.o. 3 times a day. 21. Cyclobenzaprine 10 mg p.o. 3 times a day. ALLERGIES: The patient has allergies to OPIOIDS, which include nausea and vomiting; however, she does take chronic opioids at home; AVELOX; CODEINE; and PENICILLIN. FAMILY HISTORY: Per the ER record, it is positive for cardiac disease, CHF, hypertension, and diabetes; however, it is not known which family members have these diseases. Level 5 caveat is, the patient is currently encephalopathic. SOCIAL HISTORY: Again, per the record, no history of alcohol use, no history of substance abuse, no history of tobacco abuse. REVIEW OF SYSTEMS: Unable to obtain secondary to altered mental status, although the patient can answer yes or no to some simple questions. PHYSICAL EXAMINATION GENERAL: The patient is ill-appearing and in a moderate amount of distress, does yell out at times. VITAL SIGNS: Currently are blood pressure 77/45, heart rate 160, respiratory rate 27, O2 saturation 88% on Vapotherm with a temperature of 101.1 down from 105.1. HEENT: The patient is atraumatic, normocephalic. PERRLA. Nonicteric sclerae. Oral mucosa is dry. Tongue is midline. NECK: Supple, nontender. No JVD noted. No carotid bruit auscultated. LUNGS: Rhonchorous bilaterally with bilateral inspiratory and expiratory wheezing. She is tachypneic. CARDIOVASCULAR: S1, S2 present. Rate is extremely tachycardic and irregular. Systolic murmur noted, grade 3/6. ABDOMEN: Soft, nontender, nondistended. Positive bowel sounds in all 4 quadrants. : A Chapman catheter has been placed, draining clear yellow urine. MUSCULOSKELETAL: There is +1 edema of the lower extremities. She has wounds to the lateral aspect with some blistering of the right foot and midfoot and also of the left lateral aspect of the left foot and midfoot. These are baseline wounds that are known. She also has a sacral decub on the right, which has wound packing and a left sacral decub that is not packed which appears to be a stage II. She also has an abrasion to the right knee, which appears to be a skin tear. She is contracted bilaterally at the lower extremities. NEUROLOGIC: She is confused at baseline, is not following commands. SKIN: Very pale, hot, and dry. DIAGNOSTIC STUDIES/LAB DATA: WBCs 9.0, RBCs 4.13, hemoglobin 11.9, hematocrit 36, platelets 393. Sodium 142, potassium 3.9, chloride 107, CO2 26, BUN 39, creatinine 0.72, GFR 77.2, BUN/creatinine ratio 54.2, glucose 152, lactic acid 2.3, calcium 9.2. Total bilirubin 0.30, AST 23, ALT 16, alk phos 62. Troponin is 0.08 and 0.16. Total protein 6.5, albumin 3.2, globulin 3.3, albumin/ globulin ratio 1.0. TSH 0.55, free T4 1.05. INR 1.46. Venous blood gas; pH 7.39, pCO2 39, pO2 55, bicarb 23.8, venous saturation 91.5%. Urinalysis shows julian, cloudy urine, pH of 5, specific gravity 1.03, 2+ protein, 1+ wbc's, 1+ rbc's, squamous epithelial cells are present, negative bacteria, present hyaline casts. Serology: Influenza A and B are negative. Imaging: Chest x-ray at 6:15 this morning, Radiology read shows increased density in the right perihilar region, recommend followup chest x-ray to resolution. Repeat chest x-ray after fluid administration at 8:46 a.m. shows worsening aeration of the right perihilar and left mid to lower lung zones and a new moderate left pleural effusion. EKG: EKG at 6:15 this morning shows an old left bundle-branch block with a wide complex tachycardia. I interpret this to be an AFib with left bundle- branch and RVR. Rate appears to be greater than 150, somewhere between 150 and 170. IMPRESSION: Ms. Lamar is an 84-year-old female with somewhat complicated recent past medical history including a right-sided pneumonia that was recently treated, who returns to the emergency department today in hypoxic respiratory failure. PLAN: The patient will be admitted to ICU. 1. Septic shock. Source likely a paolo-hilar pneumonia. It is unclear whether this is an aspiration or if she did not have full resolution of her right-sided pneumonia after her last admission. She has received multiple antibiotics in the ED including vancomycin, Flagyl, and Cipro. She does have an allergy to PENICILLIN, although it is unclear in the record what that allergy is. Given her allergy profile, I will place her on aztreonam, could be that we are treating hospital- acquired at this time and continue her on Flagyl for atypical coverage as well. I have sent for urine strep antigen and legionella. Blood cultures have been sent. We will place her on nebs and again continue respiratory support. Lactic acid has been rechecked and has cleared after 30ml/ kg IVNS sepsis bolus. It has gone from 2.3 to 1.0; however, her blood pressure does remain very soft. I placed her on Levophed at 10 and her blood pressure does seem to be responding. We will continue to titrate this down. She has received the fluid bolus of 30 mL/kg; however, she does have a history of critical aortic stenosis and she does appear to be in a fair amount of failure secondary to fluid administration. I would refrain from giving additional fluids given her cardiac status. 2. Acute hypoxemic respiratory failure. The patient has currently been placed on Vapotherm. After several phone calls to the patient's healthcare proxy, Mr. Mohan Arita, phone number is [phone], I did clarify with him the patient's code status. He said that he had several discussions with the patient regarding updating her code status and given the severity of her condition today. He does believe that she would not want aggressive intervention. He has agreed to no intubation and no CPR. He is okay with BiPAP or CPAP and noninvasive measures. He is also okay with blood pressure support and antibiotics, but no feeding tube. So, at this time, the patient was on Vapotherm; however, her O2 saturation even maxed on Vapotherm was still poor. She has now been placed on BiPAP. We will continue to follow ABGs and continue to titrate oxygen as is tolerated, but again no intubation. 3. Atrial fibrillation with rapid ventricular response. Her heart rate in the ED was upwards of the 200 range. I will bolus her with amio of 150 mg IV push and then continue her on a drip at 1 mg given her hypotension. Systolics are in the 70s at this point because of her septic shock. We will continue her on telemetry and monitor her heart rate closely. She does not have any history of atrial fibrillation in the past. She is on metoprolol, but per the records it is for hypertension and not for AFib. I suspect the AFib is secondary to cardiac irritability and high fever. We will hold off on anticoagulation at this time and continue to pursue rate control. 4. Troponinemia. The patient's initial troponin was slightly elevated at 0.08. She did have moderately elevated troponins on her last admission as well, which were attributed to demand ischemia. I suspect she still has a demand ischemia given the rapid heart rate and the respiratory failure. It does not appear that the patient is having chest pain or other anginal equivalents; however, it is difficult to tell given the patient's encephalopathy. At this time, we will continue to trend troponins, but I suspect that we would not be intervening in any meaningful way from a cardiac standpoint given that the healthcare proxy has opted for more conservative measures in terms of her care and the severity of her current condition. We will continue to trend troponins and monitor her on telemetry. 5. History of critical aortic stenosis. I do not find a copy of the recent echocardiogram on the record. I have ordered transthoracic echo for today to evaluate her valves and LV function. We will also monitor her fluid status closely and hold off on additional boluses for blood pressure support. 6. History of asthma. She will be continued on nebs as needed. 7. History of hypertension. I will continue her on her metoprolol more for rate control rather than for blood pressure given that she is hypotensive, but this will be held if her blood pressure remains low. 8. History of osteoarthritis and chronic pain. She is on oxycodone 3 times a day. I have given her morphine. Even though her allergy profile says she is allergic to OPIOID analogues, she does take chronic opioids. I am concerned about withdrawal. We have given her a dose of morphine and we will continue this as needed. 9. History of personality disorder and some mild dementia. We will continue on her home meds of Lexapro, Seroquel, and trazodone. 10. Chronic wounds. Her decubitus is currently packed. She did see Wound Care last time she was here. We will continue with wound care orders per the last visit. We may consider having Wound Care visit this patient again if she has any continued skin breakdown. Every 2-hour turning and positioning given her contractures and monitor skin closely. 11. DVT prophylaxis: The patient has been placed on Lovenox 40 mg daily. 12. Code status: As stated above, her code status has changed. Her MOLST has been updated. She is currently no intubation and no CPR. This has been witnessed by 2 RNs via telephone with the healthcare proxy Mr. Arita. The rest of the patient's course will be determined by further diagnostics, laboratories, and any other input from other providers as warranted during this admission. TIME SPENT: Critical care time spent 75 minutes on admission planning. This plan of care has been discussed with Dr. Oliva, ICU Budget Counselor and he is in agreement with this plan of care. GRACE REYES NP [id number]/CPS #: [id number] Attending Attestation: I personally supervised JOSE EDUARDO Reyes. I agree with above findings. 84y F w/pmhx of Severe , HTN, Dementia; presented with tachycardia upto 200, rapid afib RVR, fever 105, tachypnea, hypoxia req NIV/HFNC. She demonstrated signs of suspected pneumonia of right lung. She was started on pressors, NIV, IV abx, IVF bolus for sepsis. She was also given IV amio for rate control. She has severe sepsis with septic shock. GOC were identified with proxy on chart and MOLST changed to reflect her current condition and deteriorating condition to be DNR/DNI, but continued management. She is admitted to the ICU. I have reviewed case above and findings as well as diagnostic and clinical plan. CC 75min Dayday Oliva MD Budget Counselor [facility]
[2019-05-06 14:39] LABS: Urine Appearance Cloudy; Urine Bilirubin Negative (Negative); Urine Blood Negative (Negative); Urine Color Amber; Urine Glucose Negative (Negative); Urine Ketones Negative (Negative); Urine Nitrite Negative (Negative); Urine Protein 2+(100 mg/dL) (Negative); Urine Urobilinogen Negative (Negative)
[2019-05-06 14:42] LABS: Urine Bacteria Absent (Absent); Urine Red Blood Cell 2+(6-10/hpf) (Absent); Urine White Blood Cell Trace(0-5/hpf) (Absent)
--- NOTE | 2019-05-06 14:50 | ECHO ---
*[facility]* [place] [address] Fax #: [phone] Transthoracic Echocardiogram Patient: Elizabeth Lamar : 1935 Study Date: 05/06/2019 Age: 84 Gender: F HR: 147 bpm Height: 60 in /152.4 cm BSA: 1.55 m^2 Weight: 129.7 lb /59 kg BMI: 25.4 kg/m^2 *Intake Nurse: * Татьяна Fournier [facility] *Referring Physician: * Marcia Reyes *Reading Physician: * Biju Amado MD Indications: Resp Insufficiency. History: Congestive heart failure. Aortic stenosis. Risk factors: Hypertension. Conclusions Summary: - Left ventricle: The cavity size is moderately reduced. Wall thickness is moderately to severely increased. Systolic function is mildly reduced. The estimated ejection fraction is 40-45%. Dyskinesis of the mid-apicalanteroseptal myocardium. There is interventricular dyssynchrony due to LBBB - Right ventricle: Systolic function is normal. - Mitral valve: The Mitral valve annulus appears severely calcified. The leaflets are mildly calcified. There is mild to moderate regurgitation. The valve area index by pressure half-time is 2.9 cm^2/m^2. - Aortic valve: The findings are consistent with critical stenosis. There is mild regurgitation. The mean systolic gradient is 42.0 mm Hg. The LVOT to aortic valve VTI ratio is 0.2. - Pericardium, extracardiac: A trace pericardial effusion is identified. - Pulmonary arteries: Systolic pressure is mildly increased. The peak pressure during systole by Doppler is 35.0 mm Hg. - Compared to study of 01/31/18, the left ventricle function is slightly lower. Critical is the same. Study data: Transthoracic echocardiogram. Procedure: Transthoracic echocardiography was performed. Image quality was fair. Complete 2D, spectral Doppler, and color flow Doppler. Location: ICU Patient status: Inpatient. Patient room number: 3. Rhythm: Atrial fibrillation. Findings Left ventricle: The cavity size is moderately reduced. Wall thickness is moderately to severely increased. Systolic function is mildly reduced. The estimated ejection fraction is 40-45%. There is interventricular dyssynchrony due to LBBB Regional wall motion abnormalities: Dyskinesis of the mid-apicalanteroseptal myocardium. Possible hypokinesis of the apical myocardium. Left ventricular diastolic function parameters are indeterminate. Right ventricle: The cavity size is normal. Systolic function is normal. Left atrium: The atrium is massively dilated. Right atrium: The atrium is normal in size. Mitral valve: The Mitral valve annulus appears severely calcified. The leaflets are mildly calcified. The findings are consistent with mild stenosis. There is mild to moderate regurgitation. Aortic valve: The annulus is calcified. The leaflets are severely calcified. Valve mobility is restricted. The findings are consistent with critical stenosis. There is mild regurgitation. Tricuspid valve: The leaflets are normal thickness. There is no evidence of stenosis. There is mild-moderate regurgitation. Pulmonic valve: The leaflets are mildly thickened. There is no evidence of stenosis. There is mild regurgitation. Aorta: The aortic root appears normal. Pericardium: A trace pericardial effusion is identified. Pulmonary arteries: The main pulmonary artery is normal-sized. Systolic pressure is mildly increased. Systemic veins: Inferior vena cava: Not well visualized. Measurements Left ventricle Value Ref Aortic valve Value Ref PAZ, LAX (L) 2.6 cm 3.8 - 5.2 Caty diam, ED 1.7 cm ----- ESD, LAX 2.2 cm 2.2 - 3.5 Peak v, S 4.1 m/sec ----- FS, LAX (L) 17 % 27 - 45 VTI, S 65.0 cm ----- PW, ED, LAX (H) 1.7 cm 0.6 - 0.9 Mean grad, S 42.0 mm Hg ----- E', lat caty, TDI (L) 4.7 cm/sec >=10.0 Peak grad, S 67.0 mm Hg --- -- E/e', lat caty, 45 LVOT/AV, VTI ratio 0.2 ----- TDI JAVIER, VTI 0.50 cm^2 ----- JAVIER, Vmax 0.60 cm^2 ----- LVOT Value Ref AR peak v 3.5 m/sec ----- Diam, S 1.80 cm AR PHT 178 ms ----- Area 2.5 cm^2 AR peak grad 49 mm Hg ----- Peak francie, S 1 m/sec VTI, S 13.0 cm Mitral valve Value Ref Peak grad, S 4 mm Hg Peak E 2.13 m/sec ----- Mean grad, S 2 mm Hg Decel time 114 ms ----- SV 32 ml PHT 86 ms ----- Mean grad, D 6.0 mm Hg ----- Ventricular septum Value Ref Peak grad, D 15.0 mm Hg ----- IVS, ED (H) 2.0 cm 0.6 - 0.9 MVA, PHT 4.5 cm^2 ----- Right ventricle Value Ref Pulmonic valve Value Ref PAZ, LAX 2.6 cm Peak v, S 1.02 m/sec ----- PAZ minor ax, A4C 2.1 cm 1.9 - 3.5 Peak grad, S 4.0 mm Hg ----- mid Pressure, S 39 mm Hg Tricuspid valve Value Ref TR peak v 2.8 m/sec <=2.8 Left atrium Value Ref Peak RV-RA grad, S 31 mm Hg ----- AP dim, ES (H) 5.60 cm 2.70 - 3.80 Aortic root Value Ref ML dim, A4C 7.1 cm Root diam 2.7 cm <3.8 SI dim, A4C 7.4 cm Vol/bsa, ES, A/L (H) 123 ml/m^2 16 - 34 Ascending aorta Value Ref AAo AP diam, S 2.9 cm ----- Right atrium Value Ref SI dim, ES 4.7 cm 3.4 - 5.3 Pulmonary artery Value Ref ML dim, ES, A4C 4.1 cm 2.6 - 4.4 Pressure, S 35.0 mm Hg ----- Estimated RAP 8 mm Hg Legend: (L) and (H) jake values outside specified reference range. Prepared and electronically signed by Biju Amado MD 05/06/2019 14:50
[2019-05-06] MEDS ORDERED: Amiodarone 360 MG IVPREMIX* 360 MG/200 ML BAG IV SCH (16:30)
[2019-05-06] MEDS ORDERED: Furosemide IV* 10 MG/ML VIAL (40 MG) IV ONE (17:02)
[2019-05-06] MEDS ORDERED: Furosemide IV* 10 MG/ML VIAL (40 MG) ONE (17:05)
[2019-05-06] MEDS: metroNIDAZOLE IV 500 MG/100ML* 500 MG/100 ML BAG IVPB SCH (17:24)
--- NOTE | 2019-05-06 18:06 | PN ---
Progress Note - Progress Note Date of Service: 05/06/19 Note: Critical Care Note Patient remains on NIV, baseline dementia, hypoxic on 100%, sats fluctuate 80s to low 90s, tachypneic. Was on levophed, changed to hanane now 100mcg/min. BP improved. Given lasix 40mg IV x1. given amio 150mg iv x2 doses, continued amio infusion for Afib/RVR. CXR sat done 5pm demonstrating left sided atelectasis/collapse. Bedside US chest done showing atelectasis, hemidiaphragm was elevated high into chest. She does not follow commands, remains contracted and NIV dependant. She cannot cough, Chest PT could be tried but she still does not clear any secretions/mucous so likely to not be useful. Some congestion seems improved, will give IVF PRN. Febrile 102 still, on tylenol PRN GA. overall I feel she has poor prognosis, NIV depedant on 10/02 100% sats low 90s, tachypnea with left lung collapse/plugging, poor mental status and inability to clear airway, high suspicion for aspiration, on pressors for septic shock, with Afib/RVR and Severe complicating matters. She is made DNR/DNI, medical measures as per her HCP, last MOLST changed by him. I suspect her to do poorly, likely to progress with resp failure if not improving. Would probably recommend to go comfort care route. She has recieved some morphine and ativan for her resp distress given she has no further escalation of resp support to offer. Some help to relieve resp distress and discomfort/distress would be very very appropriate given her overall condition. Suspect poor prognosis. Assessment- -acute hypoxic resp failure -left lung collapse -afib with rvr -suspected pneumonia -septic shock -dementia -delirium CC time 35 min Dayday Oliva MD cinetechnician
[2019-05-06] MEDS ORDERED: QUEtiapine TAB* 25 MG PO SCH (21:00)
[2019-05-06] MEDS ORDERED: traZODone TAB* 50 MG TAB PO SCH (21:00)
[2019-05-06] MEDS ORDERED: LORazepam INJ* 2 MG/ML 1 ML VIAL IV PUSH PRN (23:53)
[2019-05-07] MEDS: Morphine INJ* 2 MG/ML 1 ML SYRINGE (TWO MG - NEW SYRINGE VERSION) IV PRN (00:16)
[2019-05-07] MEDS: metroNIDAZOLE IV 500 MG/100ML* 500 MG/100 ML BAG IVPB SCH (00:20)
[2019-05-07] MEDS ORDERED: Morphine INJ* 2 MG/ML 1 ML SYRINGE (TWO MG - NEW SYRINGE VERSION) IV PRN (02:42)
--- NOTE | 2019-05-07 02:44 | PN ---
Hospitalist Progress Note Date of Service: 05/07/19 Cross Cover Note 84 F PMH personality d/o and dementia at baseline and chronic contractures and wounds whom resides at [facility] who presented in septic shock 2/2 to PNA and LL collapse, Afib with RVR and persistent hypoxic resp failure on NIV in setting of recently tx PNA. Also found to have critical on echo. Called several times throughout night, pt moaning agitated and restless, BP remains soft in systolic 90s, though MAP at goal remains tachy with rates in the high 130s, remains febrile, she has required high and frequent doses of morphine needed to help calm pt in setting of BIPAP putting her at high risk for re-aspiration. Discussed deterioration of her clinical status with her health care proxy Mohan Just on the phone, discussed overall her poor prognosis and her inability to quickly bounce back since starting BIPAP over 12 hours ago, furthermore ongoing overwhelming signs of sepsis with tachycardia, fever, tachypnea and clear discomfort on the BiPAP. He shares with me he feels that comfort measures only is more appropriate and he is interested in not furthering her suffering. Her understands that she is actively dying and that all medications and medical interventions will be to treat her pain and suffering and that we will discontinue BiPAP that she is not tolerating, along with discontinue pressors, amoidoarone in favor of Q1 hr morphine and lorazepam pushes. MOLST updated and orders changed, Mohan understands she may pass tonight.
[2019-05-07] MEDS ORDERED: Morphine INJ* 4 MG/ML 1 ML SYRINGE (NEW SYRINGE VERSION) ONE (02:47)
[2019-05-07] MEDS: Morphine INJ* 4 MG/ML 1 ML SYRINGE (NEW SYRINGE VERSION) IV PRN ×2 (05:05→06:42)
[2019-05-07 05:13] VITALS: BP 96/78
--- NOTE | 2019-05-07 09:55 | PN ---
Progress Note - Progress Note Date of Service: 05/07/19 Note: Overnight notes reviewed, patient on Comfort Measures as per Dr. Zavala and HC proxy. Patient appears comfortable this AM on morphine IV pushes PRN. She is having shallow respirations, somewhat agonal at times. HR is tachycardic. She remains non-responsive to verbal or tactile stimulation. Reviewed palliative and comfort care plan with RN. Will reach out to HC proxy with updates as status changes.
--- NOTE | 2019-05-07 11:07 | PN ---
Progress Note - Progress Note Date of Service: 05/07/19 Note: Note Patient placed on comfort care overnight for respiratory failure. She was agonal and progressively declining this morning. She had no pulse, no spontaneous respirations, not responsive. No breath sounds heard, no heart sounds heard. Patient pronounced at 1055 on 05/07/2019 Patients Proxy Mohan Arita was called and notified of . Dayday Oliva MD Aquatics Coordinator
--- NOTE | 2019-05-07 11:26 | DS ---
Discharge Summary Patient Name: Elizabeth Lamar Date of Admission: 05/06/2019 Date of Discharge: 05/07/2019 Attending: Dr Dayday Oliva (barrel cooper), JOSE EDUARDO Reyes Consultants: none Admitting Diagnoses: 1) Severe Sepsis with shock 2) Acute hypoxic respiratory failure 3) Pneumonia 4) Atrial fibrillation with Rapid ventricular Response 5) Delirium Discharge Diagnoses: 1) Severe Sepsis with shock 2) Acute hypoxic respiratory failure 3) Pneumonia 4) Atrial fibrillation with Rapid ventricular Response 5) Delirium 6) Left lung atelectasis 7) Severe Aortic Stenosis HPI/Hospital Course: 84y F w/pmxh of Dementia, Severe Aortic Stenosis, HTN; [place] [facility] [place]; [place] [facility] [place] for respiratory distress and fever. She was found to be in atrial fibrillation with RVR, hypoxia requiring HFNC/NIV, fevers of 105 with tachypnea. She was started on sepsis protocol with IV abx coverage, IV fluids and eventually started on IV vasopressor support. Source of infection suspected to be a pneumonia given increased prominence of right lung markings and overall clinical picture, possibly even aspiration pneumonia with her comorbidities. She was a contracted and frail woman, not following commands. She was admitted to the ICU. Throught the afternoon and evening of 05/06 she developed increasing respiratory distress and hypoxia, with new chest xray findings of left lung collapse. Her proxy decided to make her a DNR/DNI, but continue medical management. Given her overall condition, high NIV requirements, was given intermittent morphine for resp distress. On the night of 05/06 to 05/07 she was progressively worse and after the overnight hospitalist contacted Mohan (her proxy), he decided to pursue a comfort care pathway for her. She was taken off NIV support and started on comfort care. On the morning of 05/07 she showed poor responsiveness, agonal respirations. She eventually went asystolic, absent respirations/pulses. She was pronounced at 1055 AM on 05/07/2019. Her Proxy, Mohan Arita, was notified of her . Vital Signs Temp 100.7 F 05/06/19 23:34 Pulse 119 05/07/19 06:30 Resp 20 05/07/19 06:42 BP 96/78 01/14/20 02:45 Pulse Ox 82 05/07/19 06:30 Intake & Output 05/06/19 05/07/19 05/07/19 18:59 06:59 18:59 Intake Total 2639 616 Output Total 442 505 Balance 2197 111 Weight 67.9 kg Intake: IV Fluids 2019 275 Aztreonam 215 Normal saline 20 60 IVPB 210 Aztreonam 110 Medicated IV 409 341 Amiodarone 137 158 Levophed 188 Neosynephrine 84 183 Oral 0 Output: Chapman 442 505 Physical Exam: Constitutional: poor responsiveness, not alert, +distress, no diaphoresis Head: normocephalic, atraumatic Eyes: no pallor, no icterus ENT: moist mucous membranes Neck: soft, supple, no jvd, no stridor CVS: normal rate, regular, no murmur Chest/Resp: bilateral air entry, + rhales, no wheeze, no rhonchi, no acc muscle use Abdomen/GI: soft, nontender, nondistended, BS+ Ext/Msk: warm, pulses+, no edema; contracted+ Skin: intact, warm Neuro: not awake/alert, unable to assess orientation, conttracted+, pupils sluggish Psych: unable to assess Procedures/Imaging: Chest xray Laboratory/Data: see chart Discharge Medications: none Diet: none Activity: none Condition upon discharge: ; at 1055 AM on 05/07/2019 Disposition: Code Status: DNR/DNI, comfort care pathway Recommendations: none Follow-up: none Total Discharge time 40 minutes Dayday Oliva MD Frequency Checker (Electronically Signed)
== END 2019-05-07 10:55 | disposition expired | DRG 871 ==
LOC: ED 06:10 → ICU 08:47
PROVIDERS: ADMIT Internal Medicine Critical Care Medicine; ATTEND Internal Medicine Critical Care Medicine
PROC: 5A09357 Assistance with Respiratory Ventilation, Less than 24 Consecutive Hours, Continuous Positive Airway Pressure (ICD-10-PCS; principal; 2019-05-06)
PROC: 3E033XZ Introduction of Vasopressor into Peripheral Vein, Percutaneous Approach (ICD-10-PCS; 2019-05-06)
DX: A41.9 Sepsis, unspecified organism (principal); R65.21 Severe sepsis with septic shock; J96.01 Acute respiratory failure with hypoxia; J18.9 Pneumonia, unspecified organism; F05 Delirium due to known physiological condition; I48.91 Unspecified atrial fibrillation; I35.0 Nonrheumatic aortic (valve) stenosis; F03.90 Unspecified dementia, unspecified severity, without behavioral disturbance, psychotic disturbance, mood disturbance, and anxiety; I10 Essential (primary) hypertension; J45.909 Unspecified asthma, uncomplicated; M17.0 Bilateral primary osteoarthritis of knee; F41.9 Anxiety disorder, unspecified; F60.3 Borderline personality disorder; M17.12 Unilateral primary osteoarthritis, left knee; Z96.651 Presence of right artificial knee joint; E89.0 Postprocedural hypothyroidism; Z66 Do not resuscitate; Z88.5 Allergy status to narcotic agent; Z88.0 Allergy status to penicillin
CPT/HCPCS: 36415; 71045; 80053; 81003; 81015; 82803; 83605; 84439; 84443; 84484; 85025; 85610; 85730; 87040; 87086; 87641; 87899; 93005; 93306; 94660; 99284; A9270-GY; J0282; J0744; J1160; J1650; J1885; J1940; J2060; J2270; J2405; J3370